=== PATIENT | male | born 1960 | race Caucasian/White ===

== ENCOUNTER 2021-01-17 10:12 | Inpatient (IN) | payer MEDICARE, SELFPAY ==
[2021-01-17] VITALS (46 sets, daily range): BP systolic 66–174; BP diastolic 44–79; PULSE 63–95; RESP 13–30; TEMP 36.2–36.6; O2SAT 61–100; BMI 13.5
--- NOTE | 2021-01-17 10:50 | ED.GENADULT ---
HPI - General Adult General Chief complaint: Abdominal Pain Stated complaint: FTT Time Seen by Provider: 01/17/21 10:50 History of Present Illness HPI narrative: 60-year-old gentleman with presumed schizophrenia, living with his father complains of ?losing my marbles? reports ?heading toward a psych evaluation, notes that the ?Feds and the FBI are going to call prescriptions into a pharmacy for him. In July he began to have stomach issues and has been having difficulty eating. He believes he has lost 130 lb over last 6 months. He describes no medications at this time. His sister came to visit and was concerned with his increasing psychotic/delusional thinking and his dramatic weight loss and brings him in for further evaluation. Related Data Home Medications Medication Instructions Recorded Confirmed OMEPRAZOLE (PRILOSEC) 20 mg PO Q DAY #0 07/11/11 OXYCODONE/ACET 1 tab PO TIDP #0 02/26/12 baclofen 10 mg PO TIDP #0 02/26/12 gabapentin [Neurontin] 800 mg PO TID #0 02/26/12 MORPHINE SULFATE (Morphine Sulfate 30 mg PO TID #0 03/07/12 ER) Oxycodone (OXYCODONE IR) 5 mg PO Q4HP #0 06/12/12 Allergies Allergy/AdvReac Type Severity Reaction Status Date / Time No Known Drug Allergies Allergy Verified 01/17/21 11:02 Patient History Medical History Psychosis Social History Smoking Status: Current every day smoker Exam Initial Vital Signs Initial Vital Signs: Vital Signs Pulse Rate 84 01/17/21 10:22 Pulse Oximetry 100 01/17/21 10:22 Course Orders Ordered: ED Orders 01/17/21 11:07 Urine Drug Screen, Rapid Stat 01/17/21 11:10 COVID19 - ADMIT ([employer] swab/PCR) Stat 01/17/21 11:18 Complete Blood Count AUTO DIFF Stat Comprehensive Metabolic Panel Stat Lipase Stat Partial Thromboplastin Time Stat Phosphorous Stat Prothrombin Time INR Stat 01/17/21 11:56 CT abdomen pelvis w con Stat CT head/brain wo con Stat XR chest 1V Stat Potassium Chloride 40 meq/ (Sodium Chloride) 520 mls @ 130 mls/hr IV NOW ONE Stop: 01/17/21 15:54 Last Admin: 01/17/21 12:28 Dose: 130 mls/hr Documented by: WALLACE Cosigned by: BTONER Discontinued Medications Sodium Chloride (Normal Saline 0.9%) 1,000 mls @ 1,000 mls/hr IV BOLUS ONE Stop: 01/17/21 12:53 Last Admin: 01/17/21 12:28 Dose: 1,000 mls/hr Documented by: WALLACE Vital Signs Vital signs: Vital Signs - 8 hr 01/17/21 10:22 01/17/21 10:30 01/17/21 10:31 Temperature Pulse Rate 84 85 85 Respiratory Rate Blood Pressure 107/70 Pulse Oximetry 100 100 100 01/17/21 10:58 01/17/21 11:00 01/17/21 11:30 Temperature 97.6 F Pulse Rate 86 86 82 Respiratory Rate 16 Blood Pressure 96/62 96/62 92/63 Pulse Oximetry 100 100 100 01/17/21 12:00 01/17/21 12:20 01/17/21 12:30 Temperature Pulse Rate 81 84 81 Respiratory Rate 14 Blood Pressure 88/53 L 92/63 90/61 Pulse Oximetry 99 100 100 01/17/21 13:00 01/17/21 13:07 01/17/21 13:15 Temperature Pulse Rate 79 80 79 Respiratory Rate 16 16 14 Blood Pressure 84/57 L 83/55 L 86/58 L Pulse Oximetry 100 100 100 01/17/21 13:30 01/17/21 13:35 01/17/21 13:45 Temperature Pulse Rate 82 79 78 Respiratory Rate 22 19 16 Blood Pressure 90/51 L 90/56 L 89/59 L Pulse Oximetry 99 100 100 Medical Decision Making Medical Records Medical records reviewed: Yes I reviewed the patient's medical records. Lab Data Lab results reviewed: Yes I reviewed the patient's lab results. Result diagrams: 01/17/21 11:18 01/17/21 11:18 Labs: Lab Results 01/17/21 01/17/21 01/17/21 Range/Units 11:10 11:18 11:18 WBC 3.6 L (4.5-11.0) X10^3/uL RBC 3.33 L (4.5-5.9) X10^6/uL Hgb 11.6 L (13.5-17.5) g/dL Hct 33.6 L (41-53) % MCV 101.0 H (80-100) fL MCH 34.9 H (26-34) PG MCHC 34.6 (30-36) % RDW 13.9 (11.6-14.8) % Plt Count 154 (150-400) X10^3/uL Neut % (Auto) 50.5 (50-75) % Lymph % (Auto) 36.2 (25-40) % [place] % (Auto) 11.3 (3-14) % Eos % (Auto) 1.0 L (2-4) % Baso % (Auto) 1.0 (0-2) % Neut # (Auto) 1800 (1802-7526) /uL Lymph # (Auto) 1300 (1988-1295) /uL [place] # (Auto) 400 (0-900) /uL Eos # (Auto) 0 (0-450) /uL Baso # (Auto) 0 (0-100) /uL PT 13.6 H (10.1-12.7) SECONDS INR 1.2 (0.9-1.3) APTT 31 (26.4-36.2) SECONDS Sodium (137-145) mmol/L Potassium (3.4-5.1) mmol/L Chloride (98-107) mmol/L Carbon Dioxide (22-32) mmol/L BUN (9-20) mg/dL Creatinine (0.66-1.25) mg/dL Estimated GFR (>60) mL/min BUN/Creatinine Ratio (6-22) Glucose (80-110) mg/dL Calcium (8.4-10.2) mg/dL Phosphorus (2.3-3.7) mg/dL Total Bilirubin (0.2-1.3) mg/dL AST (17-59) IU/L ALT (<50) IU/L Alkaline Phosphatase (38-126) U/L Total Protein (6.3-8.2) g/dL Albumin (3.5-5.0) g/dL Globulin (1.7-4.1) g/dL Albumin/Globulin Ratio (1.0-2.8) Lipase (23-300) U/L SARS-CoV-2 (PCR) Negative (Negative) 01/17/21 01/17/21 Range/Units 11:18 11:18 WBC (4.5-11.0) X10^3/uL RBC (4.5-5.9) X10^6/uL Hgb (13.5-17.5) g/dL Hct (41-53) % MCV (80-100) fL MCH (26-34) PG MCHC (30-36) % RDW (11.6-14.8) % Plt Count (150-400) X10^3/uL Neut % (Auto) (50-75) % Lymph % (Auto) (25-40) % [place] % (Auto) (3-14) % Eos % (Auto) (2-4) % Baso % (Auto) (0-2) % Neut # (Auto) (7243-2004) /uL Lymph # (Auto) (6765-1656) /uL [place] # (Auto) (0-900) /uL Eos # (Auto) (0-450) /uL Baso # (Auto) (0-100) /uL PT (10.1-12.7) SECONDS INR (0.9-1.3) APTT (26.4-36.2) SECONDS Sodium 128 L (137-145) mmol/L Potassium 2.2 L* (3.4-5.1) mmol/L Chloride 80 L (98-107) mmol/L Carbon Dioxide 39 H (22-32) mmol/L BUN 27 H (9-20) mg/dL Creatinine 1.10 (0.66-1.25) mg/dL Estimated GFR > 60.0 (>60) mL/min BUN/Creatinine Ratio 24.5 H (6-22) Glucose 104 (80-110) mg/dL Calcium 8.3 L (8.4-10.2) mg/dL Phosphorus 3.3 (2.3-3.7) mg/dL Total Bilirubin 0.8 (0.2-1.3) mg/dL AST 41 (17-59) IU/L ALT 15 (<50) IU/L Alkaline Phosphatase 99 (38-126) U/L Total Protein 6.0 L (6.3-8.2) g/dL Albumin 2.9 L (3.5-5.0) g/dL Globulin 3.1 (1.7-4.1) g/dL Albumin/Globulin Ratio 0.9 L (1.0-2.8) Lipase 466 H (23-300) U/L SARS-CoV-2 (PCR) (Negative) Discharge Plan Departure Prescriptions: No Action OMEPRAZOLE (PRILOSEC) 20 mg PO Q DAY Qty: 0 RF: 0 baclofen 10 MG tablet 10 mg PO TIDP Qty: 0 RF: 0 gabapentin [Neurontin] 800 MG tablet 800 mg PO TID Qty: 0 RF: 0 OXYCODONE/ACET 1 tab PO TIDP Qty: 0 RF: 0 MORPHINE SULFATE (Morphine Sulfate ER) 30 mg PO TID Qty: 0 RF: 0 Oxycodone (OXYCODONE IR) 5 mg PO Q4HP Qty: 0 RF: 0
[2021-01-17 11:28] LABS: Add Manual Diff / Slide Review NO; Basophils Absolute Auto 0 /uL (0-100); Eosinophils Absolute Auto 0 /uL (0-450); Hematocrit 33.6 % (41-53); Hemoglobin 11.6 g/dL (13.5-17.5); Lymphocytes Absolute Auto 1300 /uL (1100-4500); Lymphocytes Percent Auto 36.2 % (25-40); Mean Corpuscular HGB Conc 34.6 % (30-36); Mean Corpuscular Hemoglobin 34.9 PG (26-34); Monocytes Absolute Auto 400 /uL (0-900); Monocytes Percent Auto 11.3 % (3-14); Neutrophils Absolute Auto 1800 /uL (1500-7000); Neutrophils Percent Auto 50.5 % (50-75); Platelet Count 154 X10^3/uL (150-400); Red Blood Cell Count 3.33 X10^6/uL (4.5-5.9); Red Cell Distribution Width 13.9 % (11.6-14.8); White Blood Cell Count 3.6 X10^3/uL (4.5-11.0)
[2021-01-17 11:34] LABS: INR 1.2 (0.9-1.3); Prothrombin Time 13.6 SECONDS (10.1-12.7)
[2021-01-17 11:36] LABS: PTT Partial Thromboplastin Tim 31 SECONDS (26.4-36.2)
--- NOTE | 2021-01-17 11:38 | ED_ITS ---
HPI - General Adult General Chief complaint: Abdominal Pain Stated complaint: FTT Time Seen by Provider: 01/17/21 10:50 Source: patient Mode of arrival: EMS Limitations: no limitations History of Present Illness HPI narrative: 60-year-old gentleman with a history of psychotic and delusional behavior, history of heavy alcohol use with none since around July of 2020, presents with concerns for failure to thrive. He apparently lives with his father here in [place]. His sister, [place]([phone]) came to visit over the last few days and noted dramatic weight loss, worsening delusions, notes severe abdominal pain since around with minimal p.o. intake and dramatically increased weakness. She notes that he does still continue to smoke. Patient reports that ?I am losing my marbles, but at least I know about it. I am heading toward psych eval. The Feds and the FBI know about it and the pharmacy is going to help me but I do not need a doctor? Related Data Home Medications Medication Instructions Recorded Confirmed No Known Home Medications 01/17/21 01/17/21 Allergies Allergy/AdvReac Type Severity Reaction Status Date / Time No Known Drug Allergies Allergy Verified 01/17/21 11:02 Review of Systems Review of Systems Narrative: Significant abdominal pain, significant weight loss possibly as much as 130 lb in the last 6 months, headaches Remainder of review is limited by his delusional thinking Patient History Medical History Psychosis Social History household members: family Smoking Status: Current every day smoker alcohol intake: never Smoking Status: Current every day smoker alcohol intake frequency: holidays/special occasions only Substance Use Type: does not use Exam Narrative Exam Narrative: General: Cachectic gentleman with sunglasses on wrapped in blankets, poor eye contact HEENT: Dry mucous membranes, normal sclera with reactive pupils, Respiratory: Lungs are clear to auscultation, no wheezing no rales no rhonchi. Full and symmetrical air movement Cardiac: Regular rate and rhythm no murmurs no bruits Abdomen: Scaphoid, no tenderness to palpation, no rebound or guarding, hypoactive bowel tones, no flank pain Skin: Pale and thin, no rashes Neurologic: Grossly neurologically intact with no obvious asymmetries or abnormalities Extremities: No trauma, well perfused Psych: Psychotic and delusional but cooperative with overall poor insight Initial Vital Signs Initial Vital Signs: Vital Signs Pulse Rate 84 01/17/21 10:22 Pulse Oximetry 100 01/17/21 10:22 Course Orders Ordered: ED Orders 01/17/21 11:07 Urine Drug Screen, Rapid Stat 01/17/21 11:10 COVID19 - ADMIT ([employer] swab/PCR) Stat 01/17/21 11:18 Complete Blood Count AUTO DIFF Stat Comprehensive Metabolic Panel Stat Lactate (Lactic Acid) Stat Lipase Stat Partial Thromboplastin Time Stat Phosphorous Stat Prothrombin Time INR Stat 01/17/21 11:56 CT abdomen pelvis w con Stat CT head/brain wo con Stat XR chest 1V Stat 01/17/21 15:17 Blood Culture Stat Acetaminophen (Acetaminophen 325 Mg Tablet) 650 mg PO Q6HR PRN PRN Reason: Fever Enoxaparin Sodium (Enoxaparin 40 Mg/0.4 Ml Syringe) 40 mg SUBCUT DAILY KAILYN Piperacillin/Tazobactam/Dextrose (Zosyn) 4.5 gm in 100 mls @ 200 mls/hr IV NOW KAILYN Last Infusion: 01/17/21 16:32 Dose: 0 mls/hr Documented by: Admin: 01/17/21 15:59 Dose: 200 mls/hr Documented by: ARUNA Lactated Ringer's (Lactated Ringers) 1,000 mls @ 150 mls/hr IV CONT KAILYN Last Admin: 01/17/21 18:27 Dose: 150 mls/hr Documented by: AGUILAR Famotidine (Pepcid) 20 mg in 50 mls @ 200 mls/hr IV Q12H KAILYN Piperacillin/Tazobactam/Dextrose (Zosyn) 3.375 gm in 50 mls @ 12.5 mls/hr IV Q8H KAILYN Potassium Chloride 40 meq/ (Sodium Chloride) 520 mls @ 130 mls/hr IV Q4H KAILYN Stop: 01/18/21 01:51 Last Admin: 01/17/21 18:29 Dose: 130 mls/hr Documented by: AGUILAR Cosigned by: SIVA Metoclopramide HCl (Metoclopramide 10 Mg/2 Ml Inj) 10 mg IV Q8HR PRN PRN Reason: Nausea And Vomiting Morphine Sulfate (Morphine 2 Mg/Ml Inj) 2 mg IV Q4HR PRN PRN Reason: abdominal pain Naloxone HCl (Naloxone 0.4 Mg/Ml Vial) 0.2 mg IV Q2MIN PRN PRN Reason: Opiate Reversal Nicotine (Nicotine 14 Patch) 14 mg TOP DAILY KAILYN Ondansetron HCl (Ondansetron 4 Mg/2 Ml Inj) 4 mg IV Q6HR PRN PRN Reason: Nausea And Vomiting Sodium Chloride (Sodium Chloride 0.9% Flush) 10 ml IV PRN PRN PRN Reason: Flush Discontinued Medications Potassium Chloride 40 meq/ (Sodium Chloride) 520 mls @ 130 mls/hr IV NOW ONE Stop: 01/17/21 15:54 Last Infusion: 01/17/21 15:46 Dose: 0 mls/hr Documented by: ARUNA Cosigned by: WALLACE Admin: 01/17/21 12:28 Dose: 130 mls/hr Documented by: WALLACE Cosigned by: ZEYNEP Sodium Chloride (Normal Saline 0.9%) 1,000 mls @ 1,000 mls/hr IV BOLUS ONE Stop: 01/17/21 12:53 Last Infusion: 01/17/21 15:46 Dose: 0 mls/hr Documented by: Admin: 01/17/21 12:28 Dose: 1,000 mls/hr Documented by: WALLACE Lactated Ringer's (Lactated Ringers) 1,000 mls @ 1,000 mls/hr IV BOLUS ONE Stop: 01/17/21 18:07 Last Admin: 01/17/21 17:15 Dose: 1,000 mls/hr Documented by: SIVA Vital Signs Vital signs: Vital Signs - 8 hr 01/17/21 11:30 01/17/21 12:00 01/17/21 12:20 Pulse Rate 82 81 84 Respiratory Rate Blood Pressure 92/63 88/53 L 92/63 Pulse Oximetry 100 99 100 01/17/21 12:30 01/17/21 13:00 01/17/21 13:07 Pulse Rate 81 79 80 Respiratory Rate 14 16 16 Blood Pressure 90/61 84/57 L 83/55 L Pulse Oximetry 100 100 100 01/17/21 13:15 01/17/21 13:30 01/17/21 13:35 Pulse Rate 79 82 79 Respiratory Rate 14 22 19 Blood Pressure 86/58 L 90/51 L 90/56 L Pulse Oximetry 100 99 100 01/17/21 13:45 01/17/21 14:00 01/17/21 14:15 Pulse Rate 78 78 78 Respiratory Rate 16 16 14 Blood Pressure 89/59 L 87/59 L 86/58 L Pulse Oximetry 100 100 100 01/17/21 14:30 01/17/21 14:36 01/17/21 14:45 Pulse Rate 72 70 80 Respiratory Rate 14 21 19 Blood Pressure 73/52 L 74/51 L 87/58 L Pulse Oximetry 100 100 100 Medical Decision Making Medical Records Medical records reviewed: Yes I reviewed the patient's medical records. Lab Data Lab results reviewed: Yes I reviewed the patient's lab results. Result diagrams: 01/17/21 11:18 01/17/21 11:18 Labs: Lab Results 01/17/21 01/17/21 01/17/21 Range/Units 11:10 11:18 11:18 WBC 3.6 L (4.5-11.0) X10^3/uL RBC 3.33 L (4.5-5.9) X10^6/uL Hgb 11.6 L (13.5-17.5) g/dL Hct 33.6 L (41-53) % MCV 101.0 H (80-100) fL MCH 34.9 H (26-34) PG MCHC 34.6 (30-36) % RDW 13.9 (11.6-14.8) % Plt Count 154 (150-400) X10^3/uL Neut % (Auto) 50.5 (50-75) % Lymph % (Auto) 36.2 (25-40) % [place] % (Auto) 11.3 (3-14) % Eos % (Auto) 1.0 L (2-4) % Baso % (Auto) 1.0 (0-2) % Neut # (Auto) 1800 (3910-8432) /uL Lymph # (Auto) 1300 (6261-1142) /uL [place] # (Auto) 400 (0-900) /uL Eos # (Auto) 0 (0-450) /uL Baso # (Auto) 0 (0-100) /uL PT 13.6 H (10.1-12.7) SECONDS INR 1.2 (0.9-1.3) APTT 31 (26.4-36.2) SECONDS Sodium (137-145) mmol/L Potassium (3.4-5.1) mmol/L Chloride (98-107) mmol/L Carbon Dioxide (22-32) mmol/L BUN (9-20) mg/dL Creatinine (0.66-1.25) mg/dL Estimated GFR (>60) mL/min BUN/Creatinine Ratio (6-22) Glucose (80-110) mg/dL Lactate (0.7-2.1) mmol/L Calcium (8.4-10.2) mg/dL Phosphorus (2.3-3.7) mg/dL Total Bilirubin (0.2-1.3) mg/dL AST (17-59) IU/L ALT (<50) IU/L Alkaline Phosphatase (38-126) U/L Total Protein (6.3-8.2) g/dL Albumin (3.5-5.0) g/dL Globulin (1.7-4.1) g/dL Albumin/Globulin Ratio (1.0-2.8) Lipase (23-300) U/L SARS-CoV-2 (PCR) Negative (Negative) 01/17/21 01/17/21 01/17/21 Range/Units 11:18 11:18 11:18 WBC (4.5-11.0) X10^3/uL RBC (4.5-5.9) X10^6/uL Hgb (13.5-17.5) g/dL Hct (41-53) % MCV (80-100) fL MCH (26-34) PG MCHC (30-36) % RDW (11.6-14.8) % Plt Count (150-400) X10^3/uL Neut % (Auto) (50-75) % Lymph % (Auto) (25-40) % [place] % (Auto) (3-14) % Eos % (Auto) (2-4) % Baso % (Auto) (0-2) % Neut # (Auto) (6438-3352) /uL Lymph # (Auto) (6877-3311) /uL [place] # (Auto) (0-900) /uL Eos # (Auto) (0-450) /uL Baso # (Auto) (0-100) /uL PT (10.1-12.7) SECONDS INR (0.9-1.3) APTT (26.4-36.2) SECONDS Sodium 128 L (137-145) mmol/L Potassium 2.2 L* (3.4-5.1) mmol/L Chloride 80 L (98-107) mmol/L Carbon Dioxide 39 H (22-32) mmol/L BUN 27 H (9-20) mg/dL Creatinine 1.10 (0.66-1.25) mg/dL Estimated GFR > 60.0 (>60) mL/min BUN/Creatinine Ratio 24.5 H (6-22) Glucose 104 (80-110) mg/dL Lactate 1.0 (0.7-2.1) mmol/L Calcium 8.3 L (8.4-10.2) mg/dL Phosphorus 3.3 (2.3-3.7) mg/dL Total Bilirubin 0.8 (0.2-1.3) mg/dL AST 41 (17-59) IU/L ALT 15 (<50) IU/L Alkaline Phosphatase 99 (38-126) U/L Total Protein 6.0 L (6.3-8.2) g/dL Albumin 2.9 L (3.5-5.0) g/dL Globulin 3.1 (1.7-4.1) g/dL Albumin/Globulin Ratio 0.9 L (1.0-2.8) Lipase 466 H (23-300) U/L SARS-CoV-2 (PCR) (Negative) Imaging Data CT scan - abdomen/pelvis: Radiologist's Impression: FINDINGS: Image quality: Excellent. ABDOMEN: Lung bases: There are moderate to severe centrilobular emphysematous changes within the visualized lung bases. Mild dependent atelectasis and scarring are also present. Heart size is normal. Solid organs: There is hypoattenuation of the liver suggestive of fatty infiltration with slight relative hypoattenuation along the gallbladder fossa which may represent focal sparing or mild edema. The gallbladder demonstrates mild wall enhancement without definite thickening. A few small calcified gallstones are demonstrated in the gallbladder fundus. Biliary system is non-dilated. The spleen is normal in size. No adrenal nodules. Kidneys demonstrate no hydronephrosis. There is peripancreatic fat stranding and fluid compatible with acute pancreatitis. Hypoenhancement is demonstrated within the pancreatic head, uncinate process, and body suggestive of necrotizing pancreatitis. There is a curvilinear hypoattenuating loculated fluid collection demonstrated anterior to the pancreatic head coursing posterior inferior to the stomach measuring approximately 2.6 cm in anteroposterior extent by 3.0 cm in craniocaudal extent by 0.7 cm in thickness. The findings likely represent an acute necrotic collection. Hypoenhancement also demonstrated distally in the pancreatic tail with an adjacent loculated thick-walled curvilinear peripancreatic collection measuring up to approximately 2.0 x 1.0 cm in transverse dimension extending to the spleen. This appears contiguous with an intrapancreatic loculated fluid collection in the pancreatic tail measuring up to 1.6 x 1.1 cm. Findings also likely represent an acute necrotic collection. There is mild dilatation of the pancreatic duct which measures up to 0.3 cm in the pancreatic body and tail. Coarse calcifications are demonstrated within the uncinate process of the pancreas likely related to sequelae of chronic pancreatitis. Peritoneum and bowel: There is gastric wall thickening in the antrum adjacent to the peripancreatic inflammatory changes. Hyperemia is also demonstrated within the gastric wall. Bowel loops demonstrate normal wall thickness and caliber. No evidence of appendicitis. Moderate colonic stool distention is present in the rectum which may reflect constipation or mild impaction. A small amount of peripancreatic free fluid is demonstrated as described above. No free air Nodes and vessels: No retroperitoneal or mesenteric adenopathy by size criteria. Aorta and inferior vena cava are normal in size. Miscellaneous: No ventral hernias. PELVIS: Genitourinary: Bladder wall thickness is normal. Miscellaneous: No inguinal hernias or adenopathy. Bones: No suspicious bony lesions. No vertebral body compression fractures. IMPRESSION: 1. Findings compatible with necrotizing pancreatitis as described with 2 small loculated associated peripancreatic fluid collections likely representing acute necrotic collections. Mild pancreatic duct dilatation also demonstrated in the pancreatic body and tail. Follow-up is recommended to demonstrate resolution and exclude an underlying mass. 2. No biliary ductal dilatation. 3. Small calcified gallstones in the gallbladder fundus with mild nonspecific enhancement of the gallbladder wall . No definite gallbladder wall thickening or peripancreatic fluid. If there is clinical suspicion for cholecystitis, further evaluation may be obtained with ultrasound. 4. Segmental gastric wall thickening in the antrum likely representing reactive changes secondary to adjacent pancreatitis. Nonspecific hyperemia in the gastric wall may also be reactive. Dictated by: Alejandro Yanes M.D. on 01/17/2021 at 12:31 Chest x-ray: Radiologist's Impression: FINDINGS: Surgical changes and devices: None. Lungs and pleura: Lungs are clear. No pleural effusions or pneumothorax. Mediastinum: Mediastinal contours appear normal. Heart size is normal. Bones and chest wall: No suspicious bony lesions. Overlying soft tissues appear unremarkable. IMPRESSION: No acute pulmonary process. Dictated by: Trini Aguirre M.D. on 01/17/2021 at 11:13 CT scan - head: Radiologist's Impression: FINDINGS: Image quality: Excellent. CSF spaces: Basal cisterns are patent. No extra-axial fluid collections. Ventricles are normal in size and shape. Brain: No intracranial hemorrhage, mass, or mass effect. Olmedo-white matter interface appears preserved. Skull and face: Calvarium and visualized facial bones are intact, without suspicious lesions. Sinuses: Visualized sinuses and mastoids are clear. IMPRESSION: 1. No acute intracranial abnormality. Dictated by: Alejandro Yanes M.D. 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 Lipase is only minimally elevated at this point but he continues to have abdominal pain. Dramatic weight loss secondary to abdominal pain with persistent nausea all complicated by his baseline psychosis, delusions. No evidence of sepsis, acute coronary syndrome, tumors or masses and no intracranial abnormalities appreciated. With his dramatic weight loss and cachexia he may need TPN at this point certainly will need hospitalization for pain and nausea management. At very high risk for refeeding syndrome and ventricular arrhythmias. He is currently on his 2nd L of fluid and when he is awake and talking blood pressures are in the systolic 90 range when he sleeping may drop as low as 70. He is not febrile and I do not suspect that he is septic at this time. Because of the necrotizing pancreatitis identified on the CT scan will add Zosyn. Will also add a lactic acid. Care is been reviewed with Dr. Dodson, hospitalist she will accept admission. Patient will go to the ICU with the low blood pressures and use his hypokalemia as well as hyponatremia. Will likely need TPN with the severity of cachexia and the continued abdominal pain, nausea and vomiting. Chronic psychiatric issues are stable however he may well benefit from inpatient psychiatric consultation. Discharge Plan Departure Patient Disposition: Admitted As Inpatient Clinical Impression: Necrotizing pancreatitis, Acute hypokalemia, Acute hyponatremia, Paranoid delusion Admit Date/Time: 01/17/21 14:59 Admit Provider: Christiane Dodson
[2021-01-17 11:39] LABS: Alanine Aminotransferase 15 IU/L (<50); Albumin 2.9 g/dL (3.5-5.0); Albumin Globulin Ratio 0.9 (1.0-2.8); Alkaline Phosphatase 99 U/L (38-126); Aspartate Aminotransferase 41 IU/L (17-59); BUN Creatinine Ratio 24.5 (6-22); Bilirubin Total 0.8 mg/dL (0.2-1.3); Blood Urea Nitrogen 27 mg/dL (9-20); Calcium 8.3 mg/dL (8.4-10.2); Carbon Dioxide 39 mmol/L (22-32); Chloride 80 mmol/L (98-107); Estimated Glomerular Filt Rate > 60.0 mL/min (>60); Globulin 3.1 g/dL (1.7-4.1); Glucose 104 mg/dL (80-110); HEMOLYSIS < 15 (0-50); Lipase 466 U/L (23-300); Sodium 128 mmol/L (137-145)
[2021-01-17 11:41] LABS: Potassium 2.2 mmol/L (3.4-5.1)
[2021-01-17 11:55] LABS: COVID19 - ADMIT (NP swab/PCR) Negative (Negative)
--- NOTE | 2021-01-17 11:56 | DI.CT.S_ITS ---
PROCEDURE: CT ABDOMEN PELVIS W CON INDICATIONS: abdominal pain, weight loss TECHNIQUE: After the administration of intravenous contrast, 5 mm thick sections acquired from the diaphragm to the symphysis. 5 mm coronal and sagittal reformats were acquired. For radiation dose reduction, the following was used: automated exposure control, adjustment of mA and/or kV according to patient size. COMPARISON: [facility], CT, ABDOMEN/PELVIS WITH CONTRAST, 06/12/2007, 14:00. FINDINGS: Image quality: Excellent. ABDOMEN: Lung bases: There are moderate to severe centrilobular emphysematous changes within the visualized lung bases. Mild dependent atelectasis and scarring are also present. Heart size is normal. Solid organs: There is hypoattenuation of the liver suggestive of fatty infiltration with slight relative hypoattenuation along the gallbladder fossa which may represent focal sparing or mild edema. The gallbladder demonstrates mild wall enhancement without definite thickening. A few small calcified gallstones are demonstrated in the gallbladder fundus. Biliary system is non-dilated. The spleen is normal in size. No adrenal nodules. Kidneys demonstrate no hydronephrosis. There is peripancreatic fat stranding and fluid compatible with acute pancreatitis. Hypoenhancement is demonstrated within the pancreatic head, uncinate process, and body suggestive of necrotizing pancreatitis. There is a curvilinear hypoattenuating loculated fluid collection demonstrated anterior to the pancreatic head coursing posterior inferior to the stomach measuring approximately 2.6 cm in anteroposterior extent by 3.0 cm in craniocaudal extent by 0.7 cm in thickness. The findings likely represent an acute necrotic collection. Hypoenhancement also demonstrated distally in the pancreatic tail with an adjacent loculated thick-walled curvilinear peripancreatic collection measuring up to approximately 2.0 x 1.0 cm in transverse dimension extending to the spleen. This appears contiguous with an intrapancreatic loculated fluid collection in the pancreatic tail measuring up to 1.6 x 1.1 cm. Findings also likely represent an acute necrotic collection. There is mild dilatation of the pancreatic duct which measures up to 0.3 cm in the pancreatic body and tail. Coarse calcifications are demonstrated within the uncinate process of the pancreas likely related to sequelae of chronic pancreatitis. Peritoneum and bowel: There is gastric wall thickening in the antrum adjacent to the peripancreatic inflammatory changes. Hyperemia is also demonstrated within the gastric wall. Bowel loops demonstrate normal wall thickness and caliber. No evidence of appendicitis. Moderate colonic stool distention is present in the rectum which may reflect constipation or mild impaction. A small amount of peripancreatic free fluid is demonstrated as described above. No free air Nodes and vessels: No retroperitoneal or mesenteric adenopathy by size criteria. Aorta and inferior vena cava are normal in size. Miscellaneous: No ventral hernias. PELVIS: Genitourinary: Bladder wall thickness is normal. Miscellaneous: No inguinal hernias or adenopathy. Bones: No suspicious bony lesions. No vertebral body compression fractures. IMPRESSION: 1. Findings compatible with necrotizing pancreatitis as described with 2 small loculated associated peripancreatic fluid collections likely representing acute necrotic collections. Mild pancreatic duct dilatation also demonstrated in the pancreatic body and tail. Follow-up is recommended to demonstrate resolution and exclude an underlying mass. 2. No biliary ductal dilatation. 3. Small calcified gallstones in the gallbladder fundus with mild nonspecific enhancement of the gallbladder wall . No definite gallbladder wall thickening or peripancreatic fluid. If there is clinical suspicion for cholecystitis, further evaluation may be obtained with ultrasound. 4. Segmental gastric wall thickening in the antrum likely representing reactive changes secondary to adjacent pancreatitis. Nonspecific hyperemia in the gastric wall may also be reactive. Dictated by: Alejandro Yanes M.D. on 01/17/2021 at 12:31 Approved by: Alejandro Yanes M.D. on 01/17/2021 at 12:43
--- NOTE | 2021-01-17 11:56 | DI.RAD.S_ITS ---
PROCEDURE: XR CHEST 1V INDICATIONS: cough TECHNIQUE: One view of the chest was acquired. COMPARISON: [facility], CR, CHEST 1VW (PORTABLE), 04/26/2012, 8:36. [facility], CR, CHEST 2 VIEW, 07/28/2011, 11:13. FINDINGS: Surgical changes and devices: None. Lungs and pleura: Lungs are clear. No pleural effusions or pneumothorax. Mediastinum: Mediastinal contours appear normal. Heart size is normal. Bones and chest wall: No suspicious bony lesions. Overlying soft tissues appear unremarkable. IMPRESSION: No acute pulmonary process. Dictated by: Trini Aguirre M.D. on 01/17/2021 at 11:13 Approved by: Trini Aguirre M.D. on 01/17/2021 at 11:14
--- NOTE | 2021-01-17 11:56 | DI.CT.S_ITS ---
PROCEDURE: CT HEAD/BRAIN WO CON INDICATIONS: altered mental status TECHNIQUE: Noncontrast 4.5 mm thick angled axial sections acquired from the foramen magnum to the vertex, with coronal and sagittal reformats. For radiation dose reduction, the following was used: automated exposure control, adjustment of mA and/or kV according to patient size. COMPARISON: [facility], CT, CT BRAIN WO CON, 12/26/2016, 13:00. FINDINGS: Image quality: Excellent. CSF spaces: Basal cisterns are patent. No extra-axial fluid collections. Ventricles are normal in size and shape. Brain: No intracranial hemorrhage, mass, or mass effect. Olmedo-white matter interface appears preserved. Skull and face: Calvarium and visualized facial bones are intact, without suspicious lesions. Sinuses: Visualized sinuses and mastoids are clear. IMPRESSION: 1. No acute intracranial abnormality. Dictated by: Alejandro Yanes M.D. on 01/17/2021 at 12:28 Approved by: Alejandro Yanes M.D. on 01/17/2021 at 12:30
[2021-01-17 12:18] LABS: Phosphorous 3.3 mg/dL (2.3-3.7)
[2021-01-17] MEDS: POTASSIUM CHLORIDE 40 MEQ in SODIUM CHLORIDE 0.9% 500 ML 130 ML IV ×2 (12:28→18:29)
[2021-01-17] MEDS: SODIUM CHLORIDE 0.9% 1,000 ML 1000 ML IV (12:28)
--- NOTE | 2021-01-17 13:15 | PC.NURSE ---
Dr Sandoval aware of pts bp,no new orders at this time.
[2021-01-17] MEDS: PIPERACILLIN-TAZO 4.5 GM/100 ML FROZ.PIGGY IV (15:59)
[2021-01-17] MEDS: LACTATED RINGERS 1,000 ML 1000 ML IV (17:15)
--- NOTE | 2021-01-17 18:14 | P.HP_ITS ---
History of Present Illness History of Present Illness Date Patient Seen: 01/17/21 Chief complaint: FTT Narrative: The patient is a 60-year-old male with an on diagnosis psychiatric disorder likely schizophrenia who presents to the hospital for nausea vomiting abdominal pain and significant weight loss. Patient is a poor historian. He is somewhat agitated and irritable related to answering questions which were previously discussed in the emergency department. Having said that the patient reports for the past 7 weeks he has been unable to eat. He describes significant nausea and inability to tolerate taking anything orally. He has had associated abdominal pain also for the past 7 weeks. He denies any vomiting. He denies any hematemesis. He denies any melena. He denies bright red blood per rectum. Patient states he used to drink heavily. He quit about 7 weeks ago. He reports fevers but is unclear how high his temperature was. He has no chills, no shortness of breath. The patient states he has lost over 130 lb over the past 6 months. He believes that the FBI is monitoring him and after him. He does admit to using marijuana for an appetite stimulant but is on no other medications. The patient has not seen a physician in many years. Patient reports he quit smoking however per his sister he continues to smoke significantly. The sister the came from [place] to visit him and recommended he present to the hospital for further evaluation. The patient is significantly mac aided. He refuses to cooperate with answering questions in the further and is admitted to the hospital for further evaluation. In the emergency room his white count was 3.6, hemoglobin 11.6, hematocrit 33.6. His MCV is 101. His sodium was 128 potassium 2.2 chloride 80 CO2 of 39 BUN of 27 with a creatinine of 1.1 his total protein is 6 albumin is 2.9 lipase is 466. His COVID test PCR is negative. Patient had a CT of the abdomen and pelvis remarkable for peripancreatic fat stranding with fluid compatible with acute pancreatitis. There was hypo enhancement demonstrated within the pancreatic head, uncinate process, and body suggestive of necrotizing pancreatitis. There was a curvy linear hypoattenuating loculated fluid collection anteriorly to the pancreatic head. This is 2.6 cm anteriorly 3 cm craniocaudal and 0.7 cm in thickness. This is felt to be in acute necrotic collection. There is also distally in the pancreatic tail a loculated thick-walled peripancreatic collection measuring 2 x 1 cm. This is contiguous with an intrapancreatic loculated fluid collection in the pancreatic tail measuring 1.6 x 1.3 the gastric wall is thickened in the antrum. Patient also had a head CT in the emergency department which was negative. Chest x-ray confirmed no acute pulmonary process. Patient is admitted to the hospital for further evaluation of his necrotizing pancreatitis and significant weight loss. Patient was hypotensive in the emergency room with his systolic blood pressure of 81/55. Serum lactate was normal. The patient was admitted to the hospital for necrotizing pancreatitis, dehydration, and significant severe protein calorie malnutrition. Patient History Medical History (Updated 01/17/21 @ 14:55 by Maria Teresa Sandoval MD) Psychosis Family & Social History Social History: household members family Prior Living Arrangements House Safety & Behavioral: Feels Safe in Current Yes Environment Been Physically Hurt or No Threatened By a Person Suicidal Ideation Description None Suicide Plan Description No Plan Tobacco & Substance use: Tobacco type cigarettes Smoking Status Current every day smoker alcohol intake never alcohol intake frequency holiday/special occasion Substance Use Type marijuana Meds Home Medications and Allergies Home Medications Medication Instructions Recorded Confirmed Type No Known Home Medications 01/17/21 01/17/21 History Allergies Allergy/AdvReac Type Severity Reaction Status Date / Time No Known Drug Allergies Allergy Verified 01/17/21 11:02 Review of Systems Review of Systems Narrative: Patient is uncooperative with exam and will not answer questions further. He will not provide family history as well. ROS: Yes All systems reviewed with the patient and are negative except as otherwise documented Exam Vital Signs (past 8 hours): - 01/17/21 10:22 01/17/21 10:30 01/17/21 10:31 Temperature Pulse Rate 84 85 85 Respiratory Rate Blood Pressure 107/70 Pulse Oximetry 100 100 100 01/17/21 10:58 01/17/21 11:00 01/17/21 11:30 Temperature 97.6 F Pulse Rate 86 86 82 Respiratory Rate 16 Blood Pressure 96/62 96/62 92/63 Pulse Oximetry 100 100 100 01/17/21 12:00 01/17/21 12:20 01/17/21 12:30 Temperature Pulse Rate 81 84 81 Respiratory Rate 14 Blood Pressure 88/53 L 92/63 90/61 Pulse Oximetry 99 100 100 01/17/21 13:00 01/17/21 13:07 01/17/21 13:15 Temperature Pulse Rate 79 80 79 Respiratory Rate 16 16 14 Blood Pressure 84/57 L 83/55 L 86/58 L Pulse Oximetry 100 100 100 01/17/21 13:30 01/17/21 13:35 01/17/21 13:45 Temperature Pulse Rate 82 79 78 Respiratory Rate 22 19 16 Blood Pressure 90/51 L 90/56 L 89/59 L Pulse Oximetry 99 100 100 01/17/21 14:00 01/17/21 14:15 01/17/21 14:30 Temperature Pulse Rate 78 78 72 Respiratory Rate 16 14 14 Blood Pressure 87/59 L 86/58 L 73/52 L Pulse Oximetry 100 100 100 01/17/21 14:36 01/17/21 14:45 01/17/21 15:00 Temperature Pulse Rate 70 80 78 Respiratory Rate 21 19 16 Blood Pressure 74/51 L 87/58 L 84/57 L Pulse Oximetry 100 100 100 01/17/21 15:30 01/17/21 16:33 01/17/21 17:02 Temperature Pulse Rate 80 77 Respiratory Rate 16 Blood Pressure 87/66 L 81/55 L Pulse Oximetry 100 Oxygen Delivery Method Room Air Narrative Exam Narrative: Ill-appearing emaciated cachectic male lying in bed somewhat agitated it and minimally cooperative HEENT: Severe bitemporal wasting, pale, oropharynx reveals dry mucous membranes, neck is supple without adenopathy, no thyromegaly Lungs: Decreased breath sounds but clear to auscultation Cardiac exam: Regular rate and rhythm normal S1-S2 Abdomen: Scaphoid soft and nontender, no hepatosplenomegaly noted Extremities: No edema Neuro exam: Patient is awake and answers questions appropriately, he is minimally cooperative with exam, he is able to move all extremities Psychiatric exam: Patient is delusional, paranoid, expresses paranoid delusions that the FBI is monitoring him. He responds appropriately then will express paranoid delusions. Objective Labs Result Diagrams: 01/17/21 11:18 01/17/21 11:18 Labs: Laboratory Results - last 24 hr 01/17/21 01/17/21 01/17/21 11:10 11:18 11:18 WBC 3.6 L RBC 3.33 L Hgb 11.6 L Hct 33.6 L MCV 101.0 H MCH 34.9 H MCHC 34.6 RDW 13.9 Plt Count 154 Neut % (Auto) 50.5 Lymph % (Auto) 36.2 [place] % (Auto) 11.3 Eos % (Auto) 1.0 L Baso % (Auto) 1.0 Neut # (Auto) 1800 Lymph # (Auto) 1300 [place] # (Auto) 400 Eos # (Auto) 0 Baso # (Auto) 0 PT 13.6 H INR 1.2 APTT 31 Sodium Potassium Chloride Carbon Dioxide BUN Creatinine Estimated GFR BUN/Creatinine Ratio Glucose Lactate Calcium Phosphorus Total Bilirubin AST ALT Alkaline Phosphatase Total Protein Albumin Globulin Albumin/Globulin Ratio Lipase SARS-CoV-2 (PCR) Negative 01/17/21 01/17/21 01/17/21 11:18 11:18 11:18 WBC RBC Hgb Hct MCV MCH MCHC RDW Plt Count Neut % (Auto) Lymph % (Auto) [place] % (Auto) Eos % (Auto) Baso % (Auto) Neut # (Auto) Lymph # (Auto) [place] # (Auto) Eos # (Auto) Baso # (Auto) PT INR APTT Sodium 128 L Potassium 2.2 L* Chloride 80 L Carbon Dioxide 39 H BUN 27 H Creatinine 1.10 Estimated GFR > 60.0 BUN/Creatinine Ratio 24.5 H Glucose 104 Lactate 1.0 Calcium 8.3 L Phosphorus 3.3 Total Bilirubin 0.8 AST 41 ALT 15 Alkaline Phosphatase 99 Total Protein 6.0 L Albumin 2.9 L Globulin 3.1 Albumin/Globulin Ratio 0.9 L Lipase 466 H SARS-CoV-2 (PCR) Assessment & Plan Assessment and plan (1) Paranoid delusion: Status: Acute Assessment & Plan narrative: Impression 1. 60-year-old male admitted to the hospital with severe necrotizing pancreatitis -Patient presents with severe weight loss, wbc 3.0, nausea, and abdominal pain -CT scan confirms: emphesema, nectrotizing pancreatitis, with 2 small loculated peripancreatic fluid collections likely representing acute necrotic collections. There is mild pancreatic duct dilation, but no bilary ductal dilation, small gallstones in the gall bladder fundus identified -lipase elevated at 466 -patient hypotensive normal lactate and afebrile -will continue IV hydration, antiemetics, and pain medication -will obtain MRCP tomorrow to rule out significant gallstone disease 2. Severe protein calorie malnutrition -patient is emaciated and cachectic, albumin is 2.9, he has a BMI of 13.5 -patient is at high risk for refeeding syndrome -will place a PICC line, request dietary consultation, and consider initiation of TPN given his severe protein calorie malnutrition -given the patient's significant weight loss he is at high risk for morbidity and mortality -although his pancreatic loculated cysts or small should he require surgical intervention it is unlikely that the patient would survive based on his significant protein calorie malnutrition -suspect hypotension related to hypovolemia from poor oral intake no evidence to suggest severe sepsis at this time 3. Tobacco dependence -patient was counseled to discontinue smoking -will start a nicotine patch this evening 4. Probable schizophrenia versus other psychosis -patient is calm, currently untreated, and intermittently cooperative -consider psychiatric consultation if appropriate 5. Hypokalemia -will replace 6. Hyponatremia -will replace and continue to monitor closely 7. Patient is listed as a full code, his father Tha schumacher is his surrogate decision maker Patient is admitted as an inpatient as he will likely require more than 2 days of therapy Quality VTE Deep Vein Thrombosis/Pulmonary Embolism Present on Admission: No
--- NOTE | 2021-01-17 18:24 | PC.NURSE ---
PT stating your not putting that thing up my arm. Pt refusing PICC line. Report to pts nurse John STUART.
[2021-01-17] MEDS: LACTATED RINGERS 1,000 ML 150 ML IV (18:27)
--- NOTE | 2021-01-17 18:29 | DI.MRI.S_ITS ---
PROCEDURE: MR ABDOMEN WO CON INDICATIONS: necrotizing pancreatitis, r/o biliary disease TECHNIQUE: Coronal HASTE through the abdomen, axial 2-D FLASH in- and [id number], and breath-hold T2 FSE with fat saturation through the biliary system and pancreas. Oblique coronal and axial thin-slice HASTE, radial thick-slab HASTE centered on the extrahepatic bile ducts. COMPARISON: [facility], CT, CT ABDOMEN PELVIS W CON, 01/17/2021, 12:07. FINDINGS: Image quality: There is motion artifact slightly limiting evaluation. Pancreas and biliary system: The gallbladder is distended with a fluid-debris level in the fundus compatible likely representing biliary sludge, versus small confluent stones. No discrete gallstones in the region of the gallbladder neck. Gallbladder wall thickness is within normal limits overall. No intra or extrahepatic biliary ductal dilatation. No discrete filling defects in the common bile duct to suggest choledocholithiasis. There is peripancreatic edema and fluid redemonstrated consistent with acute pancreatitis. Thickening with mild T2 hyperintensity is also demonstrated within the pancreatic head, uncinate process, and proximal body corresponding to the areas of hypoenhancement on prior CT consistent with necrotizing pancreatitis. There is mild dilatation of the pancreatic duct, measuring up to 0.5 cm in the body. No discrete pancreatic mass is visualized in the absence of intravenous contrast. There is a lobulated peripancreatic fluid collection extending anteriorly from the pancreatic body along the inferior margin of the stomach. This measures up to approximately 4.7 cm in anteroposterior extent by 1.3 cm in thickness by 2.9 cm in craniocaudal extent. A loculated peripancreatic fluid collection is also demonstrated within and adjacent to the pancreatic tail, measuring up to approximately 3.6 cm in transverse extent by 1.0 cm in thickness by 3.3 cm in craniocaudal extent. The findings likely represent acute necrotic collections. Other solid organs: Noncontrast evaluation of the liver demonstrates no discrete mass lesions. Spleen is normal in size. No adrenal nodules. Both kidneys are normal in size, without hydronephrosis. Nodes and vessels: No retroperitoneal or mesenteric adenopathy by size criteria. Aorta and inferior vena cava are normal in size. Bowel and peritoneum: There is a small hiatal hernia. Mild gastric wall thickening is redemonstrated most prominent in the antrum adjacent to the peripancreatic collection. No definite fistulous communication identified. Visualized bowel loops are normal in caliber. There is a small amount of peripancreatic free fluid with extension to the paracolic gutters and anterior pararenal spaces. Lung bases: There are small bilateral pleural effusions with associated compressive atelectasis. Heart size is normal. Bones and soft tissues: No ventral hernias. Bone marrow is of normal overall signal. IMPRESSION: 1. No biliary ductal dilatation or evidence of choledocholithiasis. 2. Small amount of dependent debris within the gallbladder fundus likely representing biliary sludge, versus small confluent gallstones. No gallbladder wall thickening to definitely suggest acute cholecystitis. 3. Findings compatible with acute pancreatitis with likely necrosis redemonstrated. Adjacent peripancreatic fluid collections are compatible with acute necrotic collections. 4. Mild pancreatic duct dilatation without a discrete mass visualized in the absence of intravenous contrast. Findings are likely related to pancreatitis but a follow-up study is recommended following resolution of acute symptoms to exclude an underlying mass if clinically indicated. 5. Small bilateral pleural effusions with associated compressive atelectasis. Dictated by: Alejandro Yanes M.D. on 01/18/2021 at 13:22 Approved by: Alejandro Yanes M.D. on 01/18/2021 at 13:38
--- NOTE | 2021-01-17 18:52 | PC.NURSE ---
1700 Pt admitted per stretcher from ED with IV NS and KCL in progress - one to each AC IV. Pt appears malnourished, WT 42.7KG. Stage 1 decub noted to coccyx area, pt states that it is healing. Allevyn dressing applied. Picc RN here to insert line, pt refused.
[2021-01-17] MEDS: LACTATED RINGERS 1,000 ML 500 ML IV (19:29)
[2021-01-17] MEDS: NOREPINEPHRINE 4 MG in DEXTROSE 5% IN WATER 250 ML 30.48 ML IV (20:06)
[2021-01-17] MEDS: PIPERACILLIN-TAZO 3.375 GM/50 ML FROZ.PIGGY IV (20:16)
--- NOTE | 2021-01-17 20:34 | PM.HP.1 ---
History of Present Illness History of Present Illness Date Patient Seen: 01/17/21 Time Patient Seen: 20:52 Chief complaint: FTT Narrative: 60-year-old man with psychosis alcoholism severe malnutrition admitted to the hospital for acute pancreatitis. Difficult historian secondary to paranoid delusions. He has epigastric pain with nausea says unable to eat for at least a month. At admission afebrile, blood pressure 80s to 90s/60, heart rate 80's, resp 20. WBC 4, hematocrit 34, sodium 128, potassium 2.2 creatinine 1.1, BUN 27 lactate 1.0 normal LFTs, albumin 2.9 total protein 6.[address] abdomen pelvis demonstrates acute pancreatitis with multiple peripancreatic fluid collections of approximately 2 cm each with suspected necrosis no gas bubbles seen. Since admission he has received IV fluid resuscitation, Zosyn, NPO Patient History Medical History Psychosis Family & Social History Social History: household members family Prior Living Arrangements House Safety & Behavioral: Feels Safe in Current Yes Environment Been Physically Hurt or No Threatened By a Person Suicidal Ideation Description None Suicide Plan Description No Plan Tobacco & Substance use: Tobacco type cigarettes Smoking Status Current every day smoker alcohol intake never alcohol intake frequency holiday/special occasion Substance Use Type marijuana Meds Home Medications and Allergies Home Medications Medication Instructions Recorded Confirmed Type No Known Home Medications 01/17/21 01/17/21 History Allergies Allergy/AdvReac Type Severity Reaction Status Date / Time No Known Drug Allergies Allergy Verified 01/17/21 11:02 Review of Systems Review of Systems ROS: Yes unobtainable due to mental condition Exam Vital Signs (past 8 hours): - 01/17/21 13:00 01/17/21 13:07 01/17/21 13:15 Temperature Pulse Rate 79 80 79 Respiratory Rate 16 16 14 Blood Pressure 84/57 L 83/55 L 86/58 L Pulse Oximetry 100 100 100 01/17/21 13:30 01/17/21 13:35 01/17/21 13:45 Temperature Pulse Rate 82 79 78 Respiratory Rate 22 19 16 Blood Pressure 90/51 L 90/56 L 89/59 L Pulse Oximetry 99 100 100 01/17/21 14:00 01/17/21 14:15 01/17/21 14:30 Temperature Pulse Rate 78 78 72 Respiratory Rate 16 14 14 Blood Pressure 87/59 L 86/58 L 73/52 L Pulse Oximetry 100 100 100 01/17/21 14:36 01/17/21 14:45 01/17/21 15:00 Temperature Pulse Rate 70 80 78 Respiratory Rate 21 19 16 Blood Pressure 74/51 L 87/58 L 84/57 L Pulse Oximetry 100 100 100 01/17/21 15:30 01/17/21 16:00 01/17/21 16:20 Temperature 97.9 F Pulse Rate 80 80 80 Respiratory Rate 16 30 H 16 Blood Pressure 81/50 L Pulse Oximetry 100 100 100 01/17/21 16:33 01/17/21 16:47 01/17/21 16:48 Temperature Pulse Rate 63 Respiratory Rate Blood Pressure 87/66 L 174/79 H Pulse Oximetry 61 L 63 L 01/17/21 17:02 01/17/21 18:15 01/17/21 19:00 Temperature 97.1 F L Pulse Rate 77 78 80 Respiratory Rate 13 16 Blood Pressure 81/55 L 88/61 L 71/50 L Pulse Oximetry 100 100 01/17/21 19:07 01/17/21 19:11 01/17/21 19:30 Temperature Pulse Rate 79 79 80 Respiratory Rate 14 17 15 Blood Pressure 71/49 L Pulse Oximetry 100 100 100 01/17/21 19:32 01/17/21 19:50 01/17/21 20:00 Temperature Pulse Rate 80 82 79 Respiratory Rate 14 15 20 Blood Pressure 66/45 L 88/59 L 89/59 L Pulse Oximetry 100 99 100 Oxygen Delivery Method Room Air Oxygen Flow Rate 0 Narrative Exam Narrative: GENERAL-cachectic elderly male appears older than age, no acute distress HEENT-no scleral icterus, hearing intact NECK-no JVD, trachea midline CVS- regular rate, no peripheral edema RESP-unlabored respiratory effort, no audible wheezing GI-mild tenderness epigastric region no peritonitis MSK-no cyanosis or clubbing, extremities without deformity SKIN-warm, dry NEURO-alert no focal deficits PYSCH-paranoid delusions Objective Labs Result Diagrams: 01/17/21 11:18 01/17/21 11:18 Labs: Laboratory Results - last 24 hr 01/17/21 01/17/21 01/17/21 11:10 11:18 11:18 WBC 3.6 L RBC 3.33 L Hgb 11.6 L Hct 33.6 L MCV 101.0 H MCH 34.9 H MCHC 34.6 RDW 13.9 Plt Count 154 Neut % (Auto) 50.5 Lymph % (Auto) 36.2 [place] % (Auto) 11.3 Eos % (Auto) 1.0 L Baso % (Auto) 1.0 Neut # (Auto) 1800 Lymph # (Auto) 1300 [place] # (Auto) 400 Eos # (Auto) 0 Baso # (Auto) 0 PT 13.6 H INR 1.2 APTT 31 Sodium Potassium Chloride Carbon Dioxide BUN Creatinine Estimated GFR BUN/Creatinine Ratio Glucose Lactate Calcium Phosphorus Total Bilirubin AST ALT Alkaline Phosphatase Total Protein Albumin Globulin Albumin/Globulin Ratio Lipase Nasal Screen MRSA (PCR) SARS-CoV-2 (PCR) Negative 01/17/21 01/17/21 01/17/21 11:18 11:18 11:18 WBC RBC Hgb Hct MCV MCH MCHC RDW Plt Count Neut % (Auto) Lymph % (Auto) [place] % (Auto) Eos % (Auto) Baso % (Auto) Neut # (Auto) Lymph # (Auto) [place] # (Auto) Eos # (Auto) Baso # (Auto) PT INR APTT Sodium 128 L Potassium 2.2 L* Chloride 80 L Carbon Dioxide 39 H BUN 27 H Creatinine 1.10 Estimated GFR > 60.0 BUN/Creatinine Ratio 24.5 H Glucose 104 Lactate 1.0 Calcium 8.3 L Phosphorus 3.3 Total Bilirubin 0.8 AST 41 ALT 15 Alkaline Phosphatase 99 Total Protein 6.0 L Albumin 2.9 L Globulin 3.1 Albumin/Globulin Ratio 0.9 L Lipase 466 H Nasal Screen MRSA (PCR) SARS-CoV-2 (PCR) 01/17/21 17:00 WBC RBC Hgb Hct MCV MCH MCHC RDW Plt Count Neut % (Auto) Lymph % (Auto) [place] % (Auto) Eos % (Auto) Baso % (Auto) Neut # (Auto) Lymph # (Auto) [place] # (Auto) Eos # (Auto) Baso # (Auto) PT INR APTT Sodium Potassium Chloride Carbon Dioxide BUN Creatinine Estimated GFR BUN/Creatinine Ratio Glucose Lactate Calcium Phosphorus Total Bilirubin AST ALT Alkaline Phosphatase Total Protein Albumin Globulin Albumin/Globulin Ratio Lipase Nasal Screen MRSA (PCR) Negative for mrsa SARS-CoV-2 (PCR) Assessment & Plan Assessment and plan (1) Necrotizing pancreatitis: Problem details: 60-year-old man with psychosis alcoholism severe malnutrition admitted for acute pancreatitis. CT abdomen pelvis reviewed, demonstrates multiple peripancreatic fluid collections with a suspected necrosis and cholelithiasis. Emphysema within the fluid collections was not observed suggesting acute necrotic collections without infection at this time. Etiology of pancreatitis is alcoholic vs gallstone. Acute surgical pancreatic debridement not indicated. -Continue fluid resuscitation to maintain organ perfusion and oxygenation -Resume nutrition when able. Caution for refeeding syndrome. -No need for drainage of the small peripancreatic fluid collections at this time -Would not recommend cholecystectomy at this point for possibility of gallstone pancreatitis given his severe malnutrition and psychosis Status: Acute Quality VTE Deep Vein Thrombosis/Pulmonary Embolism Present on Admission: No
[2021-01-17 21:12] LABS: UR Morphine/Opiate cutoff 300 Negative (Negative); Ur Creatinine Normal (Normal); Ur Specific Gravity Normal (Normal); Urine Amphetamines Negative (Negative); Urine Cocaine Negative (Negative); Urine Tetrahydrocannabinol Positive (Negative); Urine pH Normal (Normal)
[2021-01-17 21:13] LABS: Urine Barbiturates Negative (Negative); Urine Benzodiazepines Negative (Negative); Urine MDMA Negative (Negative); Urine Methadone Negative (Negative); Urine Methamphetamines Negative (Negative); Urine Oxycodone Negative (Negative); Urine Phencyclidine Negative (Negative); Urine Tricyclic Antidepressant Negative (Negative)
[2021-01-17] MEDS: FAMOTIDINE 20 MG/50 ML PIGGYBACK 200 MG IV (21:17)
--- NOTE | 2021-01-17 22:46 | PC.NURSE ---
End of shift note - IV LR maintained @ 150hr, 1st bag of KCL infused, waiting for lab draw to begin second bag. Norepinephrine in fusing @ 6mcg/min, SBP 96. Zosyn infusing @ 12.5ml/hr.
[2021-01-17] MEDS: HALOPERIDOL 5 MG/ML VIAL (23:15)
[2021-01-17] MEDS: HALOPERIDOL 5 MG/ML VIAL 2 MG IV (23:16)
[2021-01-18] VITALS (29 sets, daily range): BP systolic 69–116; BP diastolic 42–76; PULSE 67–105; RESP 12–26; TEMP 36.1–36.7; O2SAT 91–100
[2021-01-18 00:37] LABS: Add Manual Diff / Slide Review NO; Basophils Absolute Auto 0 /uL (0-100); Basophils Percent Auto 0.9 % (0-2); Eosinophils Absolute Auto 100 /uL (0-450); Eosinophils Percent Auto 1.1 % (2-4); Hematocrit 30.3 % (41-53); Hemoglobin 10.4 g/dL (13.5-17.5); Lymphocytes Absolute Auto 1400 /uL (1100-4500); Lymphocytes Percent Auto 28.6 % (25-40); Mean Corpuscular HGB Conc 34.2 % (30-36); Mean Corpuscular Hemoglobin 34.8 PG (26-34); Mean Corpuscular Volume 101.5 fL (80-100); Monocytes Absolute Auto 600 /uL (0-900); Monocytes Percent Auto 11.3 % (3-14); Neutrophils Absolute Auto 2900 /uL (1500-7000); Neutrophils Percent Auto 58.1 % (50-75); Platelet Count 160 X10^3/uL (150-400); Red Blood Cell Count 2.99 X10^6/uL (4.5-5.9)
[2021-01-18 00:54] LABS: Alanine Aminotransferase 13 IU/L (<50); Albumin 2.2 g/dL (3.5-5.0); Albumin Globulin Ratio 0.8 (1.0-2.8); Alkaline Phosphatase 75 U/L (38-126); Aspartate Aminotransferase 42 IU/L (17-59); BUN Creatinine Ratio 24.4 (6-22); Bilirubin Total 0.8 mg/dL (0.2-1.3); Blood Urea Nitrogen 20 mg/dL (9-20); Calcium 7.7 mg/dL (8.4-10.2); Carbon Dioxide 29 mmol/L (22-32); Chloride 95 mmol/L (98-107); Creatine Kinase 35 U/L (55-170); Estimated Glomerular Filt Rate > 60.0 mL/min (>60); Globulin 2.8 g/dL (1.7-4.1); Glucose 117 mg/dL (80-110); HEMOLYSIS < 15 (0-50); Lactate (Lactic Acid) 0.8 mmol/L (0.7-2.1); Magnesium 1.6 mg/dL (1.6-2.3); Potassium 3.1 mmol/L (3.4-5.1); Sodium 131 mmol/L (137-145)
[2021-01-18 01:00] LABS: Prealbumin 7.6 mg/dL (17.6-36.0)
[2021-01-18 01:06] LABS: NT-proBNP (BNP-Adult 18+) 1290 pg/mL (<125); Troponin I 0.106 ng/mL (0.01-0.034)
[2021-01-18] MEDS: POTASSIUM CHLORIDE 40 MEQ in SODIUM CHLORIDE 0.9% 500 ML 130 ML IV (01:10)
--- NOTE | 2021-01-18 01:17 | PC.NURSE ---
Addendum entered by Moni Smith R.N. 01/18/21 02:37: 0230- Patient pulled out his IV on the right antecube. IV infusions transferred to the left antecube. No second IV restarted as patient was not cooperative. Will monitor. Original Note: 2330- Patient very agitated and verbally combative with staff. John STUART medicated with Haldol per order. Unable to obtain labs due to agitation. Second KRider held until labs can be drawn. 0020- Patient resting quietly. Approached about drawing labs and patient has agreed. Labs drawn per order. Will monitor.
--- NOTE | 2021-01-18 02:06 | DI.ECHO.S_ITS ---
[facility]---------+ [facility] +---------+ : : [address] : [place] : : : : [id number] : : : : Phone: [phone]+ Echocardiogram Report + + :Name: CASA BAIRES Study Date: 01/18/2021 Height: 69.5 in: :[facility] ReadingLocation: Weight: 94 lb : : Gender: Male BSA: 1.5 m2 : :: 1960 Age: 60 yrs BP: 89/63 mmHg : :Reason For Study: Cardiomyopathy : :Ordering Physician: TOSHA, : :CRISTIAN Performed By: Carlos Robertson : :Referring: CRISTIAN GIVENS : + + Interpretation Summary Normal both left and right ventricle size and function. The ejection fraction is 60-65%. Normal both atria. No valvular abnormality. Procedure: A two-dimensional transthoracic echocardiogram with color flow and Doppler was performed. The study quality was technically adequate. Comparison is made with the echocardiogram of 09/29/2017. The patient was in sinus rhythm with heart rates between 80-91 bpm during the exam. Left Ventricle: The left ventricle is normal in size and wall thickness. The ejection fraction is estimated to be 60-65%. There are no focal wall motion abnormalities. Diastolic parameters suggest probable normal left ventricular diastolic function and normal filling pressures. Right Ventricle: The right ventricle is normal in size and function. Atria: Both atria are normal in size. Mitral Valve: The mitral valve is normal in structure and function. There is trace mitral regurgitation. Aortic Valve: The aortic valve is normal in structure and function. No aortic regurgitation is present. Tricuspid Valve: The tricuspid valve is normal in structure and function. There is mild tricuspid regurgitation. Right ventricular systolic pressure is estimated to be 28 mmHg plus the clinically estimated CVP which cannot be estimated on this exam. Pulmonic Valve: The pulmonic valve is not well seen, but is grossly normal. There is no pulmonic valvular regurgitation. Great Vessels: The aortic root is normal size. The dimensions of the ascending aorta are normal. The inferior vena cava was not visualized. Pericardium/ Pleura There is no pericardial effusion. There is no pleural effusion. MMode/2D Measurements & Calculations LVIDd: 3.5 cm LVOT diam: 2.2 cm LVIDs: 2.2 cm Ao root diam: 3.4 cm FS: 36.4 % asc Aorta Diam: 2.8 cm IVSd: 0.92 cm LVPWd: 0.77 cm LV kohli. diameter/BSA (cm/m^2): 2.3 LV sys. diameter/BSA (cm/m^2): 1.5 LA A2 area: 12.6 cm2 RA area: 12.5 cm2 LA A4 area: 12.2 cm2 LA length (vol): 3.6 cm LA vol: 36.4 ml LA vol index: 24.1 ml/m2 RVD1 (basal): 2.6 cm TAPSE: 2.0 cm Doppler Measurements & Calculations Ao V2 max: 98.5 cm/sec LVOT Max Luis: 95.8 cm/sec Ao V2 mean: 73.8 cm/sec LV V1 max P.7 mmHg Ao max P.9 mmHg LV V1 VTI: 18.7 cm Ao mean P.3 mmHg JESSICA(I,D): 3.6 cm2 Ao V2 VTI: 19.4 cm JESSICA(V,D): 3.7 cm2 sev ratio: 0.96 JESSICA indexed to BSA (cm^2/m^2): 2.4 MV E max luis: 87.4 cm/sec TR max luis: 263.5 cm/sec MV A max luis: 48.0 cm/sec TR max P.8 mmHg MV E/A: 1.8 PA V2 max: 72.8 cm/sec Med Peak E' Luis: 8.1 cm/sec PA V2 mean: 54.7 cm/sec E/E' med: 10.9 PA mean P.3 mmHg Lat Peak E' Luis: 9.0 cm/sec PA pr(Accel): 43.0 mmHg E/E' lat: 9.7 E/e' average: 10.3 MV dec time: 0.13 sec SV(LVOT): 70.4 ml Electronically signed by: Celeste Sahni on Reading Physician:01/18/2021 12:31 PM
--- NOTE | 2021-01-18 02:11 | PM.EVENT ---
Event Note Date Patient Seen: 01/17/21 Time Patient Seen: 19:15 Event Note: Was called by the nurse to the re-evaluate the patient for hypotension with a blood pressure of 66/44: The patient was admitted today for acute necrotizing pancreatitis with associated hypokalemia, hyponatremia. Nine delusions and psychosis. The patient is severely malnourished with a BMI of 13.5. The patient has been uncooperative to care and has refused a PICC line. The patient makes statements of paranoia that he will notify the [employer]. -saline boluses ordered 500 cc with no improvement in blood pressure. Pressure dropped to 64 systolic. The patient has received 2500 cc of IV fluid since admission. -ordered norepinephrine to maintain a mean arterial pressure greater than 65. -increase IV fluid to 200 cc/hour. -the patient is having potassium repleted as receiving 2nd 40 mEq rider which is 2 to be done at 10:00 a.m. at which time we will repeat labs including CMP, CBC, magnesium, cardiac panel and lactate. Re-evaluation #1 at 2300. 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 He is refusing blood draw in states his wish to leave now. The patient is oriented to person only and continues to make paranoid statements and delusional comments. -ordered Haldol 2 mg IV x1 -continue norepinephrine infusion. Re-evaluation #2 Patient now resting quietly, lab called for blood draw. -updated labs find no indication of sepsis a white count of 5.0 with no shift, lactic acid is 0.8. -chemistries: Sodium is 131, potassium 3.1 chloride 9.5. Will administer additional KCl 40 mEq. IV fluid changed to normal saline. -calcium is decreased from 8.3 to 7.7. Will hold off on calcium repletion for now due to acute necrotizing pancreatitis, will recheck calcium with morning labs. -total CK is 35 however the patient has severe protein malnutrition, troponin is elevated 0.106 and proBNP is 1290. The patient denies complaints of chest pain code is questionable if you would disclose such information. Order repeat 12 lead EKG and will recheck troponin with morning labs. -lipase is 466. Critical care time: 45 minutes.
[2021-01-18] MEDS: PIPERACILLIN-TAZO 3.375 GM/50 ML FROZ.PIGGY IV (04:07)
[2021-01-18] MEDS: HALOPERIDOL 5 MG/ML VIAL 1 MG IV ×2 (04:34→08:58)
[2021-01-18 05:19] LABS: Alanine Aminotransferase 15 IU/L (<50); Albumin 2.6 g/dL (3.5-5.0); Albumin Globulin Ratio 0.9 (1.0-2.8); Alkaline Phosphatase 87 U/L (38-126); Aspartate Aminotransferase 39 IU/L (17-59); BUN Creatinine Ratio 20.5 (6-22); Bilirubin Total 0.9 mg/dL (0.2-1.3); Blood Urea Nitrogen 18 mg/dL (9-20); Calcium 8.1 mg/dL (8.4-10.2); Carbon Dioxide 29 mmol/L (22-32); Chloride 97 mmol/L (98-107); Estimated Glomerular Filt Rate > 60.0 mL/min (>60); Globulin 2.9 g/dL (1.7-4.1); Glucose 118 mg/dL (80-110); HEMOLYSIS < 15 (0-50); Magnesium 1.5 mg/dL (1.6-2.3); Potassium 3.9 mmol/L (3.4-5.1); Sodium 133 mmol/L (137-145); Total Protein 5.5 g/dL (6.3-8.2)
[2021-01-18 05:30] LABS: Troponin I 0.103 ng/mL (0.01-0.034)
[2021-01-18 05:42] LABS: Add Manual Diff / Slide Review NO; Basophils Absolute Auto 100 /uL (0-100); Basophils Percent Auto 1.1 % (0-2); Eosinophils Absolute Auto 100 /uL (0-450); Eosinophils Percent Auto 1.2 % (2-4); Hematocrit 32.3 % (41-53); Hemoglobin 11.2 g/dL (13.5-17.5); Lymphocytes Absolute Auto 1900 /uL (1100-4500); Lymphocytes Percent Auto 34.5 % (25-40); Mean Corpuscular HGB Conc 34.6 % (30-36); Mean Corpuscular Hemoglobin 35.8 PG (26-34); Mean Corpuscular Volume 103.6 fL (80-100); Monocytes Absolute Auto 500 /uL (0-900); Monocytes Percent Auto 9.1 % (3-14); Neutrophils Absolute Auto 3000 /uL (1500-7000); Neutrophils Percent Auto 54.1 % (50-75); Platelet Count 167 X10^3/uL (150-400); Red Blood Cell Count 3.12 X10^6/uL (4.5-5.9); White Blood Cell Count 5.5 X10^3/uL (4.5-11.0)
[2021-01-18] MEDS: SODIUM CHLORIDE 0.9% 1,000 ML 100 ML IV ×2 (05:43→17:08)
[2021-01-18 05:55] LABS: Thyroid Stimulating Hormone 2.04 uIU/mL (0.47-4.68)
[2021-01-18] MEDS: MORPHINE 2 MG/ML INJ IV (08:56)
[2021-01-18] MEDS: ENOXAPARIN 40 MG/0.4 ML SYRINGE SUBCUT (08:57)
[2021-01-18] MEDS: NICOTINE 14 PATCH 14 MG TOP (09:03)
--- NOTE | 2021-01-18 11:08 | P.PN_ITS ---
Subjective Subjective Date Patient Seen: 01/18/21 Time Patient Seen: 11:08 Interval history: The patient is a 60-year-old male with an on diagnosis psychiatric disorder likely schizophrenia who presents to the hospital for nausea vomiting abdominal pain and significant weight loss. He was admitted for acute necrotizing pancreatitis. Overnight he was hypotensive, given fluids but started on Levophed. Now weaned off of levophed. Given no fevers, leukocytosis today, antibiotics were stopped today. He is pending an MRCP today. He does not complain of abdominal pain or nausea at this time. Overnight he was given a dose of Haldol, this morning he was calm and appropriate but seemed very much more guarded. He was due for a PICC line for possible TPN, however given improvement in his pain will trial clears after his MRCP. Exam Vital Signs (past 8 hours): - 01/18/21 04:00 01/18/21 05:00 01/18/21 06:00 Temperature Pulse Rate 78 86 68 Respiratory Rate 26 H 14 12 Blood Pressure 85/53 L 114/68 Pulse Oximetry 99 100 97 01/18/21 06:01 01/18/21 06:03 01/18/21 07:00 Temperature Pulse Rate 73 67 71 Respiratory Rate 17 13 15 Blood Pressure 69/42 L 79/53 L 88/52 L Pulse Oximetry 97 100 98 01/18/21 08:00 01/18/21 09:00 01/18/21 10:00 Temperature 98.0 F Pulse Rate 90 17 L 82 Respiratory Rate 13 17 13 Blood Pressure 91/63 89/63 L 81/51 L Pulse Oximetry 100 100 100 Oxygen Delivery Method Room Air Oxygen Flow Rate 0 Narrative Exam Narrative: Gen: Ill-appearing emaciated cachectic male lying in bed somewhat agitated it and minimally cooperative HEENT: Severe bitemporal wasting, pale, oropharynx reveals dry mucous membranes, neck is supple without adenopathy, no thyromegaly Lungs: Decreased breath sounds but clear to auscultation bilaterally Cardiac exam: Regular rate and rhythm normal S1-S2 Abdomen: Scaphoid soft and nontender, no hepatosplenomegaly noted Extremities: No edema Neuro exam: Patient is awake and answers questions appropriately, he is minimally cooperative with exam, he is able to move all extremities Psychiatric exam: flat affect, guarded, limited verbal responses. Objective Labs Result Diagrams: 01/18/21 04:55 01/18/21 04:55 Labs: Laboratory Results - last 24 hr 01/17/21 01/17/21 01/17/21 11:10 11:18 11:18 WBC 3.6 L RBC 3.33 L Hgb 11.6 L Hct 33.6 L MCV 101.0 H MCH 34.9 H MCHC 34.6 RDW 13.9 Plt Count 154 Neut % (Auto) 50.5 Lymph % (Auto) 36.2 [place] % (Auto) 11.3 Eos % (Auto) 1.0 L Baso % (Auto) 1.0 Neut # (Auto) 1800 Lymph # (Auto) 1300 [place] # (Auto) 400 Eos # (Auto) 0 Baso # (Auto) 0 PT 13.6 H INR 1.2 APTT 31 Sodium Potassium Chloride Carbon Dioxide BUN Creatinine Estimated GFR BUN/Creatinine Ratio Glucose Lactate Calcium Phosphorus Magnesium Total Bilirubin AST ALT Alkaline Phosphatase Total Creatine Kinase CK-MB (CK-2) CK-MB (CK-2) Rel Index Troponin I NT-Pro-B Natriuret Pep Total Protein Albumin Globulin Albumin/Globulin Ratio Prealbumin Lipase TSH Nasal Screen MRSA (PCR) U Opiates 300ng/mL cut Ur Oxycodone Screen Urine Methadone Screen Ur Barbiturates Screen U Tricyclic Antidepress Ur Phencyclidine Scrn Ur Amphetamines Screen U Methamphetamines Scrn Ur MDMA Scrn (Ecstasy) U Benzodiazepines Scrn Urine Cocaine Screen U Marijuana (THC) Screen SARS-CoV-2 (PCR) Negative 01/17/21 01/17/21 01/17/21 11:18 11:18 11:18 WBC RBC Hgb Hct MCV MCH MCHC RDW Plt Count Neut % (Auto) Lymph % (Auto) [place] % (Auto) Eos % (Auto) Baso % (Auto) Neut # (Auto) Lymph # (Auto) [place] # (Auto) Eos # (Auto) Baso # (Auto) PT INR APTT Sodium 128 L Potassium 2.2 L* Chloride 80 L Carbon Dioxide 39 H BUN 27 H Creatinine 1.10 Estimated GFR > 60.0 BUN/Creatinine Ratio 24.5 H Glucose 104 Lactate 1.0 Calcium 8.3 L Phosphorus 3.3 Magnesium Total Bilirubin 0.8 AST 41 ALT 15 Alkaline Phosphatase 99 Total Creatine Kinase CK-MB (CK-2) CK-MB (CK-2) Rel Index Troponin I NT-Pro-B Natriuret Pep Total Protein 6.0 L Albumin 2.9 L Globulin 3.1 Albumin/Globulin Ratio 0.9 L Prealbumin Lipase 466 H TSH Nasal Screen MRSA (PCR) U Opiates 300ng/mL cut Ur Oxycodone Screen Urine Methadone Screen Ur Barbiturates Screen U Tricyclic Antidepress Ur Phencyclidine Scrn Ur Amphetamines Screen U Methamphetamines Scrn Ur MDMA Scrn (Ecstasy) U Benzodiazepines Scrn Urine Cocaine Screen U Marijuana (THC) Screen SARS-CoV-2 (PCR) 01/17/21 01/17/21 01/18/21 17:00 20:30 00:20 WBC RBC Hgb Hct MCV MCH MCHC RDW Plt Count Neut % (Auto) Lymph % (Auto) [place] % (Auto) Eos % (Auto) Baso % (Auto) Neut # (Auto) Lymph # (Auto) [place] # (Auto) Eos # (Auto) Baso # (Auto) PT INR APTT Sodium Potassium Chloride Carbon Dioxide BUN Creatinine Estimated GFR BUN/Creatinine Ratio Glucose Lactate Calcium Phosphorus Magnesium Total Bilirubin AST ALT Alkaline Phosphatase Total Creatine Kinase CK-MB (CK-2) CK-MB (CK-2) Rel Index Troponin I NT-Pro-B Natriuret Pep Total Protein Albumin Globulin Albumin/Globulin Ratio Prealbumin 7.6 L Lipase TSH Nasal Screen MRSA (PCR) Negative for mrsa U Opiates 300ng/mL cut Negative Ur Oxycodone Screen Negative Urine Methadone Screen Negative Ur Barbiturates Screen Negative U Tricyclic Antidepress Negative Ur Phencyclidine Scrn Negative Ur Amphetamines Screen Negative U Methamphetamines Scrn Negative Ur MDMA Scrn (Ecstasy) Negative U Benzodiazepines Scrn Negative Urine Cocaine Screen Negative U Marijuana (THC) Screen Positive H SARS-CoV-2 (PCR) 01/18/21 01/18/21 01/18/21 00:20 00:20 00:20 WBC 5.0 RBC 2.99 L Hgb 10.4 L Hct 30.3 L MCV 101.5 H MCH 34.8 H MCHC 34.2 RDW 14.0 Plt Count 160 Neut % (Auto) 58.1 Lymph % (Auto) 28.6 [place] % (Auto) 11.3 Eos % (Auto) 1.1 L Baso % (Auto) 0.9 Neut # (Auto) 2900 Lymph # (Auto) 1400 [place] # (Auto) 600 Eos # (Auto) 100 Baso # (Auto) 0 PT INR APTT Sodium 131 L Potassium 3.1 L Chloride 95 L Carbon Dioxide 29 BUN 20 Creatinine 0.82 Estimated GFR > 60.0 BUN/Creatinine Ratio 24.4 H Glucose 117 H Lactate 0.8 Calcium 7.7 L Phosphorus Magnesium 1.6 Total Bilirubin 0.8 AST 42 ALT 13 Alkaline Phosphatase 75 Total Creatine Kinase 35 L CK-MB (CK-2) TNP CK-MB (CK-2) Rel Index TNP Troponin I 0.106 H NT-Pro-B Natriuret Pep 1290 H Total Protein 5.0 L Albumin 2.2 L Globulin 2.8 Albumin/Globulin Ratio 0.8 L Prealbumin Lipase TSH Nasal Screen MRSA (PCR) U Opiates 300ng/mL cut Ur Oxycodone Screen Urine Methadone Screen Ur Barbiturates Screen U Tricyclic Antidepress Ur Phencyclidine Scrn Ur Amphetamines Screen U Methamphetamines Scrn Ur MDMA Scrn (Ecstasy) U Benzodiazepines Scrn Urine Cocaine Screen U Marijuana (THC) Screen SARS-CoV-2 (PCR) 01/18/21 01/18/21 01/18/21 04:55 04:55 04:55 WBC 5.5 RBC 3.12 L Hgb 11.2 L Hct 32.3 L MCV 103.6 H MCH 35.8 H MCHC 34.6 RDW 14.0 Plt Count 167 Neut % (Auto) 54.1 Lymph % (Auto) 34.5 [place] % (Auto) 9.1 Eos % (Auto) 1.2 L Baso % (Auto) 1.1 Neut # (Auto) 3000 Lymph # (Auto) 1900 [place] # (Auto) 500 Eos # (Auto) 100 Baso # (Auto) 100 PT INR APTT Sodium 133 L Potassium 3.9 Chloride 97 L Carbon Dioxide 29 BUN 18 Creatinine 0.88 Estimated GFR > 60.0 BUN/Creatinine Ratio 20.5 Glucose 118 H Lactate Calcium 8.1 L Phosphorus Magnesium 1.5 L Total Bilirubin 0.9 AST 39 ALT 15 Alkaline Phosphatase 87 Total Creatine Kinase CK-MB (CK-2) CK-MB (CK-2) Rel Index Troponin I NT-Pro-B Natriuret Pep Total Protein 5.5 L Albumin 2.6 L Globulin 2.9 Albumin/Globulin Ratio 0.9 L Prealbumin Lipase TSH 2.04 Nasal Screen MRSA (PCR) U Opiates 300ng/mL cut Ur Oxycodone Screen Urine Methadone Screen Ur Barbiturates Screen U Tricyclic Antidepress Ur Phencyclidine Scrn Ur Amphetamines Screen U Methamphetamines Scrn Ur MDMA Scrn (Ecstasy) U Benzodiazepines Scrn Urine Cocaine Screen U Marijuana (THC) Screen SARS-CoV-2 (PCR) 01/18/21 04:55 WBC RBC Hgb Hct MCV MCH MCHC RDW Plt Count Neut % (Auto) Lymph % (Auto) [place] % (Auto) Eos % (Auto) Baso % (Auto) Neut # (Auto) Lymph # (Auto) [place] # (Auto) Eos # (Auto) Baso # (Auto) PT INR APTT Sodium Potassium Chloride Carbon Dioxide BUN Creatinine Estimated GFR BUN/Creatinine Ratio Glucose Lactate Calcium Phosphorus Magnesium Total Bilirubin AST ALT Alkaline Phosphatase Total Creatine Kinase CK-MB (CK-2) CK-MB (CK-2) Rel Index Troponin I 0.103 H NT-Pro-B Natriuret Pep Total Protein Albumin Globulin Albumin/Globulin Ratio Prealbumin Lipase TSH Nasal Screen MRSA (PCR) U Opiates 300ng/mL cut Ur Oxycodone Screen Urine Methadone Screen Ur Barbiturates Screen U Tricyclic Antidepress Ur Phencyclidine Scrn Ur Amphetamines Screen U Methamphetamines Scrn Ur MDMA Scrn (Ecstasy) U Benzodiazepines Scrn Urine Cocaine Screen U Marijuana (THC) Screen SARS-CoV-2 (PCR) [facility] Medical History Psychosis Social History household members: family Smoking Status: Current every day smoker alcohol intake: never Assessment & Plan Assessment & Plan narrative: 60-year-old male admitted to the hospital with severe necrotizing pancreatitis, complicated by paranoid delusions likely from underlying schizophrenia. 1. Acute necrotizing pancreatitis, present on admission. -Patient presents with severe weight loss, wbc 3.0, nausea, and abdominal pain -CT scan confirms: emphesema, nectrotizing pancreatitis, with 2 small loculated peripancreatic fluid collections likely representing acute necrotic collections. There is mild pancreatic duct dilation, but no bilary ductal dilation, small gallstones in the gall bladder fundus identified -lipase elevated at 466 on admission. -patient hypotensive but normal lactate and afebrile -will continue IV hydration today, antiemetics, and pain medication -MRCP today. Appreciate surgical consultation by Dr. Lindsay, no -improved today, will start slow refeeding today with some clears and monitor. If unable to tolerate oral intake may need to start TPN. 2. Severe protein calorie malnutrition -patient is emaciated and cachectic, albumin is 2.9, he has a BMI of 13.5 -patient is at high risk for refeeding syndrome -PICC line held given clinical improvement today. Will start clears, appreciate dietary assistance with high risk for refeeding. -given the patient's significant weight loss he is at high risk for morbidity and mortality -TTE ordered, consideration for malnutrition leading to cardiomyopathy. 3. Tobacco dependence -patient was counseled to discontinue smoking -will start a nicotine patch this evening 4. Probable schizophrenia versus other psychosis -patient is calm currently, intermittently agitated, expressed delusions on admission. Unknown chronicity. -consider psychiatric consultation, however patient more reserved today and unlikely to cooperate further at this time if consultation performed. 5. Hypokalemia, acute, improved -continue to monitor. patient required 120 meq to improve potassium to normal levels. 6. Hyponatremia, improved. -will replace and continue to monitor closely. 7. Hypovolemic shock, resolved. - patient requiring levophed to maintain adequate perfusion. Likely in setting of hypovolemia and severe malnutrition, active inflammation from necrotizing pancreatitis. - improved with IV Fluids and was on levophed, now weaned off this AM. 8. Elevated troponin, improved. - suspect related to demand in setting of hypovolemic shock. Peaked with initial lab value at .106 and downtrended. No complaints of chest pain. - TTE pending. I spent 30 minutes providing critical care management this patient. This excludes time spent in performing separately billed procedures. Status: currently ICU, can change to floor care if he remains off of pressor support. Patient is listed as a full code, his father Tha schumacher is his surrogate decision maker Quality VTE Deep Vein Thrombosis/Pulmonary Embolism Present on Admission: No
[2021-01-18] MEDS: LORazepam 2 MG/ML INJ IV (11:50)
--- NOTE | 2021-01-18 13:42 | PC.NURSE ---
PT INITIALLY UNCOOPERATIVE AND RESISTANT TO ANY CARE OFFERED- HAS TAKEN ONLY ICE CHIPS THIS AM - LUNGS CLEAR AND ROOM AIR 95-98% DENIES ANY SHORTNESS OF BREATH- MIDLINE STARTED BY HANNAH RN, EKG COMPLETED, ECHO DONE WELL- RESULTS PENDING WELL MRI COMPLETED. PT FREQUIRED ADDITIONAL SEDATION PRIOR TO MRI- THE NOREPI HAS BEEN WEANED TO OFF AND DR. ROBISON IS OK WITH A MAP OF 60- IVF NS 100CC/H AND MAGNESIUM RIDER GIVEN WELL COMPLETION OF KCL RIDER
--- NOTE | 2021-01-18 16:36 | DIET.PN ---
Dietary Progress Note Assessment: 60y M admitted c pmhx paranoid schizophrenia for failure to thrive and necrotizing pancreatitis referred to nutrition for severe protein calorie malnutrition c high risk for refeeding syndrome. HT: 177.8cm WT: 42.7kg (-58% in 6mo, severe) UBW: 100kg BMI: 13.5 (severe) Labs: K+ 2.2 L, lipase 466 H, albumin 2.9 L without elevated WBC Pt smokes 10 cigarettes per day with moderate to severe emphysemic changes to lungs, pt has hx of heavy drinking but quit in July when abdominal pain and weight loss began. Per chart review pt has had continuing N/V since July and has lost 130# (-58%, severe) c current BMI 13.5 (severe). Pt has midline placed but refused PICC so TPN not initiated. Hospitalist would like to trial clears with slow diet advancement as tolerated to protect from refeeding syndrome. Pt requested lemon slices from nursing staff, RD including in menu after discussion c hospitalist. MNA:5 malnourished Tim:18 c stage 1 pressure sore on coccyx Nutrition Diagnosis: Severe Acute on Chronic PCM r/t inability to tolerate oral intake aeb 58% unintentional weight loss in 6mo (severe), BMI 13.5 (severe), severe cachexia, pt has had N/V x6mo leading him to quit etoh and unable to tolerate POs. Interventions: 1. Pt is high risk for refeeding syndrome for first 60h after feeding initiated. Watch cardiac fxn, BG, Mg, K+ and Phos carefully for cellular shifts and replete as needed. 2. Calorie Count Recc pt receive 500 kcals/d (12kcal/kg) for first two days spread through three meals to reduce nutrition load and to monitor for signs of refeeding. Cautiously increase to 750kcals on day three if tolerating. RD will curate appropriate menu to support electrolytes, PCM, and pancreatitis including pea and soy proteins as follows. If Clears menu twice/d: ONS Nick, vegetable broth, tea (no sugar), lemon slices once/d: vegetable broth, tea (no sugar), lemon slices If Fulls menu twice/d: Smoothie containing soymilk, Orgain protein powder, banana c vegetable broth, tea (no sugar), lemon slices once/d: vegetable broth, tea (no sugar), lemon slices 3. If initiating TPN in place of PO intake, begin at 15mL/h for first 12h increasing by 5mL q12h as tolerated to temporary goal of 41mL/h (1L bag), hold lipids per pancreatitis until stabilized. Diet Order:Clears- low sugar EER:to be calculated when pt out of refeeding window Monitoring/Evaluations: RD available by phone on weekend, will reconsult Thursday am otherwise.
[2021-01-18] MEDS: FAMOTIDINE 20 MG/50 ML PIGGYBACK 200 MG IV (20:29)
[2021-01-19] VITALS (32 sets, daily range): BP systolic 91–132; BP diastolic 53–90; PULSE 75–121; RESP 11–24; TEMP 36.2–36.7; O2SAT 96–100
[2021-01-19] MEDS: LORazepam 2 MG/ML INJ IV ×2 (01:47→23:19)
[2021-01-19] MEDS: SODIUM CHLORIDE 0.9% 1,000 ML 100 ML IV ×3 (02:51→21:52)
[2021-01-19] MEDS: MORPHINE 2 MG/ML INJ IV (03:49)
[2021-01-19 05:04] LABS: Add Manual Diff / Slide Review NO; Basophils Absolute Auto 0 /uL (0-100); Basophils Percent Auto 1.3 % (0-2); Eosinophils Absolute Auto 100 /uL (0-450); Eosinophils Percent Auto 2.5 % (2-4); Hematocrit 26.2 % (41-53); Lymphocytes Absolute Auto 1000 /uL (1100-4500); Lymphocytes Percent Auto 35.5 % (25-40); Mean Corpuscular HGB Conc 34.4 % (30-36); Mean Corpuscular Hemoglobin 35.3 PG (26-34); Mean Corpuscular Volume 102.5 fL (80-100); Monocytes Absolute Auto 300 /uL (0-900); Monocytes Percent Auto 9.5 % (3-14); Neutrophils Absolute Auto 1400 /uL (1500-7000); Neutrophils Percent Auto 51.2 % (50-75); Platelet Count 142 X10^3/uL (150-400); Red Blood Cell Count 2.56 X10^6/uL (4.5-5.9); Red Cell Distribution Width 14.1 % (11.6-14.8); White Blood Cell Count 2.8 X10^3/uL (4.5-11.0)
[2021-01-19 05:40] LABS: Alanine Aminotransferase 14 IU/L (<50); Albumin 2.1 g/dL (3.5-5.0); Albumin Globulin Ratio 0.8 (1.0-2.8); Alkaline Phosphatase 65 U/L (38-126); Aspartate Aminotransferase 39 IU/L (17-59); BUN Creatinine Ratio 14.7 (6-22); Bilirubin Total 0.5 mg/dL (0.2-1.3); Bilirubin Unconjugated 0.4 mg/dL (0.0-1.1); Blood Urea Nitrogen 11 mg/dL (9-20); Carbon Dioxide 26 mmol/L (22-32); Chloride 101 mmol/L (98-107); Estimated Glomerular Filt Rate > 60.0 mL/min (>60); Globulin 2.7 g/dL (1.7-4.1); Glucose 90 mg/dL (80-110); HEMOLYSIS < 15 (0-50); Magnesium 1.9 mg/dL (1.6-2.3); Phosphorous 1.7 mg/dL (2.3-3.7); Potassium 3.3 mmol/L (3.4-5.1); Sodium 133 mmol/L (137-145); Total Protein 4.8 g/dL (6.3-8.2)
[2021-01-19] MEDS: POTASSIUM CHLORIDE 20 MEQ TAB 40 MEQ PO (06:51)
[2021-01-19] MEDS: ENOXAPARIN 40 MG/0.4 ML SYRINGE SUBCUT (09:14)
[2021-01-19] MEDS: NICOTINE 14 PATCH 14 MG TOP (09:14)
[2021-01-19] MEDS: SODIUM,POTASSIUM PHOSPHATES PACKET 1 EACH PO (09:14)
--- NOTE | 2021-01-19 11:35 | P.PN_ITS ---
Subjective Subjective Date Patient Seen: 01/19/21 Time Patient Seen: 11:35 Interval history: The patient is a 60-year-old male with an on diagnosis psychiatric disorder likely schizophrenia who presents to the hospital for nausea vomiting abdominal pain and significant weight loss. He was admitted for acute necrotizing pancreatitis. Overnight he did well on clear liquids, but is having more nausea and abdominal pain today. He feels quite poorly. He endorses occasional auditory hallucinations, no SI or HI. He is very interested in speaking with psychiatry, however not available over the weekend. Phos today 3.1 to 1.7 after eating. Repleted but will need to monitor closely. Will add some pain medications, the hope is that he may be able to tolerate sufficient oral intake to meet his needs, however if continued abdominal pain and nausea will need to likely start TPN. Had long discussion with sister today updating her. She was hoping he was agreeable to psychiatry evaluation, is worried about the patient returning home with his 92 year old father. Exam Vital Signs (past 8 hours): - 01/19/21 03:45 01/19/21 04:00 01/19/21 04:15 Temperature Pulse Rate 109 H 90 84 Respiratory Rate 19 12 12 Blood Pressure 95/66 Pulse Oximetry 01/19/21 04:30 01/19/21 04:45 01/19/21 05:00 Temperature Pulse Rate 81 88 99 H Respiratory Rate 12 12 13 Blood Pressure Pulse Oximetry 01/19/21 05:01 01/19/21 05:15 01/19/21 05:30 Temperature Pulse Rate 93 H 99 H 80 Respiratory Rate 13 11 L 12 Blood Pressure 91/65 Pulse Oximetry 01/19/21 05:45 01/19/21 06:00 01/19/21 07:00 Temperature 97.1 F L Pulse Rate 97 H 90 112 H Respiratory Rate 11 L 11 L 20 Blood Pressure 100/70 99/65 Pulse Oximetry 98 01/19/21 08:00 Temperature Pulse Rate 105 H Respiratory Rate 23 Blood Pressure Pulse Oximetry 96 Oxygen Delivery Method Room Air Oxygen Flow Rate 0 Narrative Exam Narrative: Gen: Ill-appearing emaciated cachectic male lying in bed somewhat agitated it and minimally cooperative HEENT: Severe bitemporal wasting, pale, oropharynx reveals moist membranese to day, neck is supple without adenopathy, no thyromegaly Lungs: Decreased breath sounds but clear to auscultation bilaterally Cardiac exam: Regular rate and rhythm normal S1-S2 Abdomen: Scaphoid. Soft, tender epigastrium and LUQ, minimal distension. Extremities: No edema Neuro exam: Patient is awake and answers questions appropriately, he is minimally cooperative with exam, he is able to move all extremities Psychiatric exam: flat affect, guarded, limited verbal responses. Endorses intermittent auditory hallucinations. Objective Labs Result Diagrams: 01/19/21 04:42 01/19/21 04:42 Labs: Laboratory Results - last 24 hr 01/19/21 01/19/21 04:42 04:42 WBC 2.8 L RBC 2.56 L Hgb 9.0 L Hct 26.2 L MCV 102.5 H MCH 35.3 H MCHC 34.4 RDW 14.1 Plt Count 142 L Neut % (Auto) 51.2 Lymph % (Auto) 35.5 [place] % (Auto) 9.5 Eos % (Auto) 2.5 Baso % (Auto) 1.3 Neut # (Auto) 1400 L Lymph # (Auto) 1000 L [place] # (Auto) 300 Eos # (Auto) 100 Baso # (Auto) 0 Sodium 133 L Potassium 3.3 L Chloride 101 Carbon Dioxide 26 BUN 11 Creatinine 0.75 Estimated GFR > 60.0 BUN/Creatinine Ratio 14.7 Glucose 90 Calcium 8.0 L Phosphorus 1.7 L D Magnesium 1.9 Total Bilirubin 0.5 Conjugated Bilirubin 0.0 Unconjugated Bilirubin 0.4 AST 39 ALT 14 Alkaline Phosphatase 65 Total Protein 4.8 L Albumin 2.1 L Globulin 2.7 Albumin/Globulin Ratio 0.8 L PFSH Medical History Psychosis Social History household members: family Smoking Status: Current every day smoker alcohol intake: never Assessment & Plan Assessment & Plan narrative: 60-year-old male admitted to the hospital with kathy re necrotizing pancreatitis, complicated by paranoid delusions likely from underlying schizophrenia. 1. Acute necrotizing pancreatitis, present on admission. -Patient presents with severe weight loss, wbc 3.0, nausea, and abdominal pain -CT scan confirms: emphesema, nectrotizing pancreatitis, with 2 small loculated peripancreatic fluid collections likely representing acute necrotic collections. There is mild pancreatic duct dilation, but no bilary ductal dilation, small gallstones in the gall bladder fundus identified -lipase elevated at 466 on admission. -patient hypotensive but normal lactate and afebrile -will continue IV hydration today, antiemetics, and pain medication -MRCP with biliary sludge but no obstruction seen. Appreciate surgical consultation by Dr. iLndsay, no surgical interventions at this time given his frailty. -abdominal pain after clears started yesterday evening, would like to trial oral pain medication in hopes that he could tolerate some nutrition. If he is unable to tolerate oral intake without pain will need to start TPN. 2. Severe protein calorie malnutrition -patient is emaciated and cachectic, albumin is 2.9, he has a BMI of 13.5 -patient is at high risk for refeeding syndrome -PICC line held given clinical improvement initially. Will change from clears to full liquid hopefully to add some protein and avoid sugary drinks given refeeding syndome risk and dropping phos. Should he continue to have uncontrolled abdominal pain will need to start TPN. -given the patient's significant weight loss he is at high risk for morbidity and mortality -TTE with a normal EF and no evidence of cardiomyopathy. 3. Tobacco dependence -patient was counseled to discontinue smoking -continue nicotine patch. 4. Probable schizophrenia versus other psychosis -patient is calm currently, intermittently agitated, expressed delusions on admission and today intermittent auditory hallucinations. Unknown chronicity. -psychiatry not available over the weekend, will consult on Thursday, patient is agreeable to evaluation today. 5. Hypokalemia, acute, improved -continue to monitor. patient required 120 meq to improve potassium to normal levels and additional repletion today. 6. Hyponatremia, improved. - continue to monitor closely. 7. Hypovolemic shock, resolved. - patient requiring levophed to maintain adequate perfusion. Likely in setting of hypovolemia and severe malnutrition, active inflammation from necrotizing pancreatitis. - improved with IV Fluids and was on levophed, now weaned off. 8. Elevated troponin, improved. - suspect related to demand in setting of hypovolemic shock. Peaked with initial lab value at .106 and downtrended. No complaints of chest pain. - TTE as noted above. Status: remains inpatient. Disposition unclear as is timing. Suspect prolonged admission for his pancreatitis and supplemental nutrition. Patient is listed as a full code, his father Tha schumacher is his surrogate decision maker COVID-19 COVID-19 status: Negative Quality VTE Deep Vein Thrombosis/Pulmonary Embolism Present on Admission: No
--- NOTE | 2021-01-19 12:12 | CM.SWNOTE ---
Initial DCP Assessment Note Patient is a 60 yo male, resident of [place]. According to Dr Ramirez's Prog note 5.1.21 The patient is a 60-year-old male with an on diagnosis psychiatric disorder likely schizophrenia who presents to the hospital for nausea vomiting abdominal pain and significant weight loss. He was admitted for acute necrotizing pancreatitis. Overnight he did well on clear liquids, but is having more nausea and abdominal pain today. He feels quite poorly. He endorses occasional auditory hallucinations, no SI or HI. He is very interested in speaking with psychiatry, however not available over the weekend...Status: remains inpatient. Disposition unclear as is timing. Suspect prolonged admission for his pancreatitis and supplemental nutrition. Patient has been agitated on/off, cooperative w/care today. Attempted assessment and Dr Ramirez in for visit, this APPLICATION SUPPORT ANALYST will return later today or tomorrow. Dr Ramirez expects to begin TPN since patient has not tolerated advancement of diet yet. Sister Georgia requests call from this APPLICATION SUPPORT ANALYST and patient gives permission to call sister Georgia Catalan ([place]) P# [phone]. Georgia headed back to [place] today, currently at the airport, states I can come back, but I needed to take care of things at home. According to our conversation: Patient has struggled with poly substance abuse and suffered from mental illness since his youth. Patient has never been diagnosed, never been medicated or seen by a counselor that sister is aware of. Patient moved in with his older parents approx. 8 years ago, mom 3 years ago. Although father doesn't tolerate mental illness very well sister has never suspected abuse towards his elderly parents from patient. Current neighbors have longstanding h/o of reporting patient to the police d/t irregular or volatile behaviors but sister is not aware of any outstanding legal involvement or h/o detainment to psychiatric care. Patient has long standing h/o paranoid delusions, often centering around the government implanting a chip in his brain Sister denies any h/o suicidal ideation or attempt per her knowledge. Patient has been unwilling to seek help from doctors or MH professionals until now, sister spoke w/patient this morning and sister asked do you want to get better? patient answered yes I need medical help and I need psychiatric help, I have a psychiatric illness Family believe patient stopped drinking when his abdomen started hurting regularly, at least for months, timeline unknown. Re: DCP- Sister understands there may not be an alternative to patient returning home upon medical DC, however, 92 yo father should not be expected to assist at all and sister hopeful HH referral can be done if patient agreeable, as well as close outpatient f/u? Again, if patient agreeable. Sister and patient have a good rapport, no DPOA ppk or assignment at this time. No spouse, no children. This APPLICATION SUPPORT ANALYST will continue to follow closely as medical POC unfolds. Expect psychiatric consult beginning of the week if patient agrees and psychiatry is available. PT/OT once medically appropriate. Will meet w/patient to review above over next 24hrs. LELE Castillo
[2021-01-19] MEDS: OXYCODONE IR 5 MG TABLET PO (12:41)
--- NOTE | 2021-01-19 13:02 | PC.NURSE ---
I CAN'T KEEP DOING THIS -WE ARE JUST GOING IN CIRCLES WHEN ASKED SPECIFICALLY ABOUT WHAT HE MEANT OR WANTED- HE WISHED TO THINK ABOUT A BIT WAS HIS REPLY- PT CONTINUES TO WAX AND WANE COGNITIVELY- REFUSING TO TAKE MUCH PO AT ALL- CALORIE COUNT PER DIETARY, NS CONTINUES TO INFUSE AT 100CC/H - TAKING MEDS WITHOUT PROBLEM THIS SHIFT- OXYCODONE GIVEN FOR FLACC SCORE OF 5 AND GENERALIZED DISCOMFORT-
[2021-01-19 17:57] LABS: BUN Creatinine Ratio 16.4 (6-22); Blood Urea Nitrogen 11 mg/dL (9-20); Calcium 7.9 mg/dL (8.4-10.2); Carbon Dioxide 26 mmol/L (22-32); Chloride 104 mmol/L (98-107); Estimated Glomerular Filt Rate > 60.0 mL/min (>60); Glucose 87 mg/dL (80-110); HEMOLYSIS < 15 (0-50); Magnesium 1.7 mg/dL (1.6-2.3); Phosphorous 2.3 mg/dL (2.3-3.7); Potassium 3.9 mmol/L (3.4-5.1); Sodium 134 mmol/L (137-145)
[2021-01-19] MEDS: FAMOTIDINE 20 MG/50 ML PIGGYBACK 200 MG IV (19:59)
[2021-01-20] VITALS (7 sets, daily range): BP systolic 81–111; BP diastolic 55–69; PULSE 75–126; RESP 14–20; TEMP 36.1–36.7; O2SAT 96–99
[2021-01-20] MEDS: LORazepam 2 MG/ML INJ IV (02:41)
[2021-01-20 05:15] LABS: Add Manual Diff / Slide Review NO; Basophils Absolute Auto 0 /uL (0-100); Basophils Percent Auto 0.6 % (0-2); Eosinophils Absolute Auto 0 /uL (0-450); Eosinophils Percent Auto 0.6 % (2-4); Hemoglobin 10.4 g/dL (13.5-17.5); Lymphocytes Absolute Auto 1500 /uL (1100-4500); Lymphocytes Percent Auto 31.7 % (25-40); Mean Corpuscular HGB Conc 34.6 % (30-36); Mean Corpuscular Hemoglobin 35.5 PG (26-34); Mean Corpuscular Volume 102.7 fL (80-100); Monocytes Absolute Auto 600 /uL (0-900); Monocytes Percent Auto 11.8 % (3-14); Neutrophils Absolute Auto 2600 /uL (1500-7000); Neutrophils Percent Auto 55.3 % (50-75); Platelet Count 146 X10^3/uL (150-400); Red Blood Cell Count 2.93 X10^6/uL (4.5-5.9); Red Cell Distribution Width 14.7 % (11.6-14.8); White Blood Cell Count 4.8 X10^3/uL (4.5-11.0)
[2021-01-20 05:23] LABS: Alanine Aminotransferase 16 IU/L (<50); Albumin 2.2 g/dL (3.5-5.0); Albumin Globulin Ratio 0.8 (1.0-2.8); Alkaline Phosphatase 82 U/L (38-126); Aspartate Aminotransferase 37 IU/L (17-59); BUN Creatinine Ratio 14.1 (6-22); Bilirubin Total 0.6 mg/dL (0.2-1.3); Bilirubin Unconjugated 0.4 mg/dL (0.0-1.1); Blood Urea Nitrogen 10 mg/dL (9-20); Calcium 8.2 mg/dL (8.4-10.2); Carbon Dioxide 24 mmol/L (22-32); Chloride 106 mmol/L (98-107); Estimated Glomerular Filt Rate > 60.0 mL/min (>60); Globulin 2.9 g/dL (1.7-4.1); Glucose 94 mg/dL (80-110); HEMOLYSIS < 15 (0-50); Magnesium 1.6 mg/dL (1.6-2.3); Phosphorous 1.8 mg/dL (2.3-3.7); Potassium 3.6 mmol/L (3.4-5.1); Sodium 135 mmol/L (137-145); Total Protein 5.1 g/dL (6.3-8.2)
[2021-01-20] MEDS: SODIUM CHLORIDE 0.9% 1,000 ML 50 ML IV (07:44)
[2021-01-20] MEDS: LORazepam 2 MG/ML INJ 1 MG IV ×3 (07:53→19:02)
[2021-01-20] MEDS: SODIUM,POTASSIUM PHOSPHATES PACKET 1 EACH PO ×2 (07:54)
--- NOTE | 2021-01-20 09:14 | P.PN_ITS ---
Subjective Subjective Date Patient Seen: 01/20/21 Time Patient Seen: 09:14 Interval history: The patient is a 60-year-old male with an undiagnosed psychiatric disorder likely schizophrenia who presents to the hospital for nausea vomiting abdominal pain and significant weight loss. He was admitted for acute necrotizing pancreatitis. Yesterday he was started on oxycodone which has improved his abdominal pain, he denies pain with meals. He remains on full liquids over concern for refeeding syndrome. Multiple repletements of phos over the last 24 hours since starting a diet. He seemed a bit more confused today, also stating that yesterday he hallucinated multiple people in the halls congratulating him and giving him gifts. He still lacks appetite. Exam Vital Signs (past 8 hours): - 01/20/21 04:49 01/20/21 08:12 Temperature 97.7 F 96.9 F L Pulse Rate 126 H 75 Respiratory Rate 18 15 Blood Pressure 111/67 81/55 L Pulse Oximetry 96 98 Oxygen Delivery Method Room Air Oxygen Flow Rate 0 Narrative Exam Narrative: Gen: Ill-appearing emaciated cachectic male lying in bed somew hat agitated it and minimally cooperative HEENT: Severe bitemporal wasting, pale, oropharynx reveals moist membranese today, neck is supple without adenopathy, no thyromegaly Lungs: Decreased breath sounds but clear to auscultation bilaterally Cardiac exam: Regular rate and rhythm normal S1-S2 Abdomen: Scaphoid. Soft, nontender, minimal distension. Extremities: No edema Neuro exam: Patient is awake and answers questions appropriately, cooperative he is able to move all extremities Psychiatric exam: flat affect, guarded, limited verbal responses. Endorses intermittent auditory and visual hallucinations. Objective Labs Result Diagrams: 01/20/21 04:52 01/20/21 04:52 Labs: Laboratory Results - last 24 hr 01/19/21 01/20/21 01/20/21 17:33 04:52 04:52 WBC 4.8 D RBC 2.93 L Hgb 10.4 L Hct 30.0 L MCV 102.7 H MCH 35.5 H MCHC 34.6 RDW 14.7 Plt Count 146 L Neut % (Auto) 55.3 Lymph % (Auto) 31.7 [place] % (Auto) 11.8 Eos % (Auto) 0.6 L Baso % (Auto) 0.6 Neut # (Auto) 2600 Lymph # (Auto) 1500 [place] # (Auto) 600 Eos # (Auto) 0 Baso # (Auto) 0 Sodium 134 L 135 L Potassium 3.9 3.6 Chloride 104 106 Carbon Dioxide 26 24 BUN 11 10 Creatinine 0.67 0.71 Estimated GFR > 60.0 > 60.0 BUN/Creatinine Ratio 16.4 14.1 Glucose 87 94 Calcium 7.9 L 8.2 L Phosphorus 2.3 1.8 L Magnesium 1.7 1.6 Total Bilirubin 0.6 Conjugated Bilirubin 0.0 Unconjugated Bilirubin 0.4 AST 37 ALT 16 Alkaline Phosphatase 82 Total Protein 5.1 L Albumin 2.2 L Globulin 2.9 Albumin/Globulin Ratio 0.8 L PFSH Medical History Psychosis Social History household members: family Smoking Status: Current every day smoker alcohol intake: never Assessment & Plan Assessment & Plan narrative: 60-year-old male admitted to the hospital with severe necrotizing pancreatitis, complicated by paranoid delusions likely from underlying schizophrenia. 1. Acute necrotizing pancreatitis, present on admission. -Patient presents with severe weight loss, wbc 3.0, nausea, and abdominal pain. Endorses abdominal pain for years prior to admission. -CT scan confirms: emphesema, nectrotizing pancreatitis, with 2 small loculated peripancreatic fluid collections likely representing acute necrotic collections. There is mild pancreatic duct dilation, but no bilary ductal dilation, small gallstones in the gall bladder fundus identified -lipase elevated at 466 on admission. -patient hypotensive but normal lactate and afebrile, no evidence of organ failure -will continue IV hydration today but decreased amount, antiemetics, and pain medication -MRCP with biliary sludge but no obstruction seen. Appreciate surgical consultation by Dr. Lindsay, no surgical interventions at this time given his frailty. -abdominal pain after clears started yesterday evening, improved pain with oxycodone but slight confusion today, will reduce oxycodone dosing. If he is unable to tolerate oral intake without pain will need to start TPN or consider hospice consultation. 2. Severe protein calorie malnutrition -patient is emaciated and cachectic, albumin is 2.9, he has a BMI of 13.5 -patient is at high risk for refeeding syndrome -PICC line held given clinical improvement initially. Should he have uncontrolled abdominal pain with meals will need to start TPN. -given the patient's significant weight loss he is at high risk for morbidity and mortality -TTE with a normal EF and no evidence of cardiomyopathy. 3. Tobacco dependence -patient was counseled to discontinue smoking -continue nicotine patch. 4. Probable schizophrenia versus other psychosis -patient is calm currently, intermittently agitated, expressed delusions on admission and today intermittent auditory hallucinations. Unknown chronicity. -psychiatry not available over the weekend, will consult on Thursday, patient is agreeable to evaluation today. 5. Hypokalemia, acute, improved -continue to monitor. patient continues to require repletion of potassium 6. Hyponatremia, improved. - continue to monitor closely. 7. Hypovolemic shock, resolved. - patient requiring levophed to maintain adequate perfusion. Likely in setting of hypovolemia and severe malnutrition, active inflammation from necrotizing pancreatitis. - improved with IV Fluids and was on levophed, now weaned off. 8. Elevated troponin, improved. - suspect related to demand in setting of hypovolemic shock. Peaked with initial lab value at .106 and downtrended. No complaints of chest pain. - TTE as noted above. 9. Hypophosphatemia, acute - secondary to refeeding. Continue to replete as needed Status: remains inpatient. Disposition unclear as is timing. Suspect prolonged admission for his pancreatitis and supplemental nutrition. Patient is listed as a full code, his father Tha schumacher is his surrogate decision maker, also able to discuss with patient's sister as well. Quality VTE Deep Vein Thrombosis/Pulmonary Embolism Present on Admission: No
--- NOTE | 2021-01-20 09:17 | PC.NURSE ---
Addendum entered by Neisha Jerry R.N. 01/20/21 14:30: Moved Pt to room 227 for better observation. 2PA and able to stand and pivot from w/c to bed. Addendum entered by Neisha Jerry R.N. 01/20/21 14:00: Pt with increased agitation this afternoon. Repeatedly removing tele and attempts at removing clothing. Brief changed, Pt medicated with Ativan and supervised for safety. Reinforced cover on IV to LUE. Addendum entered by Neisha Jerry R.N. 01/20/21 13:05: Father into visit and drop off clothing. Will come by tomorrow afternoon, hopefully update from Psych at that time. Took home dirty laundry from admission. Original Note: Am shift Pt is drowsy this AM, not much sleep per report. He remains confused, more today noted during assessment. Tele is in place, though increased artifact with movement. Full liquid diet, although Pt is not taking much PO, denies nausea. Denies pain, but facial grimace noted occasionally. Encouraging PO intake with cueing and offering different meal options. Pt remains impulsive and reports some hallucinations. BA active, will continue to enc PO. intake.
--- NOTE | 2021-01-20 09:20 | CM.SWNOTE ---
According to SADE Driver, patient w/increased confusion overnight and this morning. HEAD CHAR FILTER TANK TENDER will place hold on bedside assessment today JW
[2021-01-20] MEDS: NICOTINE 14 PATCH 14 MG TOP (09:36)
[2021-01-20] MEDS: ENOXAPARIN 30 MG/0.3 ML SYRINGE SUBCUT (10:54)
[2021-01-20] MEDS: OXYCODONE IR 5 MG TABLET 2.5 MG PO (10:57)
[2021-01-20] MEDS: FAMOTIDINE 20 MG/50 ML PIGGYBACK 200 MG IV (20:37)
--- NOTE | 2021-01-20 22:27 | PC.NURSE ---
Shift note: Pt restless and anxious, non directable and impulsive, states he feels sensory overload. Ativan 1mg given IV @ 1900 with good effect. Pt consumed approx 75% of smoothie sent on dinner tray. IV of NS infusing to JAVON ML @ 50ml/hr. Alert to self only, and non conversant. Allevyn dressing placed over bony prominance of both hips to prevent breakdown. Up to the chair one time this shift for approximately 30 minutes. Moves with unsteady gait, states he is very weak. Pt continues to refuse telemetry, aware.
[2021-01-21] VITALS (7 sets, daily range): BP systolic 95–118; BP diastolic 57–73; PULSE 84–114; RESP 14–18; TEMP 36–36.6; O2SAT 94–100
[2021-01-21] MEDS: LORazepam 2 MG/ML INJ 1 MG IV ×2 (00:45→05:07)
[2021-01-21] MEDS: MORPHINE 2 MG/ML INJ IV ×2 (00:49→05:07)
[2021-01-21] MEDS: SODIUM CHLORIDE 0.9% 1,000 ML 50 ML IV (04:35)
[2021-01-21 05:27] LABS: Add Manual Diff / Slide Review NO; Basophils Absolute Auto 0 /uL (0-100); Basophils Percent Auto 0.8 % (0-2); Eosinophils Absolute Auto 100 /uL (0-450); Eosinophils Percent Auto 1.2 % (2-4); Hematocrit 30.3 % (41-53); Hemoglobin 10.4 g/dL (13.5-17.5); Lymphocytes Absolute Auto 1700 /uL (1100-4500); Lymphocytes Percent Auto 37.8 % (25-40); Mean Corpuscular HGB Conc 34.4 % (30-36); Mean Corpuscular Hemoglobin 35.4 PG (26-34); Mean Corpuscular Volume 102.9 fL (80-100); Monocytes Absolute Auto 500 /uL (0-900); Monocytes Percent Auto 10.6 % (3-14); Neutrophils Absolute Auto 2200 /uL (1500-7000); Neutrophils Percent Auto 49.6 % (50-75); Platelet Count 155 X10^3/uL (150-400); Red Blood Cell Count 2.95 X10^6/uL (4.5-5.9); Red Cell Distribution Width 14.6 % (11.6-14.8); White Blood Cell Count 4.4 X10^3/uL (4.5-11.0)
[2021-01-21 05:29] LABS: Alanine Aminotransferase 17 IU/L (<50); Albumin 2.1 g/dL (3.5-5.0); Albumin Globulin Ratio 0.7 (1.0-2.8); Alkaline Phosphatase 81 U/L (38-126); Aspartate Aminotransferase 40 IU/L (17-59); BUN Creatinine Ratio 9.9 (6-22); Bilirubin Total 0.7 mg/dL (0.2-1.3); Bilirubin Unconjugated 0.6 mg/dL (0.0-1.1); Blood Urea Nitrogen 7 mg/dL (9-20); Calcium 8.3 mg/dL (8.4-10.2); Carbon Dioxide 25 mmol/L (22-32); Chloride 109 mmol/L (98-107); Estimated Glomerular Filt Rate > 60.0 mL/min (>60); Globulin 2.9 g/dL (1.7-4.1); Glucose 95 mg/dL (80-110); HEMOLYSIS < 15 (0-50); Magnesium 1.4 mg/dL (1.6-2.3); Phosphorous 2.5 mg/dL (2.3-3.7); Potassium 3.8 mmol/L (3.4-5.1); Sodium 136 mmol/L (137-145)
[2021-01-21] MEDS: NICOTINE 14 PATCH 14 MG TOP (08:52)
[2021-01-21] MEDS: MAGNESIUM SULFATE 2 GM/50 ML PIGGYBACK IV (08:52)
[2021-01-21] MEDS: ENOXAPARIN 30 MG/0.3 ML SYRINGE SUBCUT (08:52)
[2021-01-21 08:55] LABS: Lipase 100 U/L (23-300)
--- NOTE | 2021-01-21 12:42 | DIET.PN ---
Dietary Progress Note Assessment: 60y M admitted c pmhx paranoid schizophrenia for failure to thrive and necrotizing pancreatitis referred to nutrition for severe protein calorie malnutrition c high risk for refeeding syndrome. HT: 177.8cm WT: 49.8kg UBW: 100kg BMI: 15.8 (severe) Pt has midline placed but refused PICC so TPN not initiated. Hospitalist decided to trial clears with slow diet advancement as tolerated to protect from refeeding syndrome. MNA:5 malnourished Tim:18 c stage 1 pressure sore on coccyx Nutrition Diagnosis: Severe Acute on Chronic PCM r/t inability to tolerate oral intake aeb 58% unintentional weight loss in 6mo (severe), BMI 13.5 (severe), severe cachexia, pt has had N/V x6mo leading him to quit etoh and unable to tolerate POs. Interventions: 1. Calorie Count over the weekend with Recc pt receive 500 kcals/d (12kcal/kg) for first two days spread through three meals to reduce nutrition load and to monitor for signs of refeeding. Cautiously increase to 750kcals on day three if tolerating. Pt PO's <25% with few sips of shake and veg broth. Maintain previous recommendation if PO. If Clears menu twice/d: ONS Nick, vegetable broth, tea (no sugar), lemon slices once/d: vegetable broth, tea (no sugar), lemon slices If Fulls menu twice/d: Smoothie containing soymilk, Orgain protein powder, banana c vegetable broth, tea (no sugar), lemon slices once/d: vegetable broth, tea (no sugar), lemon slices 3. If initiating TPN in place of PO intake, begin at 15mL/h for first 12h increasing by 10mL q12h as tolerated to temporary goal of 41mL/h (1L bag), hold lipids per pancreatitis until stabilized. Diet Order:Full Liquid EER:to be calculated when pt out of refeeding window Monitoring/Evaluations: Labs, PO tolerance, waiting for psych consult to evaluate TPN vs. PO's.
--- NOTE | 2021-01-21 12:57 | P.PN_ITS ---
Subjective Subjective Date Patient Seen: 01/21/21 Time Patient Seen: 12:57 Interval history: The patient is a 60-year-old male with an undiagnosed psychiatric disorder likely schizophrenia who presents to the hospital for nausea vomiting abdominal pain and significant weight loss. He was admitted for acute necrotizing pancreatitis. He was started on oxycodone which has improved his abdominal pain, he denies pain with meals. He remains on full liquids over concern for refeeding syndrome which he is tolerating some of. Multiple repletements of phos over the last 24 hours since starting a diet. He is lethargic and withdrawn. Have reached out to Psychiatry for assistance in management of his schizophrenia as it may be contributing towards his malnutrition. He denies fever, chills, abdominal pain, nausea today. He still is quite weak. Exam Vital Signs (past 8 hours): - 01/21/21 05:08 01/21/21 09:01 01/21/21 11:34 Temperature 97.8 F 97.8 F 97.4 F L Pulse Rate 114 H 84 102 H Respiratory Rate 15 16 18 Blood Pressure 95/62 118/72 106/72 Pulse Oximetry 94 95 97 Oxygen Delivery Method Room Air Oxygen Flow Rate 0 Narrative Exam Narrative: Gen: Ill-appearing emaciated cachectic male lying in bed HEENT: Severe bitemporal wasting, pale, oropharynx reveals moist membranese today, neck is supple without adenopathy, no thyromegaly Lungs: Decreased breath sounds but clear to auscultation bilaterally Cardiac exam: Regular rate and rhythm normal S1-S2 Abdomen: Scaphoid. Soft, nontender, minimal distension. Extremities: No edema Neuro exam: Patient is awake and answers questions appropriately, cooperative he is able to move all extremities Psychiatric exam: flat affect, guarded, limited verbal responses. Endorses intermittent auditory and visual hallucinations. Objective Labs Result Diagrams: 01/21/21 05:02 01/21/21 05:02 Labs: Laboratory Results - last 24 hr 01/21/21 01/21/21 01/21/21 05:00 05:02 05:02 WBC 4.4 L RBC 2.95 L Hgb 10.4 L Hct 30.3 L MCV 102.9 H MCH 35.4 H MCHC 34.4 RDW 14.6 Plt Count 155 Neut % (Auto) 49.6 L Lymph % (Auto) 37.8 [place] % (Auto) 10.6 Eos % (Auto) 1.2 L Baso % (Auto) 0.8 Neut # (Auto) 2200 Lymph # (Auto) 1700 [place] # (Auto) 500 Eos # (Auto) 100 Baso # (Auto) 0 Sodium 136 L Potassium 3.8 Chloride 109 H Carbon Dioxide 25 BUN 7 L Creatinine 0.71 Estimated GFR > 60.0 BUN/Creatinine Ratio 9.9 Glucose 95 Calcium 8.3 L Phosphorus 2.5 Magnesium 1.4 L Total Bilirubin 0.7 Conjugated Bilirubin 0.0 Unconjugated Bilirubin 0.6 AST 40 ALT 17 Alkaline Phosphatase 81 Total Protein 5.0 L Albumin 2.1 L Globulin 2.9 Albumin/Globulin Ratio 0.7 L Lipase 100 D [facility] Medical History Psychosis Social History household members: family Smoking Status: Current every day smoker alcohol intake: never Assessment & Plan Assessment & Plan narrative: 60-year-old male admitted to the hospital with severe necrotizing pancreatitis, complicated by paranoid delusions likely from underlying schizophrenia. 1. Acute necrotizing pancreatitis, present on admission. -Patient presents with severe weight loss, wbc 3.0, nausea, and abdominal pain. Endorses abdominal pain for years prior to admission. -CT scan confirms: emphesema, nectrotizing pancreatitis, with 2 small loculated peripancreatic fluid collections likely representing acute necrotic collections. There is mild pancreatic duct dilation, but no bilary ductal dilation, small gallstones in the gall bladder fundus identified -lipase elevated at 466 on admission, repeated this AM and it is 100 after initiation of meals. -patient hypotensive but normal lactate and afebrile, no evidence of organ fa ilure -will continue IV hydration today but decreased amount, antiemetics, and pain medication -MRCP with biliary sludge but no obstruction seen. Appreciate surgical consultation by Dr. Lindsay, no surgical interventions at this time given his frailty. -abdominal pain after clears started yesterday evening, improved pain with oxycodone but slight confusion. Reduced dosing with some improvement in this. Unclear if psychiatric condition is contributing toward his malnutrition as well, have asked psychiatry today for assistance, Dr. Prakash. 2. Severe protein calorie malnutrition -patient is emaciated and cachectic, albumin is 2.9, he has a BMI of 13.5 -patient is at high risk for refeeding syndrome -PICC line held given clinical improvement initially. Should he have uncontrolled abdominal pain with meals will need to start TPN. -given the patient's significant weight loss he is at high risk for morbidity and mortality -TTE with a normal EF and no evidence of cardiomyopathy. 3. Tobacco dependence -patient was counseled to discontinue smoking -continue nicotine patch. 4. Probable schizophrenia versus other psychosis -patient is calm currently, intermittently agitated, expressed delusions on admission and intermittent auditory hallucinations. Unknown chronicity. -psychiatry called today, Dr. Prakash to consult as discussed above. 5. Hypokalemia, acute, improved -continue to monitor. patient continues to require repletion of potassium 6. Hyponatremia, improved. - continue to monitor closely. 7. Hypovolemic shock, resolved. - patient requiring levophed to maintain adequate perfusion. Likely in setting of hypovolemia and severe malnutrition, active inflammation from necrotizing pancreatitis. - improved with IV Fluids and levophed, now weaned off. 8. Elevated troponin, improved. - suspect related to demand in setting of hypovolemic shock. Peaked with init ial lab value at .106 and downtrended. No complaints of chest pain. - TTE as noted above. 9. Hypophosphatemia, acute - secondary to refeeding. Continue to replete as needed Status: remains inpatient. Disposition unclear as is timing. Suspect prolonged admission for his pancreatitis and supplemental nutrition. Can start PT/OT today. Patient is listed as a full code, his father Tha schumacher is his surrogate decision maker, also able to discuss with patient's sister as well whom lives in [place]. Quality VTE Deep Vein Thrombosis/Pulmonary Embolism Present on Admission: No
--- NOTE | 2021-01-21 16:54 | PT.IIE ---
Current Diagnoses Acute pancreatitis with uninfected necrosis, unspecified (01/17/21) Medical History (Last Reviewed 01/17/21 @ 20:52 by Miguel A Lindsay MD) Psychosis Physical Therapy Inpatient Evaluation/Re-Eval M1 PT/OT-IP Prior Functional Status Start: 01/21/21 13:21 Freq: NEEDED Status: Active Protocol: Document 01/21/21 16:54 AW (Rec: 01/21/21 17:22 AW [id number]) Medical Review Prior Functional Status Medical History Reviewed Yes Communication Unknown baseline. Pt is able to make needs known per nursing. EMR indicates pt has endorsed visual and auditory hallucinations during this stay. Psychiatry consult has been placed. Mobility and Gait Unknown baseline Activities of Daily Living and IADL's Unknown baseline Social History Household Members family Living Arrangements House Additional Social History Comment Pt states he lives with his parents in [place]. This PT asked pt if she could call his parents to discuss PLOF. Pt agreed. This proposal lead writer called and left a voice message requesting a call back but has not heard back. Chart review yields limited results as this is the pt's first contact with this hospital. M2 PT-IP Current Condition Start: 01/21/21 13:21 Freq: NEEDED Status: Active Protocol: Document 01/21/21 16:54 AW (Rec: 01/21/21 17:22 AW [id number]) Physical Therapy Current Condition Current Condition Evaluation Date 01/21/21 Treatment Diagnosis FTT; acute necrotizing pancreatitis; impaired mobility and gait Onset Date 01/17/21 M3 PT-IP Subjective Start: 01/21/21 13:21 Freq: NEEDED Status: Active Protocol: Document 01/21/21 16:54 AW (Rec: 01/21/21 17:22 AW [id number]) Subjective Physical Therapy Visit Type Type Initial Evaluation Visit Start Time 15:08 Visit Stop Time 15:40 Total Visit Minutes 32 Number of BAG MACHINE HELPER Visits 0 Physical Therapy Visit Comments Patient Comments I need to go to the bathroom. Patient Goals Unable to ascertain Therapy Pain Assessment Pain When Pain Assessed During Mobility Pain Present Pain Present Pain Reported Location Abdomen Scale Used not quantified; pt c/o nausea with pressure from gait belt Pain Management Techniques Distraction,Modification of Treatment M4 PT-IP Mobility and Gait Start: 01/21/21 13:21 Freq: NEEDED Status: Active Protocol: Document 01/21/21 16:54 AW (Rec: 01/21/21 17:22 AW [id number]) PT-Bed Mobility Assessment Supine to Sit Supine to Sit Minimal Assistance,1 Person Assistance Scooting Scooting to Edge of Bed Minimal Assistance PT-Transfer Assessment Sit to and From Stand Sit to and from Stand Moderate Assistance,Maximum Assistance,1 Person Assistance ,Use of Upper Extremities Equipment Transfer Assistive Device Gait Belt,Front Wheeled Walker Orthotic/Prosthetic Devices or Brace: No Transfers Transfer Destination Chair,Bedside Commode Transfer Technique Stand Step Pivot Transfer Ability Level of Assist Maximum Assistance,1 Person Assistance,Use of Upper Extremities Comments Mobility Comments Pt requested to use the toilet . He impulsively turned to his left side and began to roll toward the bed rail. PT assisted pt from SL to sit min A x 1 and placed gait belt. With FWW in front of him, pt was able to stand mod A x 1 but with initial unsteadiness and poor strength requiring max A x 1 for transfer to BS. Pt needed max verbal and tactile cues and max assist for walker management during transfer. He only minimally shifted his weight and slid his feet in order to turn. Pt sat on the BSC but was unable to void. He attempted multiple times to stand from the walker in order to transfer to the chair but complained of abdominal pain and nausea due to pressure through the gait belt as PT attempted to assist . On fifth attempt, pt stated I can do it. Take your hands off. PT stood by as pt stood longterm, placed his hands on the walker and then needed assist to stand upright with max cues for knee extension. Pt again was only minimally able to shift weight and slide his feet during 90 degree turn and transfer to the chair . Pt needed assist to shift his hips toward back of chair which was pre-equipped with waffle cushion. PT left pt in reclined position with call light and all needs in reach, chair alarm on. Curtain was left fully open for max visibilty from nurse station. Gait Assessment Comments Gait Comments Minimal weight shifting observed during transfers only . Unable to ambulate. Stair Climbing Assessment Comments Stair Climbing Comments Not assessed. PT-Balance Assessment Sitting Balance and Reactions Static Sitting Balance Ability Fair Dynamic Sitting Balance Ability Poor Standing Balance and Reactions Static Standing Balance Ability Poor Dynamic Standing Balance Ability Poor M5 PT-IP Objective Assessments Start: 01/21/21 13:21 Freq: NEEDED Status: Active Protocol: Document 01/21/21 16:54 AW (Rec: 01/21/21 17:22 AW [id number]) Orientation Orientation/Cognition Level of Alertness Confusional State Orientation Name Language Function Ability Hard of Hearing Safety Awareness Decreased Safety Awareness Memory Description Short Term Impaired,Spool Worker 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 Pt unable to bear weight with full knee or hip extension due to weakness. Sensation Assessment Comments Sensation Comments Unable to assess. Muscle Tone Muscle Tone WNL No Muscle Tone Location Bilateral Lower Extremity Type of Tone Hypotonicity Comments Muscle Tone Comments Pt cachectic and frail- appearing with clear muscle wasting and low tone. M6 PT-IP Treatment Start: 01/21/21 13:21 Freq: NEEDED Status: Active Protocol: Document 01/21/21 16:54 AW (Rec: 01/21/21 17:22 AW [id number]) Physical Therapy Treatment Education Education Provided Safety M7 PT-IP Assessment and Plan Start: 01/21/21 13:21 Freq: NEEDED Status: Active Protocol: Document 01/21/21 16:54 AW (Rec: 01/21/21 17:22 AW [id number]) PT Summary Assessment and Plan Potential Rehabilitation Potential Poor Status of Condition at Evaluation Evolving Summary Impairments Pain,Strength,Balance,Tone, Cognition,Bed Mobility, Transfers,Gait Assessment Summary Victor Hugo is a 60 yo man admitted with failure to thrive and acute necrotizing pancreatitis . PLOF is unknown as pt is a poor historian and PT was unable to contact pt's parents . Pt is currently requiring mod to max assist for bed mobility and transfers and has poor activity tolerance. He is unable to ambulate at this time. He will likely require SNF rehab to improve strength and mobility independence. PT will continue to assess and refine discharge recommendation based on progress and PLOF. Goals Bed Mobility Goal Standby Assistance Transfer Goal Minimal Assistance,Front Wheeled Walker Gait Goal Minimal Assistance,Front Wheel Walker Gait Distance 75 Days to Meet Goals 10 Frequency of Treatment Frequency Of Treatment Once a Day Treatment Plan Physical Therapy Treatment Plan Bed Mobility Training,Transfer Training,Gait Training, Therapeutic Exercise,Balance Retraining,Discharge Planning, Hot or Cold Pack,Neuromuscular Re-ed,Coordination Retraining Other Recommendations and Next Treatment mobility as tolerated Focus Recommendations To Nursing Amount of Assist Needed 2 Person Assist Discharge Recommendations PT Discharge Recommendations SNF Rehab Transportation Needs at Discharge Wheelchair/Cabulance
--- NOTE | 2021-01-21 17:21 | P.CONS_ITS ---
History of Present Illness Consult details Date Patient Seen: 01/21/21 Time Patient Seen: 16:45 Chief complaint: FTT Reason for consult: Hx of Psychosis Requesting provider: Abdon Ramirez Narrative: REFERRAL INFORMATION This is the latest of many psychiatric evaluations for this 60-year-old male referred by Dr. Sewell for evaluation of psychosis. RECORDS REVIEW The patient?s referral documents, medical records and intake questionnaire were reviewed as part of this evaluation. CHIEF COMPLAINT ?I was not doing so good.?? HISTORY OF PRESENT ILLNESS The patient was minimally verbal on the 2 occasions that I saw him, yesterday afternoon, and today. I was able to contact his sister Georgia Catalan at [phone] and she was able to provide significant background information. Briefly summarized, the patient was admitted several days ago after he presented to the emergency department with worsening abdominal pain and was diagnosed with necrotizing pancreatitis. He has a long history of polysubstance use disorder that dates back many years. His sister reports that she is not specifically aware of any other drugs other than alcohol but strongly suspects them. However, she notes that he began smoking marijuana when he was in middle school, by high school he was an extremely heavy alcohol user, and appeared to be a heavy drinker and possibly using other drugs as the developed into adulthood. 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 He was twice but has no children. 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 In addition to his job loss his marriage ended and he resorted to substance use even more. His sister stated that at some point in the last 25 years he began to experience psychotic symptoms which mostly consisted of delusions regarding the medical community and severe paranoid mistrust. He has been periodically detained at various places for 72 hour hold, but never admitted, and never treated as an outpatient. He was usually held until he sobered up and then released. His sister also reported that he was adopted when he was about 1-week-old into their family. He has never been violent towards anyone, but will experience angry outbursts and break things or yell loudly. Hence his being brought in by police for 72 hour holds. She also noted that he began to become psychotic he began to express a number of different paranoid delusions stating that at 1 point it had an x-ray of his brain which revealed an FBI tracking device that was monitoring his thoughts. Because his thoughts were being monitored, he observed that shortly after he became frustrated with repeated scratches on his phone a graph records and wondered about a possible invention of a laser that could read encoded music, the CD ROM was invented. This was apparent proved to him that his thoughts were being monitored and people using his ideas. She told me that he experiences auditory hallucinations that he called ?the radio? in his head and that he often feels as if he is a ?targeted individual.? He also has a delusion that he was born a hermaphrodite and at 1 point was spirited away and forced to become a male. He apparently has been living for the last 5 or more years in his parents basement in [place] after being evicted from public housing for repeated episodes of creating noise disturbance. He apparently had been fairly stable there and although was not able to work, was able to do chores around the house and even did extensive meal preparation and cooking. PAST PSYCHIATRIC HISTORY - Diagnoses: Unknown at this time - Inpatient: Brief psychiatric emergency hold, never any prolonged inpatient treatment - Outpatient: None. - Suicide Attempts: None known PREVIOUS PSYCHIATRIC MEDICATION TRIALS Unknown. May have had brief (less than 72 hours) treatment with antipsychotics but otherwise unknown CURRENT PSYCHOTROPIC MEDICATIONS None FAMILY HISTORY - Maternal: Unknown, adopted - Paternal: Unknown, adopted - Siblings: Unknown, adopted SUBSTANCE USE HISTORY - Tobacco: Everyday smoker - Alcohol: Significant history of fairly severe alcohol use disorder - Drugs: History of marijuana use and possible history of other illegal substances. DEVELOPMENTAL AND SOCIAL HISTORY - Family Constellation/Environment: The patient is the younger of 2 children but was adopted into an [place] family. - Childhood Trauma: There is no apparent history of physical or sexual abuse. - Developmental milestones: The patient may have reached normal developmental milestones - Education: The patient was an adequate student in school and graduated from high school. 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 No children - Current Living: Most recently living in the basement of his elderly father. - Support: Disability income probably - Legal: No current legal difficulties. HISTORY - None. - Deployments: N/A - Combat Exposure: N/A - Blast Exposure: N/A SIGNIFICANT MEDICAL HISTORY PCP: None - Allergies: NKDA - Medical Problems: Necrotizing pancreatitis currently admitted for - Current Medications: See list above. - Herbals/Supplements: None known Meds Home Medications and Allergies Home Medications Medication Instructions Recorded Confirmed Type No Known Home Medications 01/17/21 01/17/21 History Allergies Allergy/AdvReac Type Severity Reaction Status Date / Time No Known Drug Allergies Allergy Verified 01/17/21 11:02 Review of Systems Review of Systems ROS: Yes unobtainable due to mental condition Exam Vital Signs (past 8 hours): - 01/21/21 11:34 01/21/21 15:00 Temperature 97.4 F L 96.8 F L Pulse Rate 102 H 111 H Respiratory Rate 18 14 Blood Pressure 106/72 97/73 Pulse Oximetry 97 96 Oxygen Delivery Method Room Air Oxygen Flow Rate 0 Narrative Exam Narrative: MENTAL STATUS EXAM * Appearance: The patient is an extremely thin cachectic male seen lying in his hospital bed. * Grooming: Dressed in hospital pajamas and clean, but with rodriguez and uncombed hair. * Behavior: Somewhat sedated, weak, often sleepy in appears barely aware. However cooperative. * Gait: Unable to ambulate, bed rid * Speech: Paucity of speech, low volume, minimal output. * Mood: ?Do not know? * Affect: Moderately dysphoric Congruent with content, normal range and reac tivity * Thought Process: Minimal, but somewhat linear and logical. * Thought Content: Denies hallucinations, delusions, and no suicidal or homicidal ideation, intent, or plan. * Attention: Somewhat attentive to the interview * Orientation: Oriented to person and city, but time and circumstance her somewhat unclear * Memory: Intact for interview, not formally tested * Insight: Poor * Judgment: Poor Objective Labs Result Diagrams: 01/21/21 05:02 01/21/21 05:02 Labs: Laboratory Results - last 24 hr 01/21/21 01/21/21 01/21/21 05:00 05:02 05:02 WBC 4.4 L RBC 2.95 L Hgb 10.4 L Hct 30.3 L MCV 102.9 H MCH 35.4 H MCHC 34.4 RDW 14.6 Plt Count 155 Neut % (Auto) 49.6 L Lymph % (Auto) 37.8 King % (Auto) 10.6 Eos % (Auto) 1.2 L Baso % (Auto) 0.8 Neut # (Auto) 2200 Lymph # (Auto) 1700 King # (Auto) 500 Eos # (Auto) 100 Baso # (Auto) 0 Sodium 136 L Potassium 3.8 Chloride 109 H Carbon Dioxide 25 BUN 7 L Creatinine 0.71 Estimated GFR > 60.0 BUN/Creatinine Ratio 9.9 Glucose 95 Calcium 8.3 L Phosphorus 2.5 Magnesium 1.4 L Total Bilirubin 0.7 Conjugated Bilirubin 0.0 Unconjugated Bilirubin 0.6 AST 40 ALT 17 Alkaline Phosphatase 81 Total Protein 5.0 L Albumin 2.1 L Globulin 2.9 Albumin/Globulin Ratio 0.7 L Lipase 100 D Assessment & Plan Assessment & Plan narrative: ASSESSMENT/MEDICAL DECISION MAKING Victor Hugo Graf is a 60-year-old man with a significant history of probable polysubstance use disorder and subsequent psychosis. Although we cannot rule rule out schizophrenia, it appears to be somewhat unlikely given his history of having been a fairly functional adult and able to hold down a regular job for many years as well as 2 marriages. It appears more likely that his psychotic symptoms relate in somewhat with substance use. Also included in differential is possible bipolar disorder or schizoaffective disorder. At this point, our path is to continue to treat possible psychotic symptoms with antipsychotic medication which may also help improve his ability to cooperate with nursing staff, begin refeeding, and improve medically. DIAGNOSES/PROBLEMS Psychotic disorder not otherwise specified RECOMMENDATIONS/PROBLEMS/TREATMENT GOALS/STATUS * Psychotic symptoms * Status: Not Stable * Goals: Eliminate, or greatly diminished, symptoms of psychosis, maintain at a stable baseline, and then monitor for relapse. COORDINATION OF CARE * Will continue to coordinate and follow-up with home team and social Work as appropriate. * Consults: No additional consult recommended at this time DIAGNOSTIC INTERVENTIONS RECOMMENDED * Imaging: None at this time. * Labs: None at this time * Psych testing: None at this time. MEDICATIONS * Increase olanzapine to 5 mg p.o. q.h.s. (discussed with Dr. Dodson earlier today.) FOLLOW UP * Will continue to follow up periodically along with you to assist in management of psychotic symptoms.
[2021-01-21] MEDS: OLANZapine 2.5 MG TABLET PO (20:55)
[2021-01-21] MEDS: FAMOTIDINE 20 MG/50 ML PIGGYBACK 200 MG IV (20:56)
--- NOTE | 2021-01-21 22:52 | PC.NURSE ---
PT WITH 2-3 SMALL LIQUID STOOLS THIS PM- TOOK SMALL AMOUNT OF PO AND WAS EASILY REDIRECTED THIS SHIFT- SPOKE TO HIS SISTER, NANDO ON THE PHONE AND ALSO HAD CONSULT BY DR. ZARCO AND RECEIVED NEW ORDER FOR OLANZAPINE PO AT HS WHICH HE TOOK WITHOUT DIFFICULTY- IVF CONTINUES TO INFUSE
[2021-01-22] MEDS: SODIUM CHLORIDE 0.9% 1,000 ML 50 ML IV (00:16)
[2021-01-22 03:39] VITALS: BP 100/70; PULSE 106; RESP 18; TEMP 36.5; O2SAT 96
[2021-01-22] MEDS: LORazepam 2 MG/ML INJ 1 MG IV ×2 (03:51→08:21)
--- NOTE | 2021-01-22 04:22 | PC.NURSE ---
Autopsy Pathologist Note-Patient is confused with labile mood, visual hallucinations, says I have to go over there to see what broke Attempt to reorient him. Became increasingly agitated and restless around 0400, IV Ativan given. Unsteady and uncooperative with 2 person assist to BSC, try to assist him with urinal, unable to comprehend, has been incontinent urine and smears stool. Bed alarm on, curtain open for constant obs by staff.
[2021-01-22] MEDS: MORPHINE 2 MG/ML INJ IV ×2 (05:55→08:21)
--- NOTE | 2021-01-22 08:19 | PC.NURSE ---
Addendum entered by Meghna Agosto R.N. 01/22/21 13:18: DR ZARCO TO ROUND ON PT AT THIS TIME Addendum entered by Meghna Agosto R.N. 01/22/21 12:35: pt more compliant with requests of staff and able to convey needs a bit clearer this afternoon- frequent trips to bsc but mostly post void - no bm yet this shift- reports being ready for lunch then wouldn't take a bite by himself- given one bite of mashed potatoes and he took it slowly and then promptly said I don't want to eat situated comfortably in bed - ivf d/c'd and saline/heparin locked midline Original Note: get outta here you bitches stated pt upon initial assessment- pt awoke quite agitated attempting to get up from bed- removing soiled brief and in a foul mood- pt would not be redirected this am - and even attempted to use bsc - but fpt would not sit down - medicated for pain and anxiety/agitation this am-
[2021-01-22] MEDS: NICOTINE 14 PATCH 14 MG TOP (08:21)
[2021-01-22] MEDS: ENOXAPARIN 30 MG/0.3 ML SYRINGE SUBCUT (08:22)
--- NOTE | 2021-01-22 09:22 | PT.IPTN ---
Current Diagnoses Acute pancreatitis with uninfected necrosis, unspecified (01/17/21) Physical Therapy Treatment Note M1 PT/OT-IP Prior Functional Status Start: 01/21/21 13:21 Freq: NEEDED Status: Active Protocol: Document 01/22/21 09:22 AW (Rec: 01/22/21 10:03 AW [id number]) Medical Review Prior Functional Status Medical History Reviewed Yes Communication Pt gave permission for PT to contact his sister, [place]. Per phone conversation with [place], pt is typically well- oriented. She states pt shared with her ~5 years ago his reality including voices in his head and paranoia. Mobility and Gait Pt is typically independent. According to his sister, he was ambulatory, able to assist his father around the house with yard work and cooking up until approximately last April. When visiting last Thursday, she observed the pt walking with a cane. It took him a while to get going but he could walk with the cane outside to the deck to smoke. She thinks he has been using a cane for two months due to increasing weakness. Activities of Daily Living and IADL's According to his sister, pt is normally independent with ADL 's and even assisted his father with cooking and yard work. Up until about two months ago, he was actively driving. Social History Household Members family Living Arrangements House Number of Floors (Floors) Two Floors Number of Stairs To Enter/Railing? Pt enters house through the garage and descends a flight of stairs with unilateral rail to the basement where he stays. There is a stair lift but pt has not used it. Home Equipment Straight Cane Additional Social History Comment PLOF obtained from pt's sister , [place], who lives in [place] (3 hours earlier than [place]). Pt gave permission for PT to contact both his sister and his father. Pt has lived with his father in [place] for ~8 years. M2 PT-IP Current Condition Start: 01/21/21 13:21 Freq: NEEDED Status: Active Protocol: Document 01/21/21 16:54 AW (Rec: 01/21/21 17:22 AW [id number]) Physical Therapy Current Condition Current Condition Evaluation Date 01/21/21 Treatment Diagnosis FTT; acute necrotizing pancreatitis; impaired mobility and gait Onset Date 01/17/21 M3 PT-IP Subjective Start: 01/21/21 13:21 Freq: NEEDED Status: Active Protocol: Document 01/22/21 09:22 AW (Rec: 01/22/21 10:03 AW [id number]) Subjective Physical Therapy Visit Type Type Treatment Note Visit Start Time 08:55 Visit Stop Time 09:22 Total Visit Minutes 27 Notes Co-tx with OT for safety due to pt frailty and high level of assist required. Extra time spent on the phone with pt's sister to verify PLOF. Number of LEASE BROKER Visits 0 Physical Therapy Visit Comments Patient Comments Pt is willing to participate with therapy. Therapy Pain Assessment Pain When Pain Assessed During Mobility Pain Present Pain Present Pain Reported FLACC Pain Scale Face Occasional grimace/frown Legs Normal position; relaxed Activity Squirming,shifting Cry Moans/whimpers/complains Consolability Reassurable with touch FLACC Total 4 M4 PT-IP Mobility and Gait Start: 01/21/21 13:21 Freq: NEEDED Status: Active Protocol: Document 01/22/21 09:22 AW (Rec: 01/22/21 10:03 AW [id number]) PT-Transfer Assessment Sit to and From Stand Sit to and from Stand Moderate Assistance,1 Person Assistance,Use of Upper Extremities Equipment Transfer Assistive Device Gait Belt,Front Wheeled Walker Orthotic/Prosthetic Devices or Brace: No Transfers Transfer Destination Chair,Bedside Commode Transfer Technique Stand Step Pivot Transfer Ability Level of Assist Maximum Assistance,1 Person Assistance,Use of Upper Extremities Comments Mobility Comments Pt was sitting up in the chair after transferring with nursing as PT arrived. He completed sit to stand mod A x 1 and stood with FWW for support 2 minutes before needing to sit. OT arrived. Pt agreed to stand again, requiring min A x 2, and used the FWW to ambulate mod A x 1 5 feet toward the sink. He requested to use the toilet. OT moved BSC into position and pt sat with cued use of hands to slow descent. Pt was unable to void or eliminate. Standing from the BSC took three slow attempts mod A x 2 but pt was unable to contact the walker frame each time. OT then moved chair into position next to BSC. PT provided max A x 1 to stand pivot transfer to the chair. Repositioning on the chair required max A x 2. Pt was left with tray and call light in front of him. Chair alarm was armed and curtain was left wide open for max visibility from nurse station. Gait Assessment Gait Gait Assistance Required: Moderate Assistance,2 Person Assist Distance (Feet) 5 Assistive Devices Assistive Device Front Wheeled Walker Orthotic/Prosthetic Devices or Brace: No Gait Deviations General Gait Pattern Antalgic,Ataxic,Decreased Stride Length,Decreased Feet Clearance,Flexed Trunk,Narrow Based Gait Factors Limiting Gait Function Factors Limiting Gait Function Decreased Activity Tolerance, Decreased Strength, Incoordination,Pain,Poor Balance,Poor Safety Awareness Comments Gait Comments Pt presents with shuffling gait requiring mod assist for weight shifting, max cues for safety and walker management. Stair Climbing Assessment Comments Stair Climbing Comments Not assessed. PT-Balance Assessment Sitting Balance and Reactions Static Sitting Balance Ability Fair Dynamic Sitting Balance Ability Poor Standing Balance and Reactions Static Standing Balance Ability Poor Dynamic Standing Balance Ability Poor Device Used FWW M5 PT-IP Objective Assessments Start: 01/21/21 13:21 Freq: NEEDED Status: Active Protocol: Document 01/21/21 16:54 AW (Rec: 01/21/21 17:22 AW [id number]) Orientation Orientation/Cognition Level of Alertness Confusional State Orientation Name Language Function Ability Hard of Hearing Safety Awareness Decreased Safety Awareness Memory Description Short Term Impaired,Woods Manager 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 Pt unable to bear weight with full knee or hip extension due to weakness. Sensation Assessment Comments Sensation Comments Unable to assess. Muscle Tone Muscle Tone WNL No Muscle Tone Location Bilateral Lower Extremity Type of Tone Hypotonicity Comments Muscle Tone Comments Pt cachectic and frail- appearing with clear muscle wasting and low tone. M6 PT-IP Treatment Start: 01/21/21 13:21 Freq: NEEDED Status: Active Protocol: Document 01/22/21 09:22 AW (Rec: 01/22/21 10:03 AW [id number]) Physical Therapy Treatment Education Education Provided Safety M7 PT-IP Assessment and Plan Start: 01/21/21 13:21 Freq: NEEDED Status: Active Protocol: Document 01/22/21 09:22 AW (Rec: 01/22/21 10:03 AW [id number]) PT Summary Assessment and Plan Summary Impairments Pain,Strength,Balance,Tone, Cognition,Bed Mobility, Transfers,Gait Progress Towards Goals Slow Progress due to Medical Issues,Slow Progress due to Activity Tolerance,Slow Progress - Other Assessment Summary Pt shows good effort with therapy but is limited by weakness, poor activity tolerance, and waxing/waning mentation. Pt required mod-max assist for all mobility during this session. Pt is well below reported baseline per his sister and will require SNF rehab. Per pt's sister, his 92 yo father is concerned about pt returning to the home as he is unable to provide the level of support currently required. Goals Bed Mobility Goal Standby Assistance Transfer Goal Minimal Assistance,Front Wheeled Walker Gait Goal Minimal Assistance,Front Wheel Walker Gait Distance 75 Days to Meet Goals 10 Frequency of Treatment Frequency Of Treatment Once a Day Treatment Plan Physical Therapy Treatment Plan Bed Mobility Training,Transfer Training,Gait Training, Therapeutic Exercise,Balance Retraining,Discharge Planning, Hot or Cold Pack,Neuromuscular Re-ed,Coordination Retraining Other Recommendations and Next Treatment mobility as tolerated; chair Focus follow for gait training with FWW Recommendations To Nursing Amount of Assist Needed 2 Person Assist Discharge Recommendations PT Discharge Recommendations SNF Rehab Transportation Needs at Discharge Wheelchair/Cabulance
--- NOTE | 2021-01-22 09:24 | OT.IP.EVAL ---
Current Diagnoses Acute pancreatitis with uninfected necrosis, unspecified (01/17/21) Past Medical History (Last Reviewed 01/17/21 @ 20:52 by Miguel A Lindsay MD) Psychosis Occupational Therapy Inpatient Evaluation/Re-Eval M1 PT/OT-IP Prior Functional Status Start: 01/21/21 13:21 Freq: NEEDED Status: Active Protocol: Document 01/22/21 10:53 [facility] (Rec: 01/22/21 11:09 [facility] [id number]) Medical Review Prior Functional Status Medical History Reviewed Yes Communication Pt gave permission for PT to contact his sister, [place]. Per phone conversation with [place], pt is typically well- oriented. She states pt shared with her ~5 years ago his reality including voices in his head and paranoia. Mobility and Gait Pt is typically independent. According to his sister, he was ambulatory, able to assist his father around the house with yard work and cooking up until approximately last April. When visiting last Thursday, she observed the pt walking with a cane. It took him a while to get going but he could walk with the cane outside to the deck to smoke. She thinks he has been using a cane for two months due to increasing weakness. Activities of Daily Living and IADL's According to his sister, pt is normally independent with ADL 's and even assisted his father with cooking and yard work. Up until about two months ago, he was actively driving. Social History Household Members family Living Arrangements House Number of Floors (Floors) Two Floors Number of Stairs To Enter/Railing? Pt enters house through the garage and descends a flight of stairs with unilateral rail to the basement where he stays. There is a stair lift but pt has not used it. Home Equipment Straight Cane Additional Social History Comment PLOF obtained from pt's sister , [place], who lives in [place] (3 hours earlier than [place]). Pt gave permission for PT to contact both his sister and his father. Pt has lived with his father in [place] for ~8 years. M2 OT-IP Current Condition Start: 01/22/21 10:52 Freq: Status: Active Protocol: Document 01/22/21 10:53 [facility] (Rec: 01/22/21 11:09 [facility] [id number]) Occupational Therapy Current Condition Current Condition Evaluation Date 01/22/21 Treatment Diagnosis Failure to thrive, acute necrotizing pancreatitis, decreased mobility Diagnosis Onset Date 01/17/21 M3 OT- IP Subjective and Pain Start: 01/22/21 10:52 Freq: Status: Active Protocol: Document 01/22/21 10:53 [facility] (Rec: 01/22/21 11:09 [facility] [id number]) OT- Subjective Occupational Therapy Visit Type Type Initial Evaluation Visit Start Time 09:00 Visit Stop Time 09:24 Total Visit Minutes 24 Occupational Therapy Visit Comments Patient Comments Pt already with PT and pt wanting to use the BSC. Patient/Caregiver Goals Pt did not states. OT Pain Assessment Pain When Pain Assessed At Rest Pain Present Pain Present Denied Pain M4 OT- IP ADL's Start: 01/22/21 10:52 Freq: Status: Active Protocol: Document 01/22/21 10:53 [facility] (Rec: 01/22/21 11:09 [facility] [id number]) OT [id number] Comments OT Self-Feeding Comments NOt at meal time. OT ADL-Grooming Comments OT Grooming Comments Not performed as pt got too tired. OT ADL-Dressing General Eval Lower Body Dressing Ability Maximum Assistance Areas Needing Assistance Underpants/Brief,Socks OT ADL-Toileting General Evaluation Toileting Ability Maximum Assistance Areas Needing Assistance Manage Clothing,Perform Perineal Hygiene Comments OT Toileting Comments MAX A X1 to stand and another for all clothing needs. OT ADL-Bathing Comments OT Bathing Comments NOt performed. M5 OT- IP IADL's Start: 01/22/21 10:52 Freq: Status: Active Protocol: Document 01/22/21 10:53 [facility] (Rec: 01/22/21 11:09 [facility] [id number]) OT-Instrumental Activities of Daily Living Home Safety Awareness Home Safety Comments At this time pt is confused, does not realize that he is in the hospital, needing increased time to respond to questions and time to initiate his movements. M6 OT- IP Functional Cognition Start: 01/22/21 10:52 Freq: Status: Active Protocol: Document 01/22/21 10:53 [facility] (Rec: 01/22/21 11:09 [facility] [id number]) Cognitive Factors Limiting Selfcare Function Cognitive Ability Level of Alertness Confusional State Patient Orientation Name Attention Span Ability Capable of Focused Attention, Unable to Sustain Attention Ability to Follow Commands Able to Follow One Step Commands with Increased Time, Able to Follow One Step Commands with Repetition Memory Description Short Term Impaired,Adapted Physical Education Aide Impaired,Working Impaired Problem Solving Ability Unable to Identify Errors, Needs Assist to Identify Solutions Cognitive Comments Cognitive Assessment Comments Pt mainly just orientated to name. Pt needing concrete simple step commands to follow , hand over hand assist for hand placement on the fww and to the recliner while lowering himself down. OT- Vision and Hearing OT- Vision Assessment Vision Assessment Comments NOt able to fully assess due to his decreased ability to follow directions at this time . M7 OT- IP Mobility and Balance Start: 01/22/21 10:52 Freq: Status: Active Protocol: Document 01/22/21 10:53 [facility] (Rec: 01/22/21 11:09 [facility] [id number]) OT-Transfer Assessment Sit to and From Stand Sit to and from Stand Minimal Assistance,Maximum Assistance,1 Person Assistance Transfers Transfer Ability Minimal Assistance,Moderate Assistance,Maximum Assistance, 1 Person Assistance,2 Person Assistance Technique Transfer Destination Bed,Bedside Commode Transfer Technique Stand Step Pivot Devices Transfer Assistive Devices None,Gait Belt,Front Wheeled Walker Comments Mobility Comments Initially pt able to stand from the recliner with CLARIBEL x1 and then as tiring needing MAX A X1 to stand and MAX A X 2 stand pivot from the BSC to recliner as getting tired. OT- Balance Assessment Sitting Balance and Reactions Static Sitting Balance Ability Fair Standing Balance and Reactions Static Standing Balance Ability Poor M8 OT- IP Objective Assessments Start: 01/22/21 10:52 Freq: Status: Active Protocol: Document 01/22/21 10:53 [facility] (Rec: 01/22/21 11:09 [facility] [id number]) OT Gross Range of Motion Upper Extremity Range of Motion Assessment Bilaterally Impaired OT Strength Upper Extremity Strength Assessment Bilaterally Impaired M9 OT- IP Assessment and Plan Start: 01/22/21 10:52 Freq: Status: Active Protocol: Document 01/22/21 10:53 [facility] (Rec: 01/22/21 11:09 [facility] [id number]) OT Summary Assessment and Plan Potential Rehabilitation Potential Fair Analytic Complexity at Evaluation High Summary OT Impairments Pain,Range of Motion,Strength, Balance,Coordination, Functional Cognition, Functional Mobility,Self- Feeding,Grooming,Dressing, Toileting,Bathing,Toilet Transfers,Shower Transfers, Activity Tolerance Progress Towards Goals Slow Progress due to Medical Issues,Slow Progress due to Activity Tolerance,Slow Progress due to Cognition Assessment Summary Pt high complexity due to prior was completely independent with all his needs and now needing extensive two person assist for ADL's, mobility, having trouble following directions, decreased initiation of movement and speech. Prior pt was living with his elderly dad who is not able to care for the pt at his current level of function. Pt will benefit from skilled rehab. Goals Self-Feeding Goal Independent Grooming Goal Independent Dressing Goal Independent Toileting Goal Independent Bathing Goal Independent Toilet Transfer Goal Independent Shower Transfer Goal Independent Days to Meet Goals 25 Frequency of Treatment Frequency Of Treatment Once a Day Treatment Plan OT Treatment Plan ADL Training,Functional Cognition Training,Functional Mobility,Patient/Family Education,Discharge Planning Other Treatment Recommendations and Next Standing at sink with MODA X 1 Treatment Focus for grooming needs. Discharge Recommendations OT Discharge Recommendations SNF Rehab Home Equipment Needs defer to SNF
[2021-01-22 09:35] VITALS: BP 89/61; PULSE 88; RESP 20; TEMP 36
--- NOTE | 2021-01-22 11:10 | DIET.PN ---
Dietary Progress Note RD check on on this patient with severe protein calorie malnutrition, refeeding syndrome, adult failure to thrive, and necrotizing pancreatitis. Pt was on calorie count through the weekend showing average intake of 300 kcals (17% EER) and 20g PRO (30% EER) each day. Though pts POs remain very low, pt is tolerating diet without signs of N/V. Per nursing, pt has had a few liquid stools concerning for constipation/impaction. Pt getting prn morphine and expresses abdominal discomfort frequently asking to use bathroom without void/elimination. Pt has needed Phos, K+ and Mg repletion through weekend for refeeding. Current values: K+ 3.8, phos 2.5, mg 1.4 L, lipase 100 Pt drowsy today, is able to tell RD he likes cashews and that he recently developed taste changes so he isnt drawn to many foods. Per PT note, pt has weakness, poor activity tolerance, severe muscle wasting with hypotonicity. MNA:5 malnourished Tim:18 c stage 1 pressure sore on coccyx Nutrition Diagnosis: Severe Acute on Chronic PCM r/t inability to tolerate oral intake aeb 58% unintentional weight loss in 6mo (severe), BMI 13.5 (severe), severe cachexia, pt has had N/V x6mo leading him to quit etoh and unable to tolerate POs. Pts body weight has increased from 42.7kg to 50.9kg in 4d, however, BMI remains severe at 16.1 and pt is -50% UBW in 6mo, severe. Interventions: 1. Pt diet advanced to general without special pancreas precautions. Goal for pt to tolerate and meet 75% EERs through PO intake via food and ONS supplements in order to replete nutrition status and help c deconditioning. 2. Will continue calorie count. Will be conservative c kcal levels today but push for good protein intake. Pt lunch today will be 1/2 portion teriyaki chicken c mashed potatoes (pro powder added). RD and room service to work c pt to identify preferred foods/ONS and increase kcals conservatively secondary to refeeding, however we are likely outside of critical refeeding window today. Monitoring/Evaluations: daily weights, POs, associated labs, PT reports, following daily
[2021-01-22 13:09] VITALS: BP 97/66; RESP 20; TEMP 36.8; O2SAT 99
--- NOTE | 2021-01-22 13:19 | PM.PN.1 ---
Subjective Subjective Date Patient Seen: 01/22/21 Interval history: The patient is a 60-year-old male who was admitted to the hospital for acute necrotizing pancreatitis. The patient has undiagnosed psychiatric disorder, in addition he has severe protein calorie malnutrition. Patient was started on Zyprexa last evening at the request of Dr. Prakash ( psychiatry) patient was noted to be agitated this morning and received Ativan and morphine and has been somewhat lethargic. He is not complaining of pain. He was tolerating a full liquid diet. He has been seen by speech in his diet will be advanced accordingly. Exam Vital Signs (past 8 hours): - 01/22/21 09:35 01/22/21 13:09 Temperature 96.8 F L 98.2 F Pulse Rate 88 Respiratory Rate 20 20 Blood Pressure 89/61 L 97/66 Pulse Oximetry 99 Oxygen Delivery Method Room Air Oxygen Flow Rate 0 Narrative Exam Narrative: Ill-appearing emaciated male lying in bed Lungs: Clear to auscultation Cardiac exam regular rate and rhythm normal S1-S2 Abdomen: Soft nontender nondistended Extremities: No edema Objective Labs Result Diagrams: 01/21/21 05:02 01/21/21 05:02 [facility] Medical History Psychosis Social History household members: family Smoking Status: Current every day smoker alcohol intake: never Assessment & Plan Assessment & Plan narrative: 60-year-old male admitted to the hospital with severe necrotizing pancreatitis, complicated by paranoid delusions likely from underlying schizophrenia. 1. Acute necrotizing pancreatitis, present on admission. -Patient presents with severe weight loss, wbc 3.0, nausea, and abdominal pain. Endorses abdominal pain for years prior to admission. -CT scan confirms: emphesema, nectrotizing pancreatitis, with 2 small loculated peripancreatic fluid collections likely representing acute necrotic collections. There is mild pancreatic duct dilation, but no bilary ductal dilation, small gallstones in the gall bladder fundus identified -lipase elevated at 466 on admission, repeated this AM and it is 100 after initiation of meals. -patient hypotensive but normal lactate and afebrile, no evidence of organ failure -will continue IV hydration today but decreased amount, antiemetics, and pain medication -MRCP with biliary sludge but no obstruction seen. Appreciate surgical consultation by Dr. Lindsay, no surgical interventions at this time given his frailty. -abdominal pain after clears started yesterday evening, improved pain with oxycodone but slight confusion. Reduced dosing with some improvement in this. Unclear if psychiatric condition is contributing toward his malnutrition as well, have asked psychiatry today for assistance, Dr. Prakash. -advanced diet -discontinue IV morphine, continue oxycodone as needed 2. Severe protein calorie malnutrition -patient is emaciated and cachectic, albumin is 2.9, he has a BMI of 13.5 -patient is at high risk for refeeding syndrome -PICC line held given clinical improvement initially. Should he have uncontrolled abdominal pain with meals will need to start TPN. -given the patient's significant weight loss he is at high risk for morbidity and mortality -TTE with a normal EF and no evidence of cardiomyopathy. -continue to advance diet as tolerated 3. Tobacco dependence -patient was counseled to discontinue smoking -continue nicotine patch. 4. Probable schizophrenia versus other psychosis -patient is calm currently, intermittently agitated, expressed delusions on admission and intermittent auditory hallucinations. Unknown chronicity. -psychiatry called today, Dr. Prakash to consult as discussed above. -Zyprexa started at 2.5 last night, will increase to 5 mg at night, decrease Ativan 0.5 mg IV as needed agitation 5. Hypokalemia, acute, improved -continue to monitor. patient continues to require repletion of potassium 6. Hyponatremia, improved. - continue to monitor closely. 7. Hypovolemic shock, resolved. - patient requiring levophed to maintain adequate perfusion. Likely in setting of hypovolemia and severe malnutrition, active inflammation from necrotizing pancreatitis. - improved with IV Fluids and levophed, now weaned off. 8. Elevated troponin, improved. - suspect related to demand in setting of hypovolemic shock. Peaked with initial lab value at .106 and downtrended. No complaints of chest pain. - TTE as noted above. 9. Hypophosphatemia, acute - secondary to refeeding. Continue to replete as needed Status: remains inpatient. Disposition unclear as is timing. Suspect prolonged admission for his pancreatitis and supplemental nutrition. Can start PT/OT today. Quality VTE Deep Vein Thrombosis/Pulmonary Embolism Present on Admission: No
[2021-01-22] MEDS: LORazepam 2 MG/ML INJ 0.5 MG IV (15:36)
[2021-01-22 16:16] VITALS: BP 127/79; PULSE 109; RESP 18; TEMP 36.3; O2SAT 100
[2021-01-22 19:10] VITALS: BP 99/60; PULSE 111; RESP 18; TEMP 36.4; O2SAT 98
[2021-01-22] MEDS: FAMOTIDINE 20 MG TABLET PO (21:05)
[2021-01-22] MEDS: OLANZapine 2.5 MG TABLET 5 MG PO (21:07)
[2021-01-23 00:38] VITALS: BP 110/67; PULSE 115; RESP 16; TEMP 36.3; O2SAT 95
--- NOTE | 2021-01-23 02:36 | PC.NURSE ---
Addendum entered by Estefania Tarango R.N. 01/23/21 06:01: Patient rested quietly from 0430 to 0530 after IM Zyprexa given at 0400, then woke at 0530 putting legs over rails attempting multiple times to get out of bed and cursing at staff when we were at bedside. Constantly covering him with blankets and checking for incontinence. Addendum entered by Estefania Tarango R.N. 01/23/21 03:09: 0300-Unable to give IV Ativan, patient too combative and had pulled midline out. DIRECTOR OF PROGRAM MANAGEMENT called to room to witness patient's behavior, 1x dose IM Zyprexa ordered. Patient moves in bed slowly, but unable to exit, and is less agitated and verbally aggressive when left alone, staff is giving him space to deescalate, remains in continuous obs. Original Note: Plant Floor Automation Manager Notes-Upon assessment at 0030, patient was drowsy and confused but calm, cooperative, and making simple needs known. Requested coffee with rum in it, then grinned, brief changed at that time, denies pain. 0230-Patient woke up, taking his gown, socks, and brief off, when I entered the room he said get out of here bitch and would not allow me to assist him, became combative. Attempted to deescalate, reorient, and reassure him, unable to. Bed alarm on, curtain open for staff to observe, IV Ativan given.
--- NOTE | 2021-01-23 03:10 | PM.EVENT ---
Event Note Date Patient Seen: 01/23/21 Time Patient Seen: 03:10 Event Note: Patient reported to me to be very agitated. He apparently took off all his clothes and pulled out his midline. He is written for IM olanzapine 5 mg, but nursing did not feel it helped at all. He will be written for IM ativan if needed. Requested nurse to call me if they needed a one-time order and to limit interactions with him to the extent they could safely do so.
[2021-01-23] MEDS: OLANZapine 10 MG VIAL 5 MG IM (03:40)
[2021-01-23 03:46] VITALS: BP 110/58; PULSE 118; RESP 18; TEMP 35.9; O2SAT 94
[2021-01-23 07:34] VITALS: BP 105/67; PULSE 104; RESP 17; TEMP 36.2; O2SAT 100
--- NOTE | 2021-01-23 09:18 | OT.IP.TRT ---
Current Diagnoses Acute pancreatitis with uninfected necrosis, unspecified (01/17/21) Occupational Therapy Treatment Note M2 OT-IP Current Condition Start: 01/22/21 10:52 Freq: Status: Active Protocol: Document 01/22/21 10:53 [facility] (Rec: 01/22/21 11:09 [facility] [id number]) Occupational Therapy Current Condition Current Condition Evaluation Date 01/22/21 Treatment Diagnosis Failure to thrive, acute necrotizinf pancreatitis, decreased mobility Diagnosis Onset Date 01/17/21 M3 OT- IP Subjective and Pain Start: 01/22/21 10:52 Freq: Status: Active Protocol: Document 01/23/21 09:21 [facility] (Rec: 01/23/21 09:29 [facility] [id number]) OT- Subjective Occupational Therapy Visit Type Type Treatment Note Visit Start Time 08:30 Visit Stop Time 09:18 Total Visit Minutes 48 Occupational Therapy Visit Comments Patient Comments Pt up with nursing and walking in the room when OT arrived. Patient/Caregiver Goals Pt not able to states a goal. M4 OT- IP ADL's Start: 01/22/21 10:52 Freq: Status: Active Protocol: Document 01/23/21 09:21 [facility] (Rec: 01/23/21 09:29 [facility] [id number]) OT [id number] Comments OT Self-Feeding Comments Pt inconsistent to bring cup to his mouth, appears to do better with his left hand today. Pt only took one bite of oatmeal and states not hungry. OT ADL-Grooming Comments OT Grooming Comments Pt refused to do grooming needs. OT ADL-Oral Care General Eval Areas of Assistance Managing Dentures Comments Oral Care Comments Pt needing vc for orientation of dentures and after increased time able to get into his mouth. OT ADL-Dressing General Eval Lower Body Dressing Ability Maximum Assistance Areas Needing Assistance Underpants/Brief,Pants/Shorts Comments OT Dressing Comments Pt not wanting to put pants on as trying to walk out of the room. MODA X 2 to stand while another asisst to get hospital pants on the pt. M6 OT- IP Functional Cognition Start: 01/22/21 10:52 Freq: Status: Active Protocol: Document 01/23/21 09:21 [facility] (Rec: 01/23/21 09:29 [facility] [id number]) Cognitive Factors Limiting Selfcare Function Cognitive Ability Level of Alertness Confusional State Patient Orientation Name Attention Span Ability Unable to Focus,Unable to Sustain Attention Ability to Follow Commands Able to Follow One Step Commands with Increased Time, Able to Follow One Step Commands with Repetition Memory Description Short Term Impaired,Vamp Creaser Impaired,Working Impaired Safety Awareness Underestimates Need for Assistance Problem Solving Ability Unable to Identify Errors, Needs Assist to Identify Solutions Cognitive Comments Cognitive Assessment Comments Pt mainly just orientated to name today. Pt talking but not making sense. Pt insistent that he is able to get up and move on his own and refusing assist. Pt has poor insight to his needs, unaware that he is in the hospital and thinks he is in the purgatory. M7 OT- IP Mobility and Balance Start: 01/22/21 10:52 Freq: Status: Active Protocol: Document 01/23/21 09:21 [facility] (Rec: 01/23/21 09:29 [facility] [id number]) OT-Transfer Assessment Sit to and From Stand Sit to and from Stand Standby Assistance Transfers Transfer Ability Minimal Assistance,Moderate Assistance,1 Person Assistance ,2 Person Assistance Technique Transfer Destination Bedside Commode,Chair Transfer Technique Stand Step Pivot Devices Transfer Assistive Devices Gait Belt Comments Mobility Comments Pt getting up on his own and use of table,counter, bed, wall for balance and from one person CLARIBEL to MODA X 2 to able to walk in his room and hallway. Pt requiring more assist when tiring as tends to lean backwards. OT- Balance Assessment Sitting Balance and Reactions Static Sitting Balance Ability Good Dynamic Sitting Balance Ability Fair Standing Balance and Reactions Static Standing Balance Ability Poor Dynamic Standing Balance Ability Poor Comments Other Balance Tests/Deviations/Treatment Decreased standing, especially : with when standing and tiring and tends to lean backwards with no awareness for correction. M8 OT- IP Objective Assessments Start: 01/22/21 10:52 Freq: Status: Active Protocol: Document 01/22/21 10:53 [facility] (Rec: 01/22/21 11:09 [facility] [id number]) OT Gross Range of Motion Upper Extremity Range of Motion Assessment Bilaterally Impaired OT Strength Upper Extremity Strength Assessment Bilaterally Impaired M9 OT- IP Assessment and Plan Start: 01/22/21 10:52 Freq: Status: Active Protocol: OT Summary Assessment and Plan Potential Rehabilitation Potential Fair Analytic Complexity at Evaluation High Summary OT Impairments Pain,Range of Motion,Strength, Balance,Coordination, Functional Cognition, Functional Mobility,Self- Feeding,Grooming,Dressing, Toileting,Bathing,Toilet Transfers,Shower Transfers, Activity Tolerance Progress Towards Goals Slow Progress due to Medical Issues,Slow Progress due to Activity Tolerance,Slow Progress due to Cognition Assessment Summary Pt high complexity due to prior was completely independent with all his needs and now needing extensive two person assist for ADL's, mobility, having trouble following directions, decreased initiation of movement and speech. Prior pt was living with his elderly dad who is not able to care for the pt at his current level of function. Pt will benefit from skilled rehab. Pt able to move better today however decreased insight to needs and needing more1:1 assist today. Goals Self-Feeding Goal Independent Grooming Goal Independent Dressing Goal Independent Toileting Goal Independent Bathing Goal Independent Toilet Transfer Goal Independent Shower Transfer Goal Independent Days to Meet Goals 25 Frequency of Treatment Frequency Of Treatment Once a Day Treatment Plan OT Treatment Plan ADL Training,Functional Cognition Training,Functional Mobility,Patient/Family Education,Discharge Planning Other Treatment Recommendations and Next Standing at sink with MODA X 1 Treatment Focus for grooming needs. Discharge Recommendations OT Discharge Recommendations SNF Rehab Home Equipment Needs defer to SNF
[2021-01-23] MEDS: NICOTINE 14 PATCH 14 MG TOP (09:30)
[2021-01-23] MEDS: ENOXAPARIN 30 MG/0.3 ML SYRINGE SUBCUT (10:04)
--- NOTE | 2021-01-23 10:11 | DIET.PN ---
Dietary Progress Note RD f/u regarding this patient with Severe Protein Calorie Malnutrition. Upon advancement to General diet, pt consumed 2 bites of mashed potatoes for lunch Thursday and 25% of an ONS Ensure Enlive at dinner. Pt consumed 0% breakfast this morning. Kitchen to continue sending up variety General trays c ONS options for continued food offering and to identify any items which may be preferred by this patient. Pt remains Full Code with TPN an option, however, pt pulled out midline this am, so pt at high risk for stopping nutrition support.
--- NOTE | 2021-01-23 11:15 | PT.IPTN ---
Current Diagnoses Acute pancreatitis with uninfected necrosis, unspecified (01/17/21) Physical Therapy Treatment Note M2 PT-IP Current Condition Start: 01/21/21 13:21 Freq: NEEDED Status: Active Protocol: Document 01/21/21 16:54 [facility] (Rec: 01/21/21 17:22 [facility] [id number]) Physical Therapy Current Condition Current Condition Evaluation Date 01/21/21 Treatment Diagnosis FTT; acute necrotizing pancreatitis; impaired mobility and gait Onset Date 01/17/21 M3 PT-IP Subjective Start: 01/21/21 13:21 Freq: NEEDED Status: Active Protocol: Document 01/23/21 10:54 [facility] (Rec: 01/23/21 13:12 [facility] [id number]) Subjective Physical Therapy Visit Type Type Treatment Note Visit Start Time 10:54 Visit Stop Time 11:15 Total Visit Minutes 21 Notes Nurse in room throughout tx. Number of SERVICE WRITER ADVISOR Visits 1 Physical Therapy Visit Comments Patient Comments pt willing to work with therapy. Patient Goals Unable to ascertain Therapy Pain Assessment Pain Present Pain Present Denied Pain M4 PT-IP Mobility and Gait Start: 01/21/21 13:21 Freq: NEEDED Status: Active Protocol: Document 01/23/21 10:54 [facility] (Rec: 01/23/21 13:12 [facility] [id number]) PT-Bed Mobility Assessment Rolling Type of Rolling Roll to Right,Roll to Left Level of Assist Moderate Assistance,1 Person Assistance Sit to Supine Sit to Supine Minimal Assistance Scooting Scooting to Edge of Bed Moderate Assistance PT-Transfer Assessment Sit to and From Stand Sit to and from Stand Moderate Assistance,1 Person Assistance,Use of Upper Extremities Equipment Transfer Assistive Device Gait Belt Orthotic/Prosthetic Devices or Brace: No Transfers Transfer Destination Bed,Toilet Transfer Technique pt ambulated using FWW Transfer Ability Level of Assist Moderate Assistance,Maximum Assistance,1 Person Assistance ,Use of Upper Extremities Comments Mobility Comments Pt was seated at EOB with nursing when arrived. Pt able to form sensibile words, 50% of the time subject not always made sense. eg spoke of acrlic plastic after he mentioned waffle cushion to soft. sit>stand Mod A x1 from EOB, ambulated to bathroom Mod-Max A with support at trunk due to lean and FWW assist repositioning during turns. Static standing Mod A and assisted with brief mgt. Stand>sit with hand over hand max cuing for grasp grab bar and other on FWW Mod A slow descent to toilet. Max A sit> stand and SHISHMAREF IRA cuing for hand placement, assist brief mgt in standing Min A for standing balance. Pt ambulated back to bed with max cuing for body and fWW assist positioning Mod - Max A. SHISHMAREF IRA assisst for reaching back and mod A for slow descent. sit>supine Min A for LE support into bed. Pt log roll R and L Mod A, nurse reposition waffle cushion under pelvis for safety skin integrity. Pt had call light and all needs in reach, bed alarmed. Gait Assessment Gait Gait Assistance Required: Moderate Assistance,Maximum Assistance,1 Person Assist Distance (Feet) 10 Assistive Devices Assistive Device Front Wheeled Walker Orthotic/Prosthetic Devices or Brace: No Gait Deviations General Gait Pattern Antalgic,Ataxic,Decreased Stride Length,Decreased Feet Clearance,Flexed Trunk,Lateral Trunk Lean,Narrow Based Gait Factors Limiting Gait Function Factors Limiting Gait Function Decreased Activity Tolerance, Decreased Strength, Incoordination,Pain,Poor Balance,Poor Safety Awareness Comments Gait Comments Pt continues a shuffle gait required Mod- Max A with support at trunk to assist wt shifting, max cuing for bigger steps and support for fWW mgt . Stair Climbing Assessment Comments Stair Climbing Comments Not assessed. PT-Balance Assessment Sitting Balance and Reactions Static Sitting Balance Ability Fair Dynamic Sitting Balance Ability Fair Standing Balance and Reactions Static Standing Balance Ability Poor Dynamic Standing Balance Ability Poor Device Used FWW M5 PT-IP Objective Assessments Start: 01/21/21 13:21 Freq: NEEDED Status: Active Protocol: Document 01/21/21 16:54 [facility] (Rec: 01/21/21 17:22 [facility] [id number]) Orientation Orientation/Cognition Level of Alertness Confusional State Orientation Name Language Function Ability Hard of Hearing Safety Awareness Decreased Safety Awareness Memory Description Short Term Impaired,Supervisor Vegetable Farming 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 Pt unable to bear weight with full knee or hip extension due to weakness. Sensation Assessment Comments Sensation Comments Unable to assess. Muscle Tone Muscle Tone WNL No Muscle Tone Location Bilateral Lower Extremity Type of Tone Hypotonicity Comments Muscle Tone Comments Pt cachectic and frail- appearing with clear muscle wasting and low tone. M6 PT-IP Treatment Start: 01/21/21 13:21 Freq: NEEDED Status: Active Protocol: Document 01/23/21 10:54 [facility] (Rec: 01/23/21 13:12 [facility] [id number]) Physical Therapy Treatment Education Education Provided Safety M7 PT-IP Assessment and Plan Start: 01/21/21 13:21 Freq: NEEDED Status: Active Protocol: Document 01/23/21 10:54 [facility] (Rec: 01/23/21 13:12 [facility] [id number]) PT Summary Assessment and Plan Potential Rehabilitation Potential Fair Status of Condition at Evaluation Evolving Summary Impairments Pain,Strength,Balance,Tone, Cognition,Bed Mobility, Transfers,Gait Progress Towards Goals Slow Progress due to Medical Issues,Slow Progress due to Activity Tolerance,Slow Progress - Other Assessment Summary Pt shows good effort with therapy but is limited by weakness, poor activity tolerance, and waxing/waning mentation. See 01/22 tx notes for home set up. Pt required Mod- Max A x1 during mobility using FWW, min-Mod A during bed mobilitiy and max cuing w/ SHISHMAREF IRA for sequencing safety. Pt would benefit from continued skilled therapy to improve strength and functional mobility. Recommending SNF at this time. Will continue to follow progress. Goals Bed Mobility Goal Standby Assistance Transfer Goal Minimal Assistance,Front Wheeled Walker Gait Goal Minimal Assistance,Front Wheel Walker Gait Distance 75 Days to Meet Goals 10 Frequency of Treatment Frequency Of Treatment Once a Day Treatment Plan Physical Therapy Treatment Plan Bed Mobility Training,Transfer Training,Gait Training, Therapeutic Exercise,Balance Retraining,Discharge Planning, Hot or Cold Pack,Neuromuscular Re-ed,Coordination Retraining Other Recommendations and Next Treatment mobilitiy as tolerated, chair Focus follow for gait training with FWW further distances than room. Recommendations To Nursing Amount of Assist Needed 1 Person Assist Discharge Recommendations PT Discharge Recommendations SNF Rehab Transportation Needs at Discharge Wheelchair/Cabulance
[2021-01-23 11:25] VITALS: BP 102/74; PULSE 97; RESP 16; TEMP 36.1; O2SAT 100
[2021-01-23 15:10] VITALS: BP 109/76; PULSE 107; RESP 20; TEMP 36.3; O2SAT 93
--- NOTE | 2021-01-23 15:48 | CM.DPNOTE ---
SNF Planning: SW faxed to the following SNF's to start placement process of SNF under Comfort Measures: [facility]- fax line was busy, did not seem to go through [facility]- faxed referral and called admissions and left vm requesting review [facility]- faxed referral and called admissions and left requesting review [facility]- faxed referral [facility]- faxed referral and called admissions and they received fax and will review this evening [facility]- faxed referral Plan: SW to follow for above SNF's review and to send additional referrals to [facility] SNF's as pt's behaviors can be a barrier to SNF acceptance. LELE Diaz
--- NOTE | 2021-01-23 16:43 | CM.DPC ---
DCP/continued: Reviewed EMR. Per provider/Dr. Dodson palliative consult will be ordered for patient today. Notes indicate patient refusing medical care and will not eat/drink. PICC line pulled out by patient. Note left from patient's Father/Tha requesting that all matters involving patient be directed to patient's sister/Ronel Catalan ph# [phone] (resides in [place]). MICROCOMPUTER SUPPORT SPECIALIST placed call to sister today. She reports that she has spoken with Dr. Dodson re: next steps. Dr. Dodson indicates patient unable to make medical decisions today due to malnutrition and being agitated. Therefore, sister agreeable. Palliative consult ordered for this afternoon. Sister reports that she is agreeable to have patient placed on hospice if needed. Sister reports that patient's Father unable to care for patient at time of d/c. Sister agreeable to SNF for comfort measures and then private pay room/board with hospice. Sister plans to discuss with Father this evening. Sister does report that family can cover room/board expenses for short amount of time but not long-term. Sister aware that at this time it is unclear when patient's body with shut down? Nutrition will plan significant role. CM team faxed clinical to multiple places for review. [facility] unable to accept. P: Patient needing placement for comfort/hospice care. LELE Veras
--- NOTE | 2021-01-23 17:01 | P.CONS_ITS ---
History of Present Illness Consult details Date Patient Seen: 01/23/21 Time Patient Seen: 17:01 Chief complaint: FTT Reason for consult: Palliative Medicine Consultation Requesting provider: Christiane Dodson Narrative: Reason for Consultation Palliative medicine consultation received from Dr. Dodson regarding this 60-year-old gentleman who presented to the emergency room after EMS was activated by his sister who was visiting 01/17/2021 for what she described as severe abdominal pain that had been worsening since 2019, dramatic weight loss of approximately 130lbs since that time, and weakness. Patient resides in [place] with his frail, elderly father. Sister was visiting from [place] and has since returned home. Patient exhibited some paranoid thoughts in the ER, talking about the FBI, but also stating that he needed some medical help from a doctor. Pt was noted to be anemic and his WBCs suppressed (WBC 3.6, RBC 3.33 Hgb 11.6, HCT 33.6 Plt 154). His PT was elevated 13.6. Hyponatremic (Na 128) and severely hypokalemic (K 2.2), Cl 80. Renal function consistent with dehydration (BUN 27 Creat 1.10). Note to be profoundly protein calorie malnourished (albumin 2.9) and his lipase elevated at 466. CT of abdomen and pelvis: IMPRESSION: 1. Findings compatible with necrotizing pancreatitis as described with 2 small loculated associated peripancreatic fluid collections likely representing acute necrotic collections. Mild pancreatic duct dilatation also demonstrated in the pancreatic body and tail. Follow-up is recommended to demonstrate resolution and exclude an un derlying mass. 2. No biliary ductal dilatation. 3. Small calcified gallstones in the gallbladder fundus with mild nonspecific enhancement of the gallbladder wall . No definite gallbladder wall thickening or peripancreatic fluid. If there is clinical suspicion for cholecystitis, further evaluation may be obtained with ultrasound. 4. Segmental gastric wall thickening in the antrum likely representing reactive changes secondary to adjacent pancreatitis. Nonspecific hyperemia in the gastric wall may also be reactive. Patient was admit to the ICU at [facility] for aggressive treatment of his necrotizing pancreatitis. He is volume replete, electrolytes replaced. He continues to suffer from delusions and hallucinations, responds to internal stimuli, and is generally paranoid of staff members. His PO intake is poor, and pt has refused PO intake, the medical team believes this is partially due to his underlying longstanding mental illness and have consulted psychiatry. Trial of Olanzipine initiated, however, this has not helped patient's oral intake. The medical team expresses concern that this unfortunate gentleman may succumb to the effects of his longstanding mental illness if he continues to refuse food and fluids, and seeks clarification of goals of care with the patient's family, as it is clear that the patient is unable to make medical decisions for himself at this time. Past Medical History: Psychiatric disorder with hallucinations and delusions, untreated. Social History: Pt resides with his father in [place]. He has been disabled and unable to w ork for most of his life due to mental illness. He has generally avoided medical care for many years, and his most recent medical provider, Dr. Fernández, has informed the patient's attending provider that he was fired from the patient's case several years ago. His father has abdicated decision making to the patient's sister Georgia who resides in [place]. Sister reports that the patient has suffered from hallucination and delusions lifelong and that he has made statements to her that he wishes the voices would just stop. Because of the patient's profound general decline in clinical status over months, frailty evident by weakness, frequent falls, inability to provide of nidia quate self care, severe malnutrition (dramatic, unintentional weight loss, fatigue, lethargy) and given the possibility of an underlying, incurable medical illness, the medical team is of the belief that life expectancy is limited to days to weeks, and has requested clarification of this gentleman's specific medical goals. Attending physician has requested palliative medicine to assist in furthering conversation with patient and family regarding the complex and sensitive medical issues of the perceived benefits/burdens of continued life prolonging treatments, realistic prognosis, perspectives on and dying, priority in clinical care and burden of physical, emotional and spiritual symptoms for patient and family. I have reviewed the medical record, radiographs, diagnostics, attempted to interview the patient (disoriented, no registration) and subsequently interviewed the patient DPOAHC. The following aspects are pertinent, current and remote medical history, social/emotional and family dynamics, current medications and effects, ROS, examination findings, prognosis, care planning, goal setting. Meds Home Medications and Allergies Home Medications Medication Instructions Recorded Confirmed Type No Known Home Medications 01/17/21 01/17/21 History Allergies Allergy/AdvReac Type Severity Reaction Status Date / Time No Known Drug Allergies Allergy Verified 01/17/21 11:02 Review of Systems Review of Systems ROS: Yes unobtainable due to mental status Exam Vital Signs (past 8 hours): - 01/23/21 11:25 Temperature 97.0 F L Pulse Rate 97 H Respiratory Rate 16 Blood Pressure 102/74 Pulse Oximetry 100 Oxygen Delivery Method Room Air Oxygen Flow Rate 0 Narrative Exam Narrative: Cachectic 60 year old man who appears at least a decade older than his reported age is visited at bedside, he is struggling to stand, is very tremulous and weak, resistant to assistance from the SPINE NURSE who is attempting to help him. He is obviously distressed and states his wish tht he want to be left alone. Const General: acute distress (psychological) and ill appearing Nutritional Appearance: underweight Psych Appearance: disheveled Speech and Movement: delayed speech Mood: paranoid Affect: hostile Attitude: belligerent and avoids eye contact Thought Process: illogical, perseverating and tangential Thought Content: delusions and hallucinations Judgment: poor Objective Labs Result Diagrams: 01/21/21 05:02 01/21/21 05:02 Assessment & Recommendations A & R narrative: Discussion: Patient is unable to participate in MDM. TC to patient's sister Georgia to discuss this consultation. Georgia relates the patient's longstanding past medical history of his unmedicated psychiatric condition, and that for as long as she can remember he has suffered from hearing voices that he has just wanted peace from. She is in receipt of the information that despite the psychiatric recommendations of medications, her brother continues to refuse oral intake of food and fluids. She is aware that his life is limited unless aggressive therapies such as AJCOB by way of the GI tract are implemented. Long discussion with her about her brother's quality of life, and how he and her father want his life to look from here, considering he is so resistant to medical treatment. At this time, she chooses to de-escalate her brother's code status to DNAR and wishes to implement comfort care for her brother, removing all aggressive and intrusive measures that are causing him such distress, such as lines and tubes. She is aware that the social workers are working on placement for this gentleman in some sort of facility where his basic needs can be attended, and that a local custodial, Bryn Slater, has declined his admission. Discussion about community based hospice agency, their focus on comfort and peace, support of family members as well a the patient, services provided. She requests a hospice consult at this time. Discussed completion of a [facility] POLST in preparation for discharge, and she feels her father will be willing to sign this document, but she will do this remotely if necessary. Communicated the outcome of this palliative medicine consultation to the medical team and to delinquency prevention social worker. Impression: - Acute necortizing pancreatitis - improving - Anorexia - Cachexia - Severe protein calorie malnutrition - Paranoid Schizophrenia - hallucinations - Palliative Medicine Consultation - Coding: To remain informed regarding current treatment opportunities, provider reviewed extensive additional documentation of multiple treatment providers/facilities which was utilized to update the management plan. Total time in review of additional medical information is 12 minutes, external to in person evaluation. Time in assessment and management of acute and chronic medical diagnoses, pertinent history to palliative medicine decision making, discussion and management of clinical findings enumerated above as well as fears regarding the transition to a more end of life plan and and dying is 22 minutes, more than half of which is necessary for education and counseling. Advanced Care Planning discussion time is 10 minutes. The patient currently lacks testamentary documents for estate planning, DPOAHC and lacks POLST and statement of wishes. Dialogue addresses patient preferences at the end/near end of life including resuscitation wishes (no CPR, DNAR). Additional care limits discussed above.
--- NOTE | 2021-01-23 17:56 | PC.NURSE ---
Addendum entered by Misti Gan R.N. 01/23/21 21:25: Made 2 separate attempts to give patient dose of Zyprexa, spent 15 minutes at each attempt to talk patient about his medication and reassure him about it but he was adamant that he would not take it and said no several times. Will notify hospitalist and NOC shift. Original Note: Shift note: Alert to self, name and town of residence. Refused physical assessment from this RN. Can make needs known, but are not reasonable needs (asked to speak to police for his father's phone number). Patient refused this RN to do skin assessment. Patient refused auscultation of lung sounds. Did not appear to be in respiratory distress. Saturating WNL on RA. Patient refused to allow auscultation of heart sounds. VSS. Does not appear to be in cardiac distress. Patient refused to allow auscultation of bowel sounds. C/o abdominal pain and nausea w/o vomiting. PASTRY MIXER stated that patient was tender to palpation during exam from MD. Patient did not want to eat dinner and tried to use his dinner knife to dismantle his bed. Removed metal utensils and end of bed from patient's room. PASTRY MIXER as 1:1 for patient's safety.
[2021-01-24] MEDS: OLANZapine 2.5 MG TABLET 7.5 MG PO ×2 (00:57→22:24)
--- NOTE | 2021-01-24 01:07 | PC.NURSE ---
Called to patient room as patient confused and wanting to talk to the supervisor advice. Patient relating he needed so sleep and was anxious. Patient agreed to take Zyprexa. HS dose given per EMAR. Patient assisted back to bed after 15 minutes of conversation. Patient took meds without difficulty. Primary RN, Ronald Blackwell updated on medication and return of patient to bed.
--- NOTE | 2021-01-24 01:10 | PC.NURSE ---
01/24/2021 @ 0050 PAtient sitting up in chair. I asked patient if I may do his VS patient stated no. Patient refused VS. Sitter at chairside and reported to Johanna Blackwell RN
[2021-01-24 05:21] VITALS: RESP 12
[2021-01-24] MEDS: NICOTINE 14 PATCH 14 MG TOP (08:53)
--- NOTE | 2021-01-24 11:27 | PC.NURSE ---
Patient woke up agitated this morning at beginning of shift. Refusing care or physical assessment. Patient has assigned patient animal care technician with him for safety. Patient is very unsteady on feet, frail, and tires easily. Refused breakfast, only taking in sips of water. Attempted to medicate patient for pain in his abdomen, but refused to take medications once they were brought to him. Patient now back in bed and fell asleep with a warm blanket. Haldol ordered x1 not given at this time as patient was able to sit back down and try to rest. Will continue to follow, per MD plan of care is comfort and looking for hospice care upon discharge.
--- NOTE | 2021-01-24 11:59 | PT-IP ANOTE ---
Addendum entered and electronically signed by Dennise Marcos, PT 01/24/21 13:52: OT discussed with hospitalist who indicated therapy should discharge orders as hospice plan is unfolding. Original Note: Checked on pt twice this AM who was sleeping both times. Per RN, pt was quite agitated this AM and now has a 1:1 attendant. Palliative care has been consulted. POC is unclear at this point. Will consult hospitalist for direction on further intervention. Holding treatment this AM.
--- NOTE | 2021-01-24 12:47 | OT.IPNOTE ---
Per Dr. Dodson okay to discharge pt from therapy services as going on Hospice.
[2021-01-24] MEDS: fentaNYL 25 MCG/PATCH TOP (14:48)
[2021-01-24 15:15] VITALS: BP 96/70; PULSE 110; RESP 22; TEMP 36.2; O2SAT 100
--- NOTE | 2021-01-24 15:28 | PM.PN.1 ---
Subjective Subjective Date Patient Seen: 01/24/21 Interval history: Patient continues to be intermittently agitated. Complains of pain however he refuses to take any oral medications. In passive care consultation obtained yesterday. Plans are underway for possible hospice placement Exam Vital Signs (past 8 hours): - 01/24/21 15:15 Temperature 97.1 F L Pulse Rate 110 H Respiratory Rate 22 Blood Pressure 96/70 Pulse Oximetry 100 Oxygen Delivery Method Room Air Oxygen Flow Rate 0 Narrative Exam Narrative: Cachectic ill-appearing male Lungs: Decreased breath sounds but clear to auscultation Cardiac exam: Regular rate and rhythm normal S1-S2 Abdomen soft mildly tender nondistended Extremities: Objective Labs Result Diagrams: 01/21/21 05:02 01/21/21 05:02 [facility] Medical History Psychosis Social History household members: family Smoking Status: Current every day smoker alcohol intake: never Assessment & Plan Assessment & Plan narrative: Acute necrotizing pancreatitis, present on admission. -Patient presents with severe weight loss, wbc 3.0, nausea, and abdominal pain. Endorses abdominal pain for years prior to admission. -CT scan confirms: emphesema, nectrotizing pancreatitis, with 2 small loculated peripancreatic fluid collections likely representing acute necrotic collections. There is mild pancreatic duct dilation, but no bilary ductal dilation, small gallstones in the gall bladder fundus identified -lipase elevated at 466 on admission, repeated this AM and it is 100 after initiation of meals. -patient hypotensive but normal lactate and afebrile, no evidence of organ failure -will continue IV hydration today but decreased amount, antiemetics, and pain medication -MRCP with biliary sludge but no obstruction seen. Appreciate surgical consultation by Dr. Lindsay, no surgical interventions at this time given his frailty. -abdominal pain after clears started yesterday evening, improved pain with oxycodone but slight confusion. Reduced dosing with some improvement in this. Unclear if psychiatric condition is contributing toward his malnutrition as well, have asked psychiatry today for assistance, Dr. Prakash. -advanced diet -discontinue IV morphine, continue oxycodone as needed -patient is refusing oral intake -fentanyl 25 mcg Q 72 hours has been written 2. Severe protein calorie malnutrition -patient is emaciated and cachectic, albumin is 2.9, he has a BMI of 13.5 -patient is at high risk for refeeding syndrome -PICC line held given clinical improvement initially. Should he have uncontrolled abdominal pain with meals will need to start TPN. -given the patient's significant weight loss he is at high risk for morbidity and mortality -TTE with a normal EF and no evidence of cardiomyopathy. -continue to advance diet as tolerated -following discussion with Samantha cornell from Palliative care patient will be transition to hospice at discharge 3. Tobacco dependence -patient was counseled to discontinue smoking -continue nicotine patch. 4. Probable schizophrenia versus other psychosis -patient is calm currently, intermittently agitated, expressed delusions on admission and intermittent auditory hallucinations. Unknown chronicity. -psychiatry called today, Dr. Prakash to consult as discussed above. -Zyprexa started at 2.5 last night, will increase to 5 mg at night, decrease Ativan 0.5 mg IV as needed agitation 5. Hypokalemia, acute, improved -continue to monitor. patient continues to require repletion of potassium 6. Hyponatremia, improved. - continue to monitor closely. 7. Hypovolemic shock, resolved. - patient requiring levophed to maintain adequate perfusion. Likely in setting of hypovolemia and severe malnutrition, active inflammation from necrotizing pancreatitis. - improved with IV Fluids and levophed, now weaned off. 8. Elevated troponin, improved. - suspect related to demand in setting of hypovolemic shock. Peaked with initial lab value at .106 and downtrended. No complaints of chest pain. - TTE as noted above. 9. Hypophosphatemia, acute - secondary to refeeding. Continue to replete as needed Quality VTE Deep Vein Thrombosis/Pulmonary Embolism Present on Admission: No
[2021-01-24] MEDS: OXYCODONE IR 5 MG TABLET 2.5 MG PO (15:56)
--- NOTE | 2021-01-24 16:30 | DIET.PN ---
Dietary Progress Note Pt transitioning to hospice care. Kitchen sending up general diet with variety to spur pts PO intake, however formal nutrition interventions including calorie count have been stopped. Pt free to consume ONS as desired if preferred.
--- NOTE | 2021-01-24 22:25 | PC.NURSE ---
Shift note: Spent quite about half an hour trying to educate patient into taking bedtime dose of Zyprexa. Patient agreed to one tablet at time of administration after agreeing to taking whole dose. Charted as unscheduled due to previous dose charted on nov. Patient has been resting most of shift and has not had any urine output. Any attempts to encourage him to void, or participate in most care activities results in agitation and suspicion. Do not want to increase agitation at this time.
[2021-01-25 00:35] VITALS: BP 119/66; PULSE 98; RESP 16; TEMP 36.3; O2SAT 100
--- NOTE | 2021-01-25 01:06 | PC.NURSE ---
Sitter at bedside, pt initially sleeping at start of noc shift, woke up pleasantly around 0030. Pt willing to allow RN FLOAT to obtain VS, pt appears to be resting comfortably.
--- NOTE | 2021-01-25 02:07 | PC.NURSE ---
0050 Pt. declined to take the remaining dosage of his Zyprexa. States I'm okay right now, denies any pain. Will cont. POC & monitor.
[2021-01-25 04:34] VITALS: BP 99/58; PULSE 105; RESP 20; TEMP 36.8; O2SAT 100
[2021-01-25] MEDS: OLANZapine 2.5 MG TABLET 7.5 MG PO (04:38)
--- NOTE | 2021-01-25 04:42 | PC.NURSE ---
Pt. awake & agreed to take his Zyprexa remaining 5 mg. Up sitting in the recliner drinking his coffee. Chair alarm connected to his sweatshirt. Will monitor.
--- NOTE | 2021-01-25 06:04 | PC.NURSE ---
Pt OOB in room with chair alarm sounding. Patient with 1:1 sitter present. Pt states, I don't want to be tied up anymore. Patient making reference to chair alarm. Patient stating, I want to go to the front door and go to [place]. Patient is unsteady on feet, but increased agitation noted with attempts to steady patient. Patient agreed to return to chair, if chair alarm was not tethering him. Patient agreed to allow Jeramie chase, to sit in room with him to watch television with him. Primary RN, Hilda, given report on current interventions.
[2021-01-25 08:32] VITALS: BP 100/69; PULSE 90; RESP 17; TEMP 36.4; O2SAT 99
[2021-01-25] MEDS: NICOTINE 14 PATCH 14 MG TOP (11:06)
--- NOTE | 2021-01-25 11:56 | PC.NURSE ---
Pt alert this a.m. 0x1 cooperative with staff without any behavior outburst. He reports minimal pain however denies medication this a.m. VSS, afebrile RA. Appetite poor. Sitter remains as patient with unsteady gait. Restful this a.m. Sister called for status update. Per SW and CM plan for discharge when bed available.
--- NOTE | 2021-01-25 12:15 | CM.DPNOTE ---
Addendum entered by LELE Castillo 01/25/21 16:09: [facility]No VM from [facility] at [facility]; they cannot accept at this time, but request another call if patient's behaviors stabilize or care needs change P#[phone] Original Note: DCP Update Faxed updated clinicals to [facility]. Spoke to [facility] in admissions re: this referral. [facility] explained: 1. [facility] is meant to serve those who are imminently dying and length of stay is not expected to exceed one or two weeks and 2. they do not have the staff available to admit anyone w/behavioral outbursts or unpredictable behavior 3. [facility] covers the Hospice service, room and board is $305 per day out of pocket, foundation $ might be available for those who cannot pay Relayed above to Dr Dodson, who plans to discuss increasing patient's Zyprexa w/ psychiatrist Dr Rene Placed call to the following places: [facility]- No [facility]- No beds [facility]- Cannot accept someone on comfort measures at this time [facility]- Reviewing [place]- [facility]- [facility]- Then placed call to sister Georgia, updated on above and asked if she would consider flying back to [place] to take patient home to her father's w/hospice service? This IRONER HAND suggested that patient might be the most comfortable and compliant at home. Georgia will consider this option, she cannot fly to [place] from [place] right away. Georgia agreeable to info visit from [facility] via phone. Faxed clinical to [facility] and [facility] w/the referral team reviewing this referral. This IRONER HAND will continue to search for SNF placement for hospice. [facility] Mamadou states patient has had a very good day, calm, compliant and grateful for care. LELE Castillo
[2021-01-25] MEDS: OXYCODONE IR 5 MG TABLET 2.5 MG PO (14:04)
[2021-01-25 15:40] VITALS: BP 92/55; PULSE 104; RESP 17; TEMP 36.5; O2SAT 99
--- NOTE | 2021-01-25 16:06 | P.PN_ITS ---
Subjective Subjective Date Patient Seen: 01/25/21 Interval history: Patient is a 60-year-old male who was admitted to the hospital with necrotizing pancreatitis and acute psychosis. He continues at time to be confused, agitated, and uncooperative. Patient's medications will be switch fro m Zyprexa tablets to oral dissolvable Zyprexa with the hopes that the patient will be more cooperative in taking the medication addition he has a pain patch which has been applied. He continues to complain of abdominal pain and has minimal oral intake. Exam Vital Signs (past 8 hours): - 01/25/21 08:32 01/25/21 15:40 Temperature 97.5 F L 97.7 F Pulse Rate 90 104 H Respiratory Rate 17 17 Blood Pressure 100/69 92/55 L Pulse Oximetry 99 99 Oxygen Delivery Method Room Air Oxygen Flow Rate 0 Narrative Exam Narrative: Cachectic emaciated male who is ill-appearing Lungs: Steam Generating Powerplant Mechanic breath sounds but clear to auscultation Cardiac exam rhythm normal S1 S2 Abdomen: Scaphoid, soft, mildly tender to palpation diffuse Extremities: No edema HEENT: Patient has bitemporal wasting, dry mucous membranes, poor skin turgor Objective Labs Result Diagrams: 01/21/21 05:02 01/21/21 05:02 [facility] Medical History Psychosis Social History household members: family Smoking Status: Current every day smoker alcohol intake: never Assessment & Plan Assessment & Plan narrative: Acute necortizing pancreatitis - improving -patient currently has a pain patch in place -he continues to complain of pain but refuses oral medications -diet is advanced as tolerated - Anorexia Likely related to underlying psychiatric illness - Cachexia - Severe protein calorie malnutrition -patient is encouraged to take oral intake which he continues to refuse. His severe protein calorie malnutrition is increasing his morbidity And mortality -patient is not eating or drinking sufficient, result he is preterminal, and likely will within days to weeks depending on his intake - Paranoid Schizophrenia -baseline, will continues on at 10 mg daily, consider titration of medication if the patient continues to be agitated - hallucinations Quality VTE Deep Vein Thrombosis/Pulmonary Embolism Present on Admission: No
[2021-01-25 20:05] VITALS: BP 96/65; PULSE 95; RESP 16; TEMP 37.1; O2SAT 100
[2021-01-25] MEDS: OLANZapine ODT 10 MG TAB PO (20:55)
--- NOTE | 2021-01-25 21:04 | PC.NURSE ---
Addendum entered by Gui Forte CNA 01/25/21 21:30: After taking the set of vitals, I asked Nichole to get an ice pack for the patients nose, which she did. I placed the ice pack on the bridge of the patients nose and forehead. Original Note: Around 20:40 while monitoring two patients (in rooms 206 and 207), I was in room 206 trying to get the continuous pulse Oximeter to work for the respiratory therapist who was also in the room. Before I went in to room 206, I saw that the patient in room 207 was asleep and snoring slightly. The respiratory therapist left the room and I went next door at around 20:43 to check back on the patient in room 207. It was at that time that I saw him on the floor with his back to the door holding onto the footboard of the bed. I went out into the menendez to get help and saw Luly down the menendez, I yelled for her to get help for a fallen patient. When I went back into the room, I went around to front of the patient, and at that point saw that there was smeared blood on the floor, and he had struck the bridge of his nose and his forehead and both were bleeding. Myra and Chris came into the room at 20:45 to help get the patient off the floor. I put a gait on the patient and Chris and I were able to get him up and back into the bed. I then instructed Nichole the DOUGH CUTTING MACHINE OPERATOR to get a set of vitals, which I recorded on the wipe board on 20:52. When the patient was asked the reason he got out of bed, he replied with an unintelligible reply.
[2021-01-25 23:25] VITALS: BP 106/68; PULSE 105; RESP 18; TEMP 37.1; O2SAT 99
[2021-01-26 07:00] VITALS: BP 94/62; PULSE 101; RESP 13; TEMP 36; O2SAT 100
[2021-01-26 11:00] VITALS: BP 85/58; PULSE 93; RESP 13; TEMP 36.6; O2SAT 100
--- NOTE | 2021-01-26 13:42 | P.PN_ITS ---
Subjective Subjective Date Patient Seen: 01/26/21 Time Patient Seen: 13:42 Interval history: Patient is a 60-year-old male who was admitted to the hospital with necrotizing pancreatitis and acute psychosis. He continues at time to be confused, agitated, and uncooperative although thus far today he has been better and more cooperative. He continues to complain of abdominal pain and has minimal oral intake, intermittently improved abdominal pain. Remains on 2.5 mg oxycodone as needed. No nausea or vomiting today. Tolerating minimal intake. Exam Vital Signs (past 8 hours): - 01/26/21 07:00 01/26/21 11:00 Temperature 96.8 F L 97.8 F Pulse Rate 101 H 93 H Respiratory Rate 13 13 Blood Pressure 94/62 85/58 L Pulse Oximetry 100 100 Oxygen Delivery Method Room Air Oxygen Flow Rate 0 Narrative Exam Narrative: Gen: Ill-appearing emaciated cachectic male lying in bed HEENT: Severe bitemporal wasting, pale, oropharynx reveals moist membranese today, neck is supple without adenopathy, no thyromegaly Lungs: Decreased breath sounds but clear to auscultation bilaterally Cardiac exam: Regular rate and rhythm normal S1-S2 Abdomen: Scaphoid. Soft, nontender, minimal distension. Extremities: No edema Neuro exam: Patient is awake and answers questions appropriately, cooperative he is able to move all extremities Psychiatric exam: flat affect, guarded, limited verbal responses. Objective Labs Result Diagrams: 01/21/21 05:02 01/21/21 05:02 [facility] Medical History Psychosis Social History household members: family Smoking Status: Current every day smoker alcohol intake: never Assessment & Plan Assessment & Plan narrative: 60-year-old male admitted to the hospital with severe necrotizing pancreatitis, complicated by paranoid delusions likely from underlying schizophrenia. 1. Acute necrotizing pancreatitis, present on admission, improving -Patient presented with severe weight loss, wbc 3.0, nausea, and abdominal pain. Endorses abdominal pain for years prior to admission. -CT scan confirms: emphesema, nectrotizing pancreatitis, with 2 small loculated peripancreatic fluid collections likely representing acute necrotic collections. There is mild pancreatic duct dilation, but no bilary ductal dilation, small gallstones in the gall bladder fundus identified -lipase elevated at 466 on admission, repeated and was 100 after initiation of meals. -patient hypotensive but normal lactate and afebrile, no evidence of organ failure -MRCP with biliary sludge but no obstruction seen. Appreciate surgical consultation by Dr. Lindsay, no surgical interventions at this time given his frailty. -fentanyl 25 mcg Q 72 hours has been written, continue oxycodone 2.5 mg prn. -continue diet as tolerated. 2. Severe protein calorie malnutrition -patient is emaciated and cachectic, albumin is 2.9, he has a BMI of 13.5 -patient is at high risk for refeeding syndrome -PICC line held given clinical improvement initially. -given the patient's significant weight loss he is at high risk for morbidity and mortality -TTE with a normal EF and no evidence of cardiomyopathy. -continue to advance diet as tolerated -following discussion with Samantha cornell from Palliative care patient will be transition to hospice at discharge 3. Tobacco dependence -patient was counseled to discontinue smoking -continue nicotine patch. 4. Paranoid schizophrenia -patient is calm currently, intermittently agitated, expressed delusions on admission and intermittent auditory hallucinations. Unknown chronicity. -Appreciate Dr. Prakash's consultation, time and recommendations. -continue olanzapine 10 mg at night. 5. Hypokalemia, acute, resolved 6. Hyponatremia, resolved 7. Hypovolemic shock, resolved. - patient requiring levophed to maintain adequate perfusion. Likely in setting of hypovolemia and severe malnutrition, active inflammation from necrotizing pancreatitis. - improved with IV Fluids and levophed, now weaned off. 8. Elevated troponin, improved. - suspect related to demand in setting of hypovolemic shock. Peaked with initial lab value at .106 and downtrended. No complaints of chest pain. - TTE as noted above. 9. Hypophosphatemia, acute - secondary to refeeding initially, now resolved. Dispo: unclear if SNF or discharge home on hospice. timing unclear. Code: DNR, plan for hospice consultation on discharge as noted above. Quality VTE Deep Vein Thrombosis/Pulmonary Embolism Present on Admission: No
--- NOTE | 2021-01-26 13:45 | PC.NURSE ---
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 States he forgets his sisters name, when discussed with him about talking to his sister in [place]. Pt slightly hypotensive this shift. Denies dizziness, SOB, n/v or abdominal pain today. He declines oral care, and bathing as well as getting out of bed. He refused changing clothes and skin assessment. Breakfast intake 45% and lunch 25% intake. Sleeping in between meals. No behavior outbursts this shift.
--- NOTE | 2021-01-26 14:45 | CM.DPC ---
Ongoing SNF planning: Per MD, pt continues to be medically stable and taking just enough oral intake to remain stable and not imminent. Per RN, pt has been mostly calm and cooperative but refusing most care and eating a little and sleeping in between meals and has taken his Zyprexa and no signs of agitation. Pt did have unwitnessed fall last night and injured bridge of his nose. SNF's previously referred to for placement: [facility]- [facility]- [facility] beds [facility]- Cannot accept someone on comfort measures at this time [facility]- Reviewing [facility]- Returned msg, will try to review today but no current openings for 3-[address] [facility] [place]- [facility]- decline due to pt's behaviors and not showing signs of being imminent CHLOÉ made these new SNF referrals today: [facility]: [facility]- faxed, left msg [facility]- faxed but they are not accepting new admissions due to COVID exposure at the facility [facility]- faxed and spoke to admissions and they will review [facility]- faxed but full this weekend so follow up with call to them Thursday [facility]- faxed and left msg requesting review [facility]- faxed and they will review Mon as no admissions over w/. [facility]: [facility]- faxed, will try to review this evening. No admissions staff on Sundays [facility]- faxed and admissions will review. [facility]- faxed and left msg requesting review. [facility]- faxed but no admissions staff on w/e so will need to call on Thursday. [facility]: CHLOÉ called pt's sister and left msg updating on the additional SNF's that were faxed in [place] and [place] and inquired if Hospice Info visit occurred towards determining if no SNF can be found if it would be realistic for her to fly back from [place] towards taking pt home [facility]. CHLOÉ requested call back with update from her. CHLOÉ called [facility] and spoke to Lanie who confirms referral was received but does not appear that Hospice Info Visit has been completed yet but will update CHLOÉ when it does and is on the list to happen with sister hopefully today sometime later. Plan: SW to follow closely for the many SNF's reviewing and with sister regarding Hospice Info Visit and plan if no SNF is secured. LELE Diaz
[2021-01-26 15:20] VITALS: BP 90/58; PULSE 85; RESP 13; TEMP 36.5; O2SAT 99
[2021-01-26 20:36] VITALS: BP 101/71; PULSE 89; RESP 14; TEMP 36.6; O2SAT 99
[2021-01-26] MEDS: OLANZapine ODT 10 MG TAB PO (21:25)
[2021-01-26 23:59] VITALS: BP 106/65; PULSE 102; RESP 14; TEMP 36.8; O2SAT 98
[2021-01-27] MEDS: LORazepam 0.5 MG TABLET PO (03:10)
--- NOTE | 2021-01-27 03:24 | PC.NURSE ---
Pt. was asleep for over 2 hrs. The he woke up around 0235 went to used the bathroom, he was combative. He went outside his room, very unsteady gait. Tried to support him by holding his arm, but he got very agitated. States don't touch me, explained to him that we don't want him to fall. Then he hit me & states don't touch me & leave me alone. DAMEON Miramontes notified ordered 0.5 mg. of Lorazepam PO which he took & swallowed the pill. Still does not want to stay in bed, he up ambulating in the hallway. Very difficult to redirect or convince him to stay in bed for his safety. ocean lifeguard, coordinator & FACILITY ADMINISTRATOR tried to get him to go back to his room. Very high fall risks & not compliant with safety measures ie; wear a gait belt, use of wheel chair & even to hold his arm for support. Will monitor.
--- NOTE | 2021-01-27 04:52 | PC.NURSE ---
Patient was asleep for approximately 2 hours. Woke up agitated,and went to the bathroom. Patient started to walk on the menendez way. Caregiver asked patient if she can place the gait belt on his waist,and use the front wheel walker. He refused and got agitated and combative. loom checker and his nurse had to call for more help. Other nurses,coordinator ,and security came to help. Patient went to empty rooms,unstable on his feet that nurses had to use the wheel chair to sit patient down. Took him to his room, refused to stay and walked toward nurses station and went to room 1,lay down on bed for almost 10 minutes and finally got him to get up,sat him down on the wheel chair and took him back to bed.
--- NOTE | 2021-01-27 05:31 | PC.NURSE ---
Pt. finally settled down & sleeping since 349, noted order for BMP series starts today. DAMEON Miramontes notified with the order for lab draw this morning. She ordered not to wake up patient for the blood draw & DAMEON Miramontes stated do not let lab draw his blood this morning & will talk to the doctor, he's comfort care. MATERIALS BRANCH CHIEF 1:1 sitter made aware not to let senior search marketing analyst wake up patient for a blood draw. Will cont. POC & monitor.
[2021-01-27 08:26] VITALS: BP 106/55; PULSE 102; RESP 19; TEMP 37; O2SAT 99
[2021-01-27] MEDS: OXYCODONE IR 5 MG TABLET 2.5 MG PO (08:56)
[2021-01-27 09:20] LABS: BUN Creatinine Ratio 14.5 (6-22); Blood Urea Nitrogen 11 mg/dL (9-20); Carbon Dioxide 26 mmol/L (22-32); Chloride 105 mmol/L (98-107); Estimated Glomerular Filt Rate > 60.0 mL/min (>60); Glucose 121 mg/dL (80-110); HEMOLYSIS 24 (0-50); Sodium 136 mmol/L (137-145)
[2021-01-27 12:00] VITALS: BP 89/63; PULSE 90; RESP 18; TEMP 36.8; O2SAT 99
[2021-01-27] MEDS: fentaNYL 25 MCG/PATCH TOP (12:07)
--- NOTE | 2021-01-27 14:09 | CM.DPC ---
DCP LTC planning: Per RN, pt with some agitated behaviors overnight but seems to be calm and cooperative so far today. Pt has continued to eat some of his meals and stable. CHLOÉ attempted to call multiple SNF's that were faxed yesterday but no admissions staff working today Thursday. CHLOÉ called pt's sister [place] and discussed the many SNF's that were faxed yesterday but the specific barriers to acceptance including pt's behaviors last night, being medically stable and not imminent, somewhat exit seeking/fall risk and that SNF may not be appropriate placement or ability to find an accepting SNF. CHLOÉ also discussed that [facility] would only cover under comfort care for max of 7 days and then at least $300 a day private pay after that. CHLOÉ discussed that pt is medically stable and not appropriate for hospital level of care at this time and medical justification needed to keep pt in the hospital. CHLOÉ provided information regarding Memory Care Units (locked facilities and able to manage behaviors) and home with Hospice and PP [facility]. Sister acknowledges understanding and her desire for pt to have better quality of life and states she is willing to make phone calls on Memory Units and PP [facility] agencies towards gathering information to determine if either are viable options. CHLOÉ emailed the list of multiple local Memory Care units and PP [facility] agencies and strongly requested she begin placing calls today. [place] confirms that she has not yet had [facility] call for Info Visit. CHLOÉ called [facility] again and left msg requesting phone info visit today. Plan: SW to follow in the morning with calling the multiple SNF's that new referrals were faxed to yesterday as well as follow up with sister regarding calls to Hospice, Memory Care, and PP [facility] agencies. LELE Diaz
--- NOTE | 2021-01-27 14:21 | PC.NURSE ---
pt was more oriented pt knows date, time, year, where he at, name and his birthday. Pt was asking when can he get out pt want to smoke outside upset because he cannot go outside to smoke. Pt was very happy to saw his Father pt said his less worried now. Offer a shower pt said he will think about it.
--- NOTE | 2021-01-27 14:30 | PM.PN.1 ---
Subjective Subjective Date Patient Seen: 01/27/21 Time Patient Seen: 14:30 Interval history: Patient is a 60-year-old male who was admitted to the hospital with necrotizing pancreatitis and acute psychosis. He continues at time to be confused, agitated, and uncooperative although thus far today he has been better and more cooperative. He continues to have intermittent abdominal pain, improved today and had improved dietary intake today. Remains on 2.5 mg oxycodone as needed. No nausea or vomiting today. Working on possible discharge options given complex social situation and medical needs. Exam Vital Signs (past 8 hours): - 01/27/21 08:26 01/27/21 12:00 Temperature 98.6 F 98.3 F Pulse Rate 102 H 90 Respiratory Rate 19 18 Blood Pressure 106/55 L 89/63 L Pulse Oximetry 99 99 Oxygen Delivery Method Room Air Oxygen Flow Rate 0 Narrative Exam Narrative: Gen: Ill-appearing emaciated cachectic male lying in bed HEENT: Severe bitemporal wasting, pale, oropharynx reveals moist membranese today, neck is supple without adenopathy, no thyromegaly Lungs: Decreased breath sounds but clear to auscultation bilaterally Cardiac exam: Regular rate and rhythm normal S1-S2 Abdomen: Scaphoid. Soft, nontender, minimal distension. Extremities: No edema Neuro exam: Patient is awake and answers questions appropriately, cooperative he is able to move all extremities Psychiatric exam: flat affect, guarded, limited verbal responses. Objective Labs Result Diagrams: 01/21/21 05:02 01/27/21 09:00 Labs: Laboratory Results - last 24 hr 01/27/21 09:00 Sodium 136 L Potassium 3.0 L Chloride 105 Carbon Dioxide 26 BUN 11 Creatinine 0.76 Estimated GFR > 60.0 BUN/Creatinine Ratio 14.5 Glucose 121 H Calcium 8.0 L PFS Medical History Psychosis Social History household members: family Smoking Status: Current every day smoker alcohol intake: never Assessment & Plan Assessment & Plan narrative: 60-year-old male admitted to the hospital with severe necrotizing pancreatitis, complicated by paranoid delusions likely from underlying schizophrenia. 1. Acute necrotizing pancreatitis, present on admission, improving -Patient presented with severe weight loss, wbc 3.0, nausea, and abdominal pain. Endorses abdominal pain for years prior to admission. -CT scan confirms: emphesema, nectrotizing pancreatitis, with 2 small loculated peripancreatic fluid collections likely representing acute necrotic collections. There is mild pancreatic duct dilation, but no bilary ductal dilation, small gallstones in the gall bladder fundus identified -lipase elevated at 466 on admission, repeated and was 100 after initiation of meals. -patient hypotensive but normal lactate and afebrile, no evidence of organ failure -MRCP with biliary sludge but no obstruction seen. Appreciate surgical consultation by Dr. Lindsay, no surgical interventions at this time given his frailty. -fentanyl 25 mcg Q 72 hours has been written, continue oxycodone 2.5 mg prn. -continue diet as tolerated. 2. Severe protein calorie malnutrition -patient is emaciated and cachectic, albumin is 2.9, he has a BMI of 13.5 -patient is at high risk for refeeding syndrome -PICC line held given clinical improvement initially. -given the patient's significant weight loss he is at high risk for morbidity and mortality -TTE with a normal EF and no evidence of cardiomyopathy. -continue to advance diet as tolerated -following discussion with Samantha cornell from Palliative care patient will be transition to hospice at discharge 3. Tobacco dependence -patient was counseled to discontinue smoking -continue nicotine patch. 4. Paranoid schizophrenia -patient is calm currently, intermittently agitated, expressed delusions on admission and intermittent auditory hallucinations on admission. Unknown chronicity. -Appreciate Dr. Prakash's consultation, time and recommendations. -continue olanzapine 10 mg at night. 5. Hypokalemia, acute, resolved 6. Hyponatremia, resolved 7. Hypovolemic shock, resolved. - patient required levophed initially to maintain adequate perfusion. Likely in setting of hypovolemia and severe malnutrition, active inflammation from necrotizing pancreatitis. - improved with IV Fluids and levophed, now weaned off. 8. Elevated troponin, improved. - suspect related to demand in setting of hypovolemic shock. Peaked with initial lab value at .106 and downtrended. No complaints of chest pain. - TTE as noted above. 9. Hypophosphatemia, acute - secondary to refeeding initially, now resolved. Dispo: unclear if SNF or discharge home on hospice. Multiple social work issues to work through regarding assistance at home vs terminal computer operator care given patient's current medical needs. Code: DNR, plan for hospice consultation on discharge as noted above. Quality VTE Deep Vein Thrombosis/Pulmonary Embolism Present on Admission: No
[2021-01-27 15:34] VITALS: BP 120/70; PULSE 95; RESP 16; TEMP 36.4; O2SAT 99
[2021-01-27 19:13] VITALS: BP 136/94; PULSE 93; RESP 14; TEMP 36.3; O2SAT 100
[2021-01-27] MEDS: OLANZapine ODT 10 MG TAB PO (20:44)
--- NOTE | 2021-01-27 23:04 | PC.NURSE ---
Pt. was agreeable with transferring with me, until I tried to use a gait belt. Pt. walked to bathroom a few times, but did not like me standing by to check on him. He ate 25% of meal and ate some crackers later on.
[2021-01-27 23:25] VITALS: BP 111/66; PULSE 95; RESP 16; O2SAT 96
--- NOTE | 2021-01-28 00:47 | PC.NURSE ---
Pt. sound asleep at this time, will assess when he wakes up. Will monitor & continue plan of care.
--- NOTE | 2021-01-28 01:30 | PC.NURSE ---
Pt. woke up & ambulated to the BR. Calmed & cooperative at this time. Declined any pain medication, states I'm okay right now. Will monitor.
--- NOTE | 2021-01-28 03:27 | PC.NURSE ---
Patient is currently resting in bed. He has been up to the bathroom frequently throughout the nigt, complaining that they keep playing games that is making him pee so often.
--- NOTE | 2021-01-28 05:16 | PC.NURSE ---
Patient continues to complain about they who wont let him sleep, and make him go to the bathroom constantly. Currently patient is resting in bed watching television.
[2021-01-28] MEDS: OXYCODONE IR 5 MG TABLET 2.5 MG PO ×2 (05:28→07:59)
[2021-01-28 07:38] VITALS: RESP 17
[2021-01-28] MEDS: NICOTINE 14 PATCH 14 MG TOP (08:02)
--- NOTE | 2021-01-28 08:13 | PC.NURSE ---
Addendum entered by Meghna Agosto R.N. 01/28/21 15:27: discharged plan is 1600- to bepicked upby father- walker has been obtained and baghas been packed-rx sentto [facility] [place]- Addendum entered by Meghna Agosto R.N. 01/28/21 15:03: spoke with PT analysis manager, ANITHA and asked about sending pt home with walker- she stated that we needed to measure it and have actual RX for same and it shouldn't be an issue Addendum entered by Meghna Agosto R.N. 01/28/21 13:32: preparations being made for discharge to home ( fathers house) until family can make other arrangements - home health ordered and can see pt in home as early as tomorrow- pt hopeful for this to happen Addendum entered by Meghna Agosto R.N. 01/28/21 12:19: pt declined to eat lunch but did take a cup of sherbet and is eating that - declined any other food stating too close between lunch and dinner- pt continues to ambulate in room unassisted and frequenty using restroom- herports only urination no bm since during night Addendum entered by Meghna Agosto R.N. 01/28/21 11:28: meeting with MD @ present and stating I have no where to go endorses eating better and feeling more normal Original Note: pt cooperative this am- up ad-jess wandering in room both with and without the walker- frequently going into the bathroom and always washing his hands afterwards- he has allowed me to listen to his lungs and reports pain mostly in my ankles but really everywhere my abdomen jis something else pt was given the choice of po acetaminophen ot oxycodone 2.5mg- he chose the oxycodone and this was administered with his breakfast- which he consumed about 1/2 of eggs and few bites of hashbrowns- but was interested and took several bites of abreu filled doughnut ( offered by staff) -
[2021-01-28 09:53] VITALS: BP 101/75; PULSE 101; O2SAT 95
[2021-01-28 12:37] VITALS: BMI 13.2
--- NOTE | 2021-01-28 22:18 | PM.DS.1 ---
History of Present Illness History of Present Illness Chief complaint: FTT Narrative: Per H and P from Dr. Dodson: The patient is a 60-year-old male with an on diagnosis psychiatric disorder likely schizophrenia who presents to the hospital for nausea vomiting abdominal pain and significant weight loss. Patient is a poor historian. He is somewhat agitated and irritable related to answering questions which were previously discussed in the emergency department. Having said that the patient reports for the past 7 weeks he has been unable to eat. He describes significant nausea and inability to tolerate taking anything orally. He has had associated abdominal pain also for the past 7 weeks. He denies any vomiting. He denies any hematemesis. He denies any melena. He denies bright red blood per rectum. Patient states he used to drink heavily. He quit about 7 weeks ago. He reports fevers but is unclear how high his temperature was. He has no chills, no shortness of breath. The patient states he has lost over 130 lb over the past 6 months. He believes that the FBI is monitoring him and after him. He does admit to using marijuana for an appetite stimulant but is on no other medications. The patient has not seen a physician in many years. Patient reports he quit smoking however per his sister he continues to smoke significantly. The sister the came from [place] to visit him and recommended he present to the hospital for further evaluation. The patient is significantly mac aided. He refuses to cooperate with answering questions in the further and is admitted to the hospital for further evaluation. In the emergency room his white count was 3.6, hemoglobin 11.6, hematocrit 33.6. His MCV is 101. His sodium was 128 potassium 2.2 chloride 80 CO2 of 39 BUN of 27 with a creatinine of 1.1 his total protein is 6 albumin is 2.9 lipase is 466. His COVID test PCR is negative. Patient had a CT of the abdomen and pelvis remarkable for peripancreatic fat stranding with fluid compatible with acute pancreatitis. There was hypo enhancement demonstrated within the pancreatic head, uncinate process, and body suggestive of necrotizing pancreatitis. There was a curvy linear hypoattenuating loculated fluid collection anteriorly to the pancreatic head. This is 2.6 cm anteriorly 3 cm craniocaudal and 0.7 cm in thickness. This is felt to be in acute necrotic collection. There is also distally in the pancreatic tail a loculated thick-walled peripancreatic collection measuring 2 x 1 cm. This is contiguous with an intrapancreatic loculated fluid collection in the pancreatic tail measuring 1.6 x 1.3 the gastric wall is thickened in the antrum. Patient also had a head CT in the emergency department which was negative. Chest x-ray confirmed no acute pulmonary process. Patient is admitted to the hospital for further evaluation of his necrotizing pancreatitis and significant weight loss. Patient was hypotensive in the emergency room with his systolic blood pressure of 81/55. Serum lactate was normal. The patient was admitted to the hospital for necrotizing pancreatitis, dehydration, and significant severe protein calorie malnutrition. Discharge Providers Provider Date of admission: 01/17/21 14:59 Discharge Date: 01/28/21 Primary care physician: Peter Fernández MD Consults: 01/17/21 16:57 Consult to Dietitian, Adult Routine Comment: Reason For Exam: failure to thrive. poor nutrition 01/17/21 17:26 Consult to Dietitian, Adult Routine Comment: Reason For Exam: malutrition 01/17/21 17:45 Consult to Dietitian, Adult Routine Comment: Reason For Exam: necrotizing pancreatitis 01/21/21 12:09 Consult to Physician Routine Comment: Consulting Provider: Jack Prakash Reason for consultation: possible schizophrenia with hallucinations, interfering with nutrition 01/21/21 12:58 Consult to Occupational Therapy Evaluate & Treat Comment: Physician Instructions: Evaluate and treat Consult to Physical Therapy Evaluate & Treat Comment: Physician Instructions: Evaluate and Treat 01/23/21 11:43 Consult to Palliative Care Routine Comment: Consulting Provider: Samantha Montiel 01/28/21 12:36 Consult to Home Health Routine Comment: DX: Malnutrition Reason For Exam: PT/OT/JAVA PORTAL DEVELOPER/RN/APPLIED BIOLOGY PROFESSOR 01/28/21 13:03 Consult to Home Health Routine Comment: D/C on 01-28-21. Reason For Exam: FWW for home use Discharge provider: Jt Navarrete MD Summary Hospital Course Discharge Diagnosis: 1. Acute necrotizing pancreatitis 2. Severe protein calorie malnutrition 3. Tobacco dependence 4. Delusions from previous substance abuse vs paranoid schizophrenia 5. Hypokalemia 6. Hyponatremia 7. Hypovolemic shock 8. Hypophosphatemia Hospital Course: Mr. Graf was admitted with severe weight loss, abdominal pain that had been present for years. He was noted to have necrotizing pancreatitis with small gallstones noted. Lipase was only elevated to 466. He was initially hypotensive and briefly required levophed. MRCP showed biliary sludge. Surgery was consulted and said no surgical intervention was needed. He did improve with IV fluids and his pain improved and he was able to start eating. His diet was advanced. He started to improve the amount he was eating and was able to avoid being placed on TPN. Patient also had paranoid delusions and was seen by psychiatry who thought he possibly had delusions and psychosis from previous substance abuse vs less likely paranoid schizophrenia. He was started on olanzapine. Discussions were had with family about possible hospice, family was intered in getting patient medicaid and into [facility] facility. Patient was counseled to discontinue smoking. Patient will need a new PCP. He will be referred follow up with psychiatry. He will have home health nursing and PT for additional help at home. He lives with his elderly father who has difficulty in providing care for him, and as stated above family is attempting local intermodal truck driver care placement. Status at Discharge Cognitive/behavioral status at discharge: oriented and at baseline, oriented Functional status at discharge: uses cane/walker Overall status at discharge: patient is progressing back to baseline Exam Vital Signs (past 8 hours): Oxygen Delivery Method Room Air Oxygen Flow Rate 0 Narrative Exam Narrative: Gen: chronically ill appearing, emaciated, dishevelled, no acute distress HEENT: bitemporal wasting, pale, moist membranes, neck is supple without adenopathy, no thyromegaly Lungs: Decreased breath sounds but clear to auscultation bilaterally Cardiac exam: Regular rate and rhythm normal S1-S2 Abdomen: Soft, nontender, minimal distension. Extremities: No edema Neuro exam: Patient is awake and answers questions appropriately, cooperative he is able to move all extremities Psychiatric exam: flat affect, guarded, limited verbal responses. Objective Labs Result Diagrams: 01/21/21 05:02 01/27/21 09:00 [facility] Medical History Psychosis Social History household members: family Smoking Status: Current every day smoker alcohol intake: never Discharge Plan Discharge Plan Patient Disposition: Home Health Service Provider Discharge Comment: Mr. Graf was admitted with abdominal pain and found to have pancreatitis. He was seen by surgery, and did not require any surgery. He improved with medications and IV fluids. His abdominal pain improved and he began to be able to tolerate eating foods. He did have agitation and was started on zyprexa after recommendations from psychiatry and he did improve. He was discharged home with family with home health. He will need further follow up with a primary care doctor and psychiatrist. Discharge orders & Medications Prescriptions: New olanzapine [Zyprexa Zydis] 10 mg Tablet,Disintegrating 10 mg PO BEDTIME Qty: 30 RF: 0 acetaminophen 325 mg Tablet 650 mg PO Q6HR PRN (Reason: Fever) Qty: 20 RF: 0 Follow up/Referrals: Jack Prakash MD [Physician] - Peter Fernández MD [Primary Care Provider] - Discharge Data Primary Care Provider: Peter Fernández Quality VTE Deep Vein Thrombosis/Pulmonary Embolism Present on Admission: No
--- NOTE | 2021-01-29 08:29 | CM.DPC ---
DCP/continued: HEALTH EDUCATION COORDINATOR reviewed notes on Thursday01-28-21. Per provider patient is medically stable for discharge. At this time patient ambulating in room independently. No SNF need indicated and No SNF has accepted. Therefore, HEALTH EDUCATION COORDINATOR met with patient to discuss d/c plan. Patient alert but not oriented. Patient reports that he would like to return to his Dad's at time of d/c. Patient seen by Dr. Prakash and dave started. RN reports that patient's appetite has increased and his overall mental status is better. With patient's permission placed call to patient's sister [place]. Family made aware that patient is medically stable. Instructed sister to initiate Medicaid application for patient via online. Sister in agreement and reports that application has been submitted. In addition, HEALTH EDUCATION COORDINATOR completed [facility] application and faxed. HEALTH EDUCATION COORDINATOR spoke with [facility] this AM and instructed them to follow up with sister as outpatient. Sister and patient's Father in agreement to take patient home on Thursday01-28-21. Home health arranged through [facility] for PT/OT/TOOLS AND PARTS ATTENDANT/RN/HEALTH EDUCATION COORDINATOR. Services expected to start within 48hrs of discharge. Sister understands the importance of patient getting approved for Medicaid for senior care placement. Sister confirms that patient's father is preparing to move into senior setting and sell residence. Sister requesting list of facilities covered by medicaid for computer terminal operator purposes. HEALTH EDUCATION COORDINATOR emailed list of medicaid approved Adult Family Homes and Assisted Living facilities. P: Patient to return home on Thursday01-28-21. Services initiated with Medicaid, [facility], and home health arranged through [facility]. Provider in agreement to follow home health until PCP confirmed. LELE Veras
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
== END 2021-01-28 16:24 | disposition home or self-care (01) | DRG 438 ==
LOC: ED 14:55 → AC 15:00 → ICU 01-18 08:52 → AC 01-23 10:43
PROVIDERS: Internal Medicine; Nurse Practitioner Adult Health; Admitting Provider Internal Medicine; Emergency Provider Emergency Medicine; Family Provider Internal Medicine; PCP Internal Medicine; Referring Provider Emergency Medicine; Visit Provider Internal Medicine
DX: K85.91 Acute pancreatitis with uninfected necrosis, unspecified (principal); E43 Unspecified severe protein-calorie malnutrition; R57.1 Hypovolemic shock; Z68.1 Body mass index [BMI] 19.9 or less, adult; E87.1 Hypo-osmolality and hyponatremia; F20.0 Paranoid schizophrenia; E87.6 Hypokalemia; R79.89 Other specified abnormal findings of blood chemistry; E83.39 Other disorders of phosphorus metabolism; F17.210 Nicotine dependence, cigarettes, uncomplicated; Z20.822 Contact with and (suspected) exposure to COVID-19
CPT/HCPCS: 36415; 36592; 70450; 71045; 74177; 74181; 80048; 80053; 80076; 80305; 82550; 82962; 83605; 83690; 83735; 83880; 84100; 84134; 84443; 84484; 85025; 85610; 85730; 87040; 87635; 87797; 90792; 93005; 93306; 96365; 96366; 96367; 97116; 97163; 97167; 97530; 97535; 99284; 99285; C9803; A9270; J1630; J1642; J1650; J2060; J2270; J2543; J3475; J3480; Q9967; S0166